=== PATIENT | male | born 1945 | race Caucasian/White ===

== ENCOUNTER 2017-08-01 06:37 | Inpatient (IN) | payer OTHER, SELFPAY ==
[2017-07-25 09:43] VITALS: BMI 34.8
[2017-08-01] VITALS (26 sets, daily range): BP systolic 95–155; BP diastolic 48–87; PULSE 59–75; RESP 8–17; TEMP 35.8–36.9; O2SAT 88–98; BMI 34.8
[2017-08-01] MEDS: LACTATED RINGERS 1,000 ML 42 ML IV ×4 (07:20→14:16)
--- NOTE | 2017-08-01 08:00 | DI.RAD.S_ITS ---
PROCEDURE: XR LUMBAR SPINE 2-3V INDICATIONS: L3-4, L4-5, L5-S1 TLIF TECHNIQUE: 2 views of the lumbar spine were acquired. COMPARISON: [facility] Outside Film, CR, XR LUMBAR SPINE 2 OR 3 VIEWS, 12/04/2016, 15:17. FINDINGS: 2 intraoperative fluoroscopy images demonstrate discectomy and posterior fusion at L3-L4, L5-L5 and L5-S1. Surgical hardware are in expected position. IMPRESSION: Discectomy and posterior fusion at L3-L4, L5-L5 and L5-S1. Dictated by: Wendie Castillo M.D. on 08/01/2017 at 14:30 Approved by: Wendie Castillo M.D. on 08/01/2017 at 14:32
[2017-08-01] MEDS: CEFAZOLIN 2 GM/100 ML FROZ.PIGGY IV ×3 (08:09→19:20)
--- NOTE | 2017-08-01 09:06 | SUR.OPER ---
Prone on spine table, head in foam head support, padded chest and pelvic supports, gel pad at knees, lower legs supported by pillows; nipples, genitalia and toes free of pressure, arms secured on foam padded arm boards at <90 degrees abduction. Tape over blanket at thigh secured to table.
[2017-08-01] MEDS: BUPIVACAINE 0.25% W/ EPI 50 ML VIAL INJ (09:13)
[2017-08-01] MEDS: BUPIVACAINE LIPOSOME 266 MG/20 ML VIAL INJ (09:14)
[2017-08-01] MEDS: ACETAMINOPHEN IV 1,000 MG/100 ML VIAL 400 MG IV (12:01)
--- NOTE | 2017-08-01 13:35 | PM.PREOP ---
Pre-operative Note Interval Note Pre-op Check: History & Physical Reviewed by Physician, Exam Performed and History & Physical exam performed today
--- NOTE | 2017-08-01 13:36 | PM.OP.1 ---
Operative Date/Time/Diagnoses - Date of procedure: 08/01/17 Time of procedure: 08:36 Pre-op diagnosis: 1. L3-4, L4-5, L5-S1 spinal stenosis. 2. L3-4, L4-5, L5-S1 spondylolisthesis 3. L3-4, L4-5, L5-S1 spondylosis with radiculopathy Post-op diagnosis: same Procedure & Clinicians Procedure: 1. L3-4, L4-5, L5-S1 Postero-lateral and posterior interbody fusion 2. L3-4, L4-5, L5-S1 interbody cage placement. 3. L3-4, L4-5, L5-S1 decompressive laminectomy with bilateral facetecomies 4. L3-4, L4-5, L5-S1 Posterior segmental instrumentation 5. [place] of bone marrow from iliac crest 6. Utilization of microsurgical technique and operating microscope Same procedure as scheduled: Yes Indications: Patient has been having chronic back pain and worsening lumbar radiculopathy. Patient failed multiple conservative management with worsening pain weakness and numbness in her lower extremity. Patient has been having difficulty performing activity of daily living. After discussing risks benefits of treatment options, patient elected proceed with surgery. Surgeon: Sabina Wayne [employer] Technician: Gali Garcia Click Yes if Unassisted: No Anesthesia Type: General Operative Notes Closure Type: primary Specimen(s): none sent Applied: catheter Estimated Blood Loss (mL): 400 Blood products transfused: none Procedure in detail: Patient was seen in the preoperative area. Risks and benefits of the surgery was discussed with the patient. Informed consent was obtained from the patient and placed in the chart. Surgical site was marked. Patient was taken to the operative room. General anesthesia was administered. Prophylactic antibiotic was given to the patient less than 30 min before the incision was made. Patient was placed into a prone position on the Rashaad table. Patient's back was then prepped and draped in the sterile fashion. Time-out was performed at this time. Using AP and lateral C-arm imaging the interval between L3-S1 was identified and marked on patient's back. A 3 inch incision 2 in from midline was made on the left side first. The fascia was incised in line with skin incision. Globus MARS retractors was placed inside the incision and docked onto the L3, L4 and L5 lamina. Using microsurgical technique and operating microscope, a L3, L4 and L5 laminectomy and L3-4, L4-5 L5-S1 facetectomy was performed using a Kerrison rongeur. The disc space at L3-4, L4-5, L5-S1 was identified. And a total diskectomy was performed at L3-4, L4-5, L5-S1 level. The endplates were decorticated using a rasp and shaver. The total diskectomy and decortication was performed at L3-4, L4-5, L5-S1 level in order to to accomplish a L3-4, L4-5, L5-S1 fusion. The local bone from the laminectomy and facetectomy was saved for local bone grafting. After the total diskectomy and decortication was completed, Globus viacell bone graft material was combined with local bone that was harvested earlier. At this time, a separate skin is incision was made over the iliac crest. A Jamshidi needle was inserted into the iliac crest through a separate skin incision. 5 cc of bone marrow aspiration was obtained through the separate skin incision using a Jamshidi needle from the iliac crest. The bone marrow aspiration was combined with local bone and the via cell bone grafting material. The bone grafting material was placed into the L3-4, L4-5, L5-S1 interbody space along with three cages, one expandable cage at each level. The cages were expanded to their maximum height using the torque limiting screwdriver. At this time a mirror image incision was made on the right side. The fascia was incised in line with the skin incision. Globus MARS retractor was inserted and docked onto the L3-4, L4-5, L5-S1 posterolateral gutter. Using the power drill, posterior-lateral decortication was performed at L3-4, L4-5, L5-S1 level until bleeding cortical bone was identified. The remaining bone grafting material was placed into the L3-4, L4-5 L5-S1 posterior lateral gutter he order to accomplish posterolateral fusion at the L3-4, L4-5 L5-S1 levels. Using the double C-arm technique, pedicle screws were placed into the L3, L4, L5, S1 pedicles bilaterally. This was done by placing the Jamshidi needle into the pedicles, then placing the guidewires over the Jamshidi needle, and finally placing the cannulated screws over the guidewires bilaterally. After the pedicle screws were placed, 2 titanium rods was locked into the heads of the pedicle screws using locking caps and torque limiting screwdriver. Total 8 pedicles screws were placed. After all the hardware was placed, and confirmed with AP and lateral C-arm imaging, the wound was then irrigated with sterile normal saline and packed with Ray-Reji gauze for 3 min to accomplish hemostasis. After the gauze was removed the deep fascia was closed with #1 Vicryl suture. The subcutaneous layer was closed with 2-0 Vicryl. The skin was closed with skin kaylee. Patient tolerated the procedure well. There were no complications. Complications: none Condition: stable Disposition: Acute Care Plan for aftercare: admit to inpatient hospital
--- NOTE | 2017-08-01 13:39 | P.OP_ITS ---
Operative Date/Time/Diagnoses - Date of procedure: 08/01/17 Time of procedure: 08:36 Pre-op diagnosis: 1. L3-4, L4-5, L5-S1 spinal stenosis. 2. L3-4, L4-5, L5-S1 spondylolisthesis 3. L3-4, L4-5, L5-S1 spondylosis with radiculopathy Post-op diagnosis: same Procedure & Clinicians Procedure: 1. L3-4, L4-5, L5-S1 Postero-lateral and posterior interbody fusion 2. L3-4, L4-5, L5-S1 interbody cage placement. 3. L3-4, L4-5, L5-S1 decompressive laminectomy with bilateral facetecomies 4. L3-4, L4-5, L5-S1 Posterior segmental instrumentation 5. [place] of bone marrow from iliac crest 6. Utilization of microsurgical technique and operating microscope Same procedure as scheduled: Yes Indications: Patient has been having chronic back pain and worsening lumbar radiculopathy. Patient failed multiple conservative management with worsening pain weakness and numbness in her lower extremity. Patient has been having difficulty performing activity of daily living. After discussing risks benefits of treatment options, patient elected proceed with surgery. Surgeon: Sabina Wayne Web Manager: Gali Garcia Click Yes if Unassisted: No Anesthesia Type: General Operative Notes Closure Type: primary Specimen(s): none sent Applied: catheter Estimated Blood Loss (mL): 400 Blood products transfused: none Procedure in detail: Patient was seen in the preoperative area. Risks and benefits of the surgery was discussed with the patient. Informed consent was obtained from the patient and placed in the chart. Surgical site was marked. Patient was taken to the operative room. General anesthesia was administered. Prophylactic antibiotic was given to the patient less than 30 min before the incision was made. Patient was placed into a prone position on the Rashaad table. Patient's back was then prepped and draped in the sterile fashion. Time- out was performed at this time. Using AP and lateral C-arm imaging the interval between L3-S1 was identified and marked on patient's back. A 3 inch incision 2 in from midline was made on the left side first. The fascia was incised in line with skin incision. Globus MARS retractors was placed inside the incision and docked onto the L3, L4 and L5 lamina. Using microsurgical technique and operating microscope, a L3, L4 and L5 laminectomy and L3-4, L4-5 L5-S1 facetectomy was performed using a Kerrison rongeur. The disc space at L3-4, L4-5, L5-S1 was identified. And a total diskectomy was performed at L3-4, L4-5, L5-S1 level. The endplates were decorticated using a rasp and shaver. The total diskectomy and decortication was performed at L3-4, L4-5, L5-S1 level in order to to accomplish a L3-4, L4-5 , L5-S1 fusion. The local bone from the laminectomy and facetectomy was saved for local bone grafting. After the total diskectomy and decortication was completed, Globus viacell bone graft material was combined with local bone that was harvested earlier. At this time, a separate skin is incision was made over the iliac crest. A Jamshidi needle was inserted into the iliac crest through a separate skin incision. 5 cc of bone marrow aspiration was obtained through the separate skin incision using a Jamshidi needle from the iliac crest. The bone marrow aspiration was combined with local bone and the via cell bone grafting material. The bone grafting material was placed into the L3-4, L4-5, L5-S1 interbody space along with three cages, one expandable cage at each level. The cages were expanded to their maximum height using the torque limiting screwdriver. At this time a mirror image incision was made on the right side. The fascia was incised in line with the skin incision. Globus MARS retractor was inserted and docked onto the L3-4, L4-5, L5-S1 posterolateral gutter. Using the power drill , posterior-lateral decortication was performed at L3-4, L4-5, L5-S1 level until bleeding cortical bone was identified. The remaining bone grafting material was placed into the L3-4, L4-5 L5-S1 posterior lateral gutter he order to accomplish posterolateral fusion at the L3-4, L4-5 L5-S1 levels. Using the double C-arm technique, pedicle screws were placed into the L3, L4, L5 , S1 pedicles bilaterally. This was done by placing the Jamshidi needle into the pedicles, then placing the guidewires over the Jamshidi needle, and finally placing the cannulated screws over the guidewires bilaterally. After the pedicle screws were placed, 2 titanium rods was locked into the heads of the pedicle screws using locking caps and torque limiting screwdriver. Total 8 pedicles screws were placed. After all the hardware was placed, and confirmed with AP and lateral C-arm imaging, the wound was then irrigated with sterile normal saline and packed with Ray-Reji gauze for 3 min to accomplish hemostasis. After the gauze was removed the deep fascia was closed with #1 Vicryl suture. The subcutaneous layer was closed with 2-0 Vicryl. The skin was closed with skin kaylee. Patient tolerated the procedure well. There were no complications. Complications: none Condition: stable Disposition: Acute Care Plan for aftercare: admit to inpatient hospital
[2017-08-01 14:19] LABS: Appearance Urine UA CLEAR; Bilirubin Urine UA NEGATIVE (NEGATIVE); Color Urine UA YELLOW; Glucose Urine UA NEGATIVE (Normal); Ketones Urine UA NEGATIVE (NEGATIVE); Leukocyte Esterase Urine UA NEGATIVE (NEGATIVE); Nitrite Urine UA POSITIVE (Negative); Occult Blood Urine UA 3+ (Negative); Protein Urine UA TRACE (Negative); Specific Gravity Urine UA 1.025 (1.000-1.035); Urobilinogen Urine UA 0.2 E.U./dL (0.2)
--- NOTE | 2017-08-01 14:25 | SUR.PHASEI ---
DR ROSEN TO BEDSIDE, PT ON NASAL CANNULA THEN ON SIMPLE MASK 02 FROM 6/L NOW 15. PT OPEN EYES TO LOUD NAME CALLING. RESPIRATIONS ARE EQUAL BUT SHALLOW. MORE RESPONSIVE TIME GOES ON, NOW MOVING ALL EXTREMITIES TO COMMAND
[2017-08-01 14:28] LABS: Bacteria Urine Few (2-10); WBC Urine 0-1/HPF (0-5/HPF)
[2017-08-01 14:29] LABS: Culture Indicated Urine Specimen Cultured; RBC Urine 5-10/HPF (0-5/HPF)
--- NOTE | 2017-08-01 14:54 | SUR.PHASEI ---
PT'S AIRWAY OUT, RT CALLED TO ASSIST WITH CPAP. SATS 91-93% ON CPAP WITH 12L OF 02 BLED IN. PT FOLLOWS COMMANDS, PT DIAPHORETIC, PT STATED YES WHEN ASKED IF HE WAS HOT. PT'S HEAVY BLANKETS REMOVED, LEFT WITH SHEET.
--- NOTE | 2017-08-01 15:21 | SUR.PHASEI ---
PT'S 02 90-96% ON CPAP WITH 14/L 02. VSS, TAKING ICE CHIPS WELL. DENIES PAIN, STILL SLEEPY EASILY AROUSABLE AND FOLLOWS COMMANDS, DRESSING TO BACK REMAINS C/D/I.
--- NOTE | 2017-08-01 15:28 | SUR.PHASEI ---
LATE ENTRY: UPON ARRIVAL TO PACU URINE CLOUDY/PURULENT- DR MONSIVAIS INFORMED AND UAC SENT TO LAB.
--- NOTE | 2017-08-01 16:22 | SUR.PHASEI ---
spoke with dr delarosa and dr mayo about pt's mentation, vss and oxygen needs and neuro status. both agreeded that pt was ok to go to acute care along with ordered RT consult and continuous pulse ox. both understood valerie score was 8. report updated to dorian on acute care and pt transferred up to room 204 on nasal cannula 02 4/l and left in stable condition.
[2017-08-01] MEDS: SODIUM CHLORIDE 0.9% 1,000 ML 100 ML IV (17:13)
[2017-08-01] MEDS: OXYCODONE IR 5 MG TABLET 10 MG PO ×2 (19:20→23:59)
--- NOTE | 2017-08-01 20:45 | PC.NURSE ---
1610 Pt arrived to room 204 from PACU via bed. SpO2 96% 2Lnc, brought own CPAP for sleeping. LS clear, BT hypo and tolerating ice chips. Lower back drsg CDI, CMS ++ full sensation, move BLE's, wiggle toes and ankles, move UE's, repositioning PRN. Berger patent and draining clear yellow urine, reported purulence drainage with placement, lab specimen pending. Hx of Parkinson's, pt brought own Parkinson's medication, Rytary, which pt takes 30min before or after meals (protein). Pt reports strict regimen for this medication. denied pain at begining, but reported 03/17 1919, but declined to take 10mg, 2 tabs percolone as ordered, took 5mg, 1 tab, effective. is caregiver as well, and has a method for transfering pt. rooming in.
[2017-08-01] MEDS: TAMSULOSIN 0.4 MG CAPSULE PO (21:43)
[2017-08-01] MEDS: LOSARTAN 50 MG TABLET PO (21:43)
[2017-08-01] MEDS: DOCUSATE 100 MG CAPSULE PO (21:43)
[2017-08-01] MEDS: SENNOSIDES 8.6 MG TABLET 17.2 MG PO (21:43)
[2017-08-02] VITALS (7 sets, daily range): BP systolic 121–138; BP diastolic 64–77; PULSE 65–77; RESP 16–17; TEMP 36.5–37.4; O2SAT 91–100
[2017-08-02] MEDS: hydrOXYzine pamoate 25 MG CAPSULE PO ×2 (00:01→15:59)
[2017-08-02] MEDS: SODIUM CHLORIDE 0.9% 1,000 ML 100 ML IV (03:19)
[2017-08-02] MEDS: CEFAZOLIN 2 GM/100 ML FROZ.PIGGY IV (03:20)
[2017-08-02] MEDS: OXYCODONE IR 5 MG TABLET 10 MG PO ×4 (03:25→16:03)
[2017-08-02 06:54] LABS: Hematocrit 37.8 % (41-53); Hemoglobin 12.7 g/dL (13.5-17.5)
[2017-08-02] MEDS: ACETAMINOPHEN 325 MG TABLET 650 MG PO ×3 (08:01→19:09)
--- NOTE | 2017-08-02 09:10 | PT.IIE ---
Current Diagnoses Spondylolisthesis, lumbar region (08/01/17) Other spondylosis with radiculopathy, lumbar region (08/01/17) Spinal stenosis, lumbar region without neurogenic claudication (08/01/17) Surgery Performed Operation Date: 08/01/17 07:45 Actual Procedures p L3-4,L4-5,L5-S1 TLIF w/Posterior Ximena Wayne MD Surgical History (Last Updated 07/25/17 @ 10:17 by Florina Taylor RN) Hx of hernia repair (Acute) Hx of prostate biopsy (Acute) Hx of right knee surgery (Acute) Hx of shoulder surgery (Acute) Medical History (Last Updated 07/25/17 @ 10:17 by Florina Taylor RN) Arthritis (Acute) Basal cell carcinoma (BCC) (Acute) Cervical radiculopathy (Acute) Elevated PSA (Acute) HTN (hypertension) (Acute) Heart murmur (Acute) History of bladder stone (Acute) Intermittent tremor (Acute) Paresthesias (Acute) Parkinson's disease (Acute) Skin cancer (Acute) Sleep apnea with use of continuous positive airway pressure (CPAP) (Acute) Spinal stenosis (Acute) Physical Therapy Inpatient Evaluation/Re-Eval M1 PT/OT-IP Prior Functional Status Start: 08/02/17 12:19 Freq: NEEDED Status: Active Protocol: Document 08/02/17 09:10 AB (Rec: 08/02/17 12:46 AB [id number]) Medical Review Prior Functional Status Medical History Reviewed Yes Mobility and Gait pt stated that he is able to ambulate without AD for ~ 150 ft Activities of Daily Living and IADL's stated that his assists him with dressing, bed mobility and sit <>stand Social History Household Members spouse family other Living Arrangements House Number of Floors (Floors) One Floor Number of Stairs To Enter/Railing? has a 5 inch step to enter Home Environment Walk in Shower Home Equipment Raised Toilet Seat w/Armrests Shower Seat with Backrest Hand Held Shower Grab Bars Near Toilet Grab Bars In Shower Employment Status Retired Additional Social History Comment pt's stated that her dad also lives with them and she somewhat takes care of him as well. M2 PT-IP Current Condition Start: 08/02/17 12:19 Freq: NEEDED Status: Active Protocol: Document 08/02/17 09:10 AB (Rec: 08/02/17 12:46 AB [id number]) Physical Therapy Current Condition Current Condition Evaluation Date 08/02/17 Treatment Diagnosis s/p TLIF Onset Date 08/01/17 Precautions Lumbar Precautions Log Roll No Twisting Limit Bending Lifting Restriction of 10 lbs Gait Belt above Incisional Area M3 PT-IP Subjective Start: 08/02/17 12:19 Freq: NEEDED Status: Active Protocol: Document 08/02/17 09:10 AB (Rec: 08/02/17 12:46 AB [id number]) Subjective Physical Therapy Visit Type Type Initial Evaluation Visit Start Time 09:10 Visit Stop Time 10:00 Total Visit Minutes 50 Number of RECORDS SPECIALIST Visits 0 Physical Therapy Visit Comments Patient Comments i feel ok Therapy Pain Assessment Pain When Pain Assessed At Rest Pain Present Pain Present Pain Reported Location BACK Intensity 3 Scale Used Numeric (1 - 10) Pain Management Techniques Apply Cold Re-positioning Timing of Activity with Medications M4 PT-IP Mobility and Gait Start: 08/02/17 12:19 Freq: NEEDED Status: Active Protocol: Document 08/02/17 09:10 AB (Rec: 08/02/17 12:46 AB [id number]) PT-Bed Mobility Assessment Rolling Type of Rolling Log Rolling Level of Assist Maximal Assistance 1 Person Assistance Supine to Sit Supine to Sit Maximum Assistance 1 Person Assistance PT-Transfer Assessment Sit to and From Stand Sit to and from Stand Maximum Assistance 1 Person Assistance Equipment Transfer Assistive Device Gait Belt Front Wheeled Walker Transfers Transfer Destination Chair Transfer Technique Stand Step Pivot Transfer Ability Level of Assist Maximum Assistance 1 Person Assistance Use of Upper Extremities Comments Mobility Comments pt with (+) LLE tremors affecting mobility. pt's spouse stated that pt also has bad shoulders and needing surgeries and will not be able to use UE much. Gait Assessment Gait Gait Assistance Required: Maximum Assistance Distance (Feet) (feet) 8 Able to Maintain Weight Bearing Status Yes During Gait Assistive Devices Assistive Device Gait Belt Front Wheeled Walker Orthotic/Prosthetic Devices or Brace: No Gait Deviations General Gait Pattern Antalgic Decreased Stride Length Decreased Feet Clearance Step-to Gait Factors Limiting Gait Function Factors Limiting Gait Function Abnormal Tonal Influences Decreased Activity Tolerance Decreased Strength Difficulty Following Directions Pain Poor Balance Poor Safety Awareness PT-Balance Assessment Sitting Balance and Reactions Static Sitting Balance Ability Good Dynamic Sitting Balance Ability Fair Standing Balance and Reactions Static Standing Balance Ability Poor Dynamic Standing Balance Ability Poor M5 PT-IP Objective Assessments Start: 08/02/17 12:19 Freq: NEEDED Status: Active Protocol: Document 08/02/17 09:10 AB (Rec: 08/02/17 12:46 AB [id number]) Orientation Orientation/Cognition Level of Alertness Alert Orientation Name Place Situation Safety Awareness Decreased Safety Awareness Strength Lower Extremity Strength Assessment Bilaterally Impaired Hip 4-/5 Knee 3+/5 Muscle Tone Comments Muscle Tone Comments (+) LLE resting tremor M6 PT-IP Treatment Start: 08/02/17 12:19 Freq: NEEDED Status: Active Protocol: Document 08/02/17 09:10 AB (Rec: 08/02/17 12:46 AB [id number]) Physical Therapy Treatment Education Education Provided Precautions Weight Bearing Status Post-Op Packet Safety M7 PT-IP Assessment and Plan Start: 08/02/17 12:19 Freq: NEEDED Status: Active Protocol: Document 08/02/17 09:10 AB (Rec: 08/02/17 12:46 AB [id number]) PT Summary Assessment and Plan Potential Rehabilitation Potential Fair Status of Condition at Evaluation Evolving Summary Impairments Pain ROM Strength Balance Coordination Sensation Tone Cognition Bed Mobility Transfers Gait Activity Tolerance Assessment Summary pt requiring max A with all mobility at this time. d/c plan depending if spouse will be able to assist pt safely. will conduct caregiver training and stair training and if able to safely complete , pt may go home with homehealth services but at this time pt may require SNF rehab. Goals Bed Mobility Goal Minimal Assistance Transfer Goal Minimal Assistance Gait Goal Minimal Assistance Gait Distance 10 Other Goals up/down 1 step using FWW Days to Meet Goals 3 Frequency of Treatment Frequency Of Treatment Twice a Day Treatment Plan Physical Therapy Treatment Plan Bed Mobility Training Transfer Training Gait Training Therapeutic Exercise Balance Retraining Post Op Education Discharge Planning Hot or Cold Pack Neuromuscular Re-ed Coordination Retraining Manual Therapy Other Recommendations and Next Treatment transfers, ambulation Focus Recommendations To Nursing Amount of Assist Needed 2 Person Assist Discharge Recommendations PT Discharge Recommendations SNF Rehab Equipment Needed for Home Before may need FWW if pt is going Discharge home
--- NOTE | 2017-08-02 10:13 | PM.PNPO.1 ---
Subjective Date Patient Seen: 08/02/17 Time Patient Seen: 10:13 Interval history: Hospital day 2, postop day 1 following L3-4 through L5-S1 TLIF, cage, posterior screw fixation by Dr. Wright. Patient remained stable postoperatively. He has not been out of bed yet. No physical therapy yet. Does have a Berger catheter in place. Taking oxycodone for pain. He states his preoperative leg pain has improved since surgery. The patient does have Parkinson's. His is staying in the room with him. Exam Vital Signs (past 8 hours): - 08/02/17 04:55 08/02/17 08:00 Temperature 97.7 F 98.4 F Pulse Rate 70 65 Respiratory Rate 16 16 Blood Pressure 121/67 H 132/75 H Pulse Oximetry 100 99 Fraction of Inspired Oxygen 28 Oxygen Delivery Method Nasal Cannula Oxygen Flow Rate 2 Narrative Exam Narrative: Alert, oriented no acute distress resting in bed. Legs. No calf pain or swelling. Pulses symmetrical. Good sensation to touch to the lower legs. Good strength on foot dorsiflexion plantar flexion. Objective Labs Result Diagrams: 08/02/17 06:25 Labs: Laboratory Results - last 24 hr 08/01/17 08/02/17 13:53 06:25 Hgb 12.7 L Hct 37.8 L Urine Color Yellow Urine Appearance Clear Urine pH 5.0 Ur Specific [place] 1.025 Urine Protein Trace H Urine Glucose (UA) Negative Urine Ketones Negative Urine Occult Blood 3+ H Urine Nitrate Positive Urine Bilirubin Negative Urine Urobilinogen 0.2 Ur Leukocyte Esterase Negative Urine RBC 5-10/hpf H Urine WBC 0-1/hpf Urine Bacteria Few (2-10) H Ur Culture Indicated? Specimen cultured Micro UA Comment Not Reportable Assessment & Plan Post-op Postoperative Procedures Operation Date: 08/01/17 07:45 Actual Procedures Side Surgeon p L3-4,L4-5,L5-S1 TLIF w/Posterior Instru Sabina Wayne MD Postoperative day: 1 Postoperative status: doing well Postoperative plan: routine post-op care Time Spent With Patient less than 15 minutes
--- NOTE | 2017-08-02 11:02 | CM.DANOTE ---
DCP: assessment: case received, EMR reviewed and met with pt, his Alana ([phone]) and daughter Kira. Introduced self and role. DCP template: completed with info currently available. Pt is a 72 year old male with dx of Parkinson's who admitted yesterday for a planned spinal surgery. Surgeon: Dr. Wayne Payer: [facility] ADV. No [facility] CM is yet assigned, per [facility] PAS report. PT and OT will see pt today for the first time. Pt and his state they are hopeful that he will be able to d/c to home. His is able to provide supportive care and already does help him with transfers in and out of chairs and bed and with dressing. Alana asks about snf and says we were told he would have 100 days if needed. Explained [facility] snf process. SNF choice list: discussed: 1 [facility] 2 [facility] ([facility] has called and confirmed both are [place] with [place]). Pt and Alana are now aware that [facility] auth would be needed and if not received snf care would be under a private pay status. P: agreed to check in again tomorrow after OT and PT notes are in and see if snf request to [facility] will be needed. Pt and Alana both again express their confidence that pt will be able to go home at d/c. Home vs snf...in process.
--- NOTE | 2017-08-02 11:54 | OT.IP.EVAL ---
Current Diagnoses Spondylolisthesis, lumbar region (08/01/17) Other spondylosis with radiculopathy, lumbar region (08/01/17) Spinal stenosis, lumbar region without neurogenic claudication (08/01/17) Surgery Performed Operation Date: 08/01/17 07:45 Actual Procedures p L3-4,L4-5,L5-S1 TLIF w/Posterior Ximena Wayne MD Past Medical History (Last Updated 07/25/17 @ 10:17 by Florina Taylor RN) Arthritis (Acute) Basal cell carcinoma (BCC) (Acute) Cervical radiculopathy (Acute) Elevated PSA (Acute) HTN (hypertension) (Acute) Heart murmur (Acute) History of bladder stone (Acute) Intermittent tremor (Acute) Paresthesias (Acute) Parkinson's disease (Acute) Skin cancer (Acute) Sleep apnea with use of continuous positive airway pressure (CPAP) (Acute) Spinal stenosis (Acute) Surgical History (Last Updated 07/25/17 @ 10:17 by Florina Taylor RN) Hx of hernia repair (Acute) Hx of prostate biopsy (Acute) Hx of right knee surgery (Acute) Hx of shoulder surgery (Acute) Occupational Therapy Inpatient Evaluation/Re-Eval M1 PT/OT-IP Prior Functional Status Start: 08/02/17 12:19 Freq: NEEDED Status: Active Protocol: Document 08/02/17 11:54 DENY (Rec: 08/02/17 17:09 DENY [id number]) Medical Review Prior Functional Status Medical History Reviewed Yes Diet/Fluid Consistency Regular Communication WFL Mobility and Gait pt stated that he is able to ambulate without AD for ~ 150 ft Activities of Daily Living and IADL's Pt is independent but slow ith eating, oral care and face washing. assists with hair care due to decreased B shoulder AROM. assists pt with upper and lower body dressing. Pt was indep with standing shower and toileting. Pt still drives. Prior Functional Level (Other details) does all IADLS, manages meds and finances. Social History Household Members spouse family other Living Arrangements House Number of Floors (Floors) One Floor Home Environment Standard Height Toilet Walk in Shower Home Equipment Raised Toilet Seat w/Armrests Shower Seat with Backrest Hand Held Shower Grab Bars Near Toilet Grab Bars In Shower Employment Status Retired Additional Social History Comment pt can use father in law's more accessible bathroom M2 OT-IP Current Condition Start: 08/02/17 16:42 Freq: Status: Active Protocol: Document 08/02/17 11:54 PJM (Rec: 08/02/17 17:09 PJ [email or web address]) Occupational Therapy Current Condition Current Condition Evaluation Date 08/02/17 Treatment Diagnosis decreased self care/functional mobility s/p lumbar lami/ fusion w/Parkinsons Diagnosis Onset Date 08/01/17 Post Operative Precautions Lumbar Precautions Log Roll No Twisting Limit Bending Lifting Restriction of 10 lbs Gait Belt above Incisional Area M3 OT- IP Subjective and Pain Start: 08/02/17 16:42 Freq: Status: Active Protocol: Document 08/02/17 11:54 PJM (Rec: 08/02/17 17:09 PJM [email or web address]) OT- Subjective Occupational Therapy Visit Type Type Initial Evaluation Visit Start Time 11:15 Visit Stop Time 11:54 Total Visit Minutes 39 Occupational Therapy Visit Comments Patient/Caregiver Goals to have less back pain and be able to proceed with L TSA OT Pain Assessment Pain When Pain Assessed After Treatment Pain Present Pain Present Pain Reported Location BACK Intensity 5 Scale Used Numeric (1 - 10) Description Aching Pain Behaviors Guarding M4 OT- IP ADL's Start: 08/02/17 16:42 Freq: Status: Active Protocol: Document 08/02/17 11:54 PJM (Rec: 08/02/17 17:09 PJ [email or web address]) OT [id number] General Evaluation Self-Feeding Ability Independent OT ADL-Grooming General Evaluation Grooming Ability Minimal Assistance Areas Needing Assistance Combing/Brushing Hair Comments OT Grooming Comments pt has difficulty reaching top na back of head due to decreased shoulder AROM OT ADL-Oral Care Comments Oral Care Comments to be assessed OT ADL-Dressing General Eval Upper Body Dressing Ability Moderate Assistance Lower Body Dressing Ability Total Assistance Comments OT Dressing Comments began education re: lower body dressing with adaptive equipt with emphasis on lumbar spine precautions OT ADL-Toileting General Evaluation Toileting Ability Maximum Assistance Comments OT Toileting Comments pt still ahs blakely in place; provided education and resource infromation re: toilet paper aids OT ADL-Bathing Bathing Type Bathing Type Shower Comments OT Bathing Comments to be assessed M5 OT- IP IADL's Start: 08/02/17 16:42 Freq: Status: Active Protocol: Document 08/02/17 11:54 PJM (Rec: 08/02/17 17:09 PJM [email or web address]) OT-Instrumental Activities of Daily Living Deficits IADL Deficits Identified Deficits Home Safety Awareness Awareness of Need for Assistance at Home Good Awareness Medication Management Medication Management Caregiver Provides Supervision Caregiver Administers Money Management Money Management Caregiver Provides Assistance Meal Preparation Meal Preparation Caregiver Provides Assist Transmission Tester Transmission Tester Caregiver Provides Assist Driving Driving Concerns Identified Regarding Safety Driving Comments Pt states he still drives but admits to difficulty with LE motor control. M6 OT- IP Functional Cognition Start: 08/02/17 16:42 Freq: Status: Active Protocol: Document 08/02/17 11:54 PJM (Rec: 08/02/17 17:09 PJM NR) Cognitive Factors Limiting Selfcare Function Cognitive Ability Level of Alertness Alert Attention Span Ability Capable of Focused Attention Capable of Sustained Attention Ability to Follow Commands Able to Follow One Step Commands OT- Vision and Hearing OT- Hearing Assessment OT- Hearing Assessment WFL OT- Vision Assessment Visual Acuity WFL Vision Assessment Comments Pt denies any recent changes M7 OT- IP Mobility and Balance Start: 08/02/17 16:42 Freq: Status: Active Protocol: Document 08/02/17 11:54 PJM (Rec: 08/02/17 17:09 PJM NRTM) OT-Transfer Assessment Comments Mobility Comments See P.T. eval OT- Gait Assessment Comments Gait Ability Comments See P.T. eval OT- Balance Assessment Sitting Balance and Reactions Static Sitting Balance Ability Normal M8 OT- IP Objective Assessments Start: 08/02/17 16:42 Freq: Status: Active Protocol: Document 08/02/17 11:54 PJM (Rec: 08/02/17 17:09 PJM [email or web address]) OT Gross Range of Motion Upper Extremity Range of Motion Assessment Left Impaired ROM Impairments R shoulder scaption limited to ~90 degrees, L shsoulder scaption limited to about 45 degrees. Pt states he needs B shoulder surgery and will have L TSA when recovered from back surgery. Distal AROM WFL. OT Strength Upper Extremity Strength Assessment Left Impaired Shoulder 3/5 R, 3-/5 L Elbow WFL Wrist WFL Hand WFL OT- Coordination Assessment Comments Coordination Comments generally slowed motor movements, no tremors noted this session OT-Muscle Tone Assessment Comments Muscle Tone Comments pt has genralized stiffness from Parkinsons OT Sensation Assessment Comments Summary Comments Pt denies deficits in BUE's M9 OT- IP Assessment and Plan Start: 08/02/17 16:42 Freq: Status: Active Protocol: Document 08/02/17 11:54 PJM (Rec: 08/02/17 17:09 PJM [email or web address]) OT Summary Assessment and Plan Potential Rehabilitation Potential Good Analytic Complexity at Evaluation Moderate Summary OT Impairments Pain Range of Motion Strength Balance Coordination Functional Mobility Grooming Dressing Toileting Bathing Toilet Transfers Shower Transfers Assessment Summary Moderate complexity OT assessment due to comorbidity of Parkinsons disease. Pt is far below his baseline level of function and currently requires total assist with lower body dressing and toileting, and at least mod assist with bathing. He also has significant performance deficits in all functional mobility and transfers. Recommend short term SNF at discharge to increase activity tolerance, independence and safety prior to return home home with 24 hr assist from capable . Goals Grooming Goal Minimal Assistance Dressing Goal Minimal Assistance Toileting Goal Standby Assistance Bathing Goal Minimal Assistance Toilet Transfer Goal Standby Assistance Shower Transfer Goal Standby Assistance Patient/Caregiver Education Goal Demonstrate Post-Op Precautions Caregiver Independent Assisting Patient Days to Meet Goals 7 Frequency of Treatment Frequency Of Treatment Once a Day Treatment Plan OT Treatment Plan ADL Training Functional Mobility Patient/Family Education Discharge Planning Other Treatment Recommendations and Next begin training with lower body Treatment Focus dressing; walk to sink if mobilizing with P.T.; toilet transfers Discharge Recommendations OT Discharge Recommendations SNF Rehab
--- NOTE | 2017-08-02 15:20 | PT.IPTN ---
Current Diagnoses Spondylolisthesis, lumbar region (08/01/17) Other spondylosis with radiculopathy, lumbar region (08/01/17) Spinal stenosis, lumbar region without neurogenic claudication (08/01/17) Surgery Performed Operation Date: 08/01/17 07:45 Actual Procedures p L3-4,L4-5,L5-S1 TLIF w/Posterior Ximena Wayne MD Physical Therapy Treatment Note M2 PT-IP Current Condition Start: 08/02/17 12:19 Freq: NEEDED Status: Active Protocol: Document 08/02/17 09:10 AB (Rec: 08/02/17 12:46 AB [id number]) Physical Therapy Current Condition Current Condition Evaluation Date 08/02/17 Treatment Diagnosis s/p TLIF Onset Date 08/01/17 Precautions Lumbar Precautions Log Roll No Twisting Limit Bending Lifting Restriction of 10 lbs Gait Belt above Incisional Area M3 PT-IP Subjective Start: 08/02/17 12:19 Freq: NEEDED Status: Active Protocol: Document 08/02/17 15:20 GGD (Rec: 08/02/17 16:58 GGD [email or web address]) Subjective Physical Therapy Visit Type Type Treatment Note Visit Start Time 14:30 Visit Stop Time 15:20 Total Visit Minutes 50 Number of SWIMMING POOL SERVICER Visits 1 Physical Therapy Visit Comments Patient Comments Pt state he is tired. Therapy Pain Assessment Pain When Pain Assessed At Rest Pain Present Pain Present Pain Reported Location BACK Intensity 3 Scale Used Numeric (1 - 10) Pain Management Techniques Re-positioning Timing of Activity with Medications M4 PT-IP Mobility and Gait Start: 08/02/17 12:19 Freq: NEEDED Status: Active Protocol: Document 08/02/17 15:20 GGD (Rec: 08/02/17 16:58 GGD [email or web address]) PT-Bed Mobility Assessment Rolling Type of Rolling Log Rolling Roll to Left Level of Assist Moderate Assistance Sit to Supine Sit to Supine Moderate Assistance 1 Person Assistance Bedrails Scooting Scooting to Edge of Bed Maximum Assistance PT-Transfer Assessment Sit to and From Stand Sit to and from Stand Moderate Assistance 1 Person Assistance Use of Upper Extremities Equipment Transfer Assistive Device Gait Belt Front Wheeled Walker Transfers Transfer Destination Bed Bedside Commode Gait Assessment Gait Gait Assistance Required: Moderate Assistance 1 Person Assist Distance (Feet) (feet) 15 Assistive Devices Assistive Device Gait Belt Front Wheeled Walker Gait Deviations General Gait Pattern Antalgic Decreased Stride Length Decreased Feet Clearance Step-to Gait Factors Limiting Gait Function Factors Limiting Gait Function Abnormal Tonal Influences Decreased Activity Tolerance Decreased Strength Difficulty Following Directions Pain Poor Balance Poor Safety Awareness Comments Gait Comments Pt had unsteadiness and knee buckling one time with gait, he was able to self steady with FWW. M5 PT-IP Objective Assessments Start: 08/02/17 12:19 Freq: NEEDED Status: Active Protocol: Document 08/02/17 09:10 AB (Rec: 08/02/17 12:46 AB [id number]) Orientation Orientation/Cognition Level of Alertness Alert Orientation Name Place Situation Safety Awareness Decreased Safety Awareness Strength Lower Extremity Strength Assessment Bilaterally Impaired Hip 4-/5 Knee 3+/5 Muscle Tone Comments Muscle Tone Comments (+) LLE resting tremor M6 PT-IP Treatment Start: 08/02/17 12:19 Freq: NEEDED Status: Active Protocol: Document 08/02/17 15:20 GGD (Rec: 08/02/17 16:58 GGD [email or web address]) Physical Therapy Treatment Other Treatments Other Treatment Performed sit to stand x 3, Standing marches in walker before gait or transfers. M7 PT-IP Assessment and Plan Start: 08/02/17 12:19 Freq: NEEDED Status: Active Protocol: Document 08/02/17 15:20 GGD (Rec: 08/02/17 16:58 GGD [email or web address]) PT Summary Assessment and Plan Summary Assessment Summary Pt need Mod A with mobility and max cues. He did have unsteadiness and knee buckling with gait. He did improve with sit to stand with cues and from raised bed. Frequency of Treatment Frequency Of Treatment Twice a Day Treatment Plan Physical Therapy Treatment Plan Bed Mobility Training Transfer Training Gait Training Therapeutic Exercise Balance Retraining Post Op Education Discharge Planning Hot or Cold Pack Neuromuscular Re-ed Coordination Retraining Manual Therapy Other Recommendations and Next Treatment transfers, ambulation Focus Recommendations To Nursing Amount of Assist Needed 2 Person Assist Discharge Recommendations PT Discharge Recommendations SNF Rehab Equipment Needed for Home Before may need FWW if pt is going Discharge home
[2017-08-02] MEDS: LOSARTAN 50 MG TABLET PO (20:26)
[2017-08-02] MEDS: TAMSULOSIN 0.4 MG CAPSULE PO (20:26)
[2017-08-02] MEDS: SODIUM CHLORIDE 0.9% FLUSH 10 ML IV (20:27)
[2017-08-02] MEDS: SENNOSIDES 8.6 MG TABLET 17.2 MG PO (20:49)
[2017-08-02] MEDS: DOCUSATE 100 MG CAPSULE PO (20:49)
[2017-08-03] MEDS: ACETAMINOPHEN 325 MG TABLET 650 MG PO ×5 (00:09→23:58)
[2017-08-03] MEDS: hydrOXYzine pamoate 25 MG CAPSULE PO ×2 (00:10→07:05)
[2017-08-03 04:45] VITALS: BP 118/63; PULSE 72; RESP 16; TEMP 37; O2SAT 94
[2017-08-03 07:30] VITALS: BP 122/69; PULSE 70; RESP 16; TEMP 37.1; O2SAT 95
--- NOTE | 2017-08-03 07:31 | PM.PNPO.1 ---
Subjective Date Patient Seen: 08/03/17 Time Patient Seen: 07:31 Interval history: Pt is PD 2 following L3-4 through L5-S1 TLIF, cage, posterior screw fixation by Dr. Wayne. History of Parkinson's disease. His only mobilize into a chair with physical therapy yesterday. Pain controlled with current pain meds. Berger still in. is present in room. Plan is to be discharged home eventually but they are looking into a SNF if he is too slow to mobilize. Exam Vital Signs (past 8 hours): - 08/03/17 04:45 Temperature 98.6 F Pulse Rate 72 Respiratory Rate 16 Blood Pressure 118/63 Pulse Oximetry 94 Fraction of Inspired Oxygen 28 Oxygen Delivery Method Nasal Cannula Oxygen Flow Rate 2 Narrative Exam Narrative: Patient in bed. CPAP on. Bilateral calves soft and nontender. 5/5 BLE strength. Neurovascular status intact. Patient alert orient x3. Objective Labs Result Diagrams: 08/02/17 06:25 Assessment & Plan Post-op Postoperative Procedures Operation Date: 08/01/17 07:45 Actual Procedures Side Surgeon p L3-4,L4-5,L5-S1 TLIF w/Posterior Instru Sabina Wayne MD PD 2 S/P L3-4 through L5-S1 TLIF, cage, posterior screw fixation by Dr. Wayne. Patient to mobilize more with physical therapy today. DC Berger within more mobile. Continue pain medication as needed. May be discharged home in the next day or to or to SNF. Time Spent With Patient less than 15 minutes
[2017-08-03] MEDS: OXYCODONE IR 5 MG TABLET 10 MG PO ×2 (07:34→15:14)
[2017-08-03] MEDS: DOCUSATE 100 MG CAPSULE PO ×2 (08:52→20:18)
[2017-08-03] MEDS: SODIUM CHLORIDE 0.9% FLUSH 10 ML IV ×2 (08:52→20:19)
--- NOTE | 2017-08-03 09:25 | PT.IPTN ---
Current Diagnoses Spondylolisthesis, lumbar region (08/01/17) Other spondylosis with radiculopathy, lumbar region (08/01/17) Spinal stenosis, lumbar region without neurogenic claudication (08/01/17) Surgery Performed Operation Date: 08/01/17 07:45 Actual Procedures p L3-4,L4-5,L5-S1 TLIF w/Posterior Ximena Wayne MD Physical Therapy Treatment Note M2 PT-IP Current Condition Start: 08/02/17 12:19 Freq: NEEDED Status: Active Protocol: Document 08/02/17 09:10 AB (Rec: 08/02/17 12:46 AB [id number]) Physical Therapy Current Condition Current Condition Evaluation Date 08/02/17 Treatment Diagnosis s/p TLIF Onset Date 08/01/17 Precautions Lumbar Precautions Log Roll No Twisting Limit Bending Lifting Restriction of 10 lbs Gait Belt above Incisional Area M3 PT-IP Subjective Start: 08/02/17 12:19 Freq: NEEDED Status: Active Protocol: Document 08/03/17 09:25 GGD (Rec: 08/03/17 12:47 GGD [id number]) Subjective Physical Therapy Visit Type Type Treatment Note Visit Start Time 08:45 Visit Stop Time 09:25 Total Visit Minutes 40 Number of NEURODIAGNOSTIC TECHNICIAN Visits 2 Physical Therapy Visit Comments Patient Comments Pt states he moving better. Therapy Pain Assessment Pain When Pain Assessed At Rest Pain Present Pain Present Pain Reported Location BACK Intensity 3 Pain Management Techniques Re-positioning Timing of Activity with Medications M4 PT-IP Mobility and Gait Start: 08/02/17 12:19 Freq: NEEDED Status: Active Protocol: Document 08/03/17 09:25 GGD (Rec: 08/03/17 12:47 GGD [id number]) PT-Bed Mobility Assessment Rolling Type of Rolling Log Rolling Roll to Left Level of Assist Moderate Assistance Sit to Supine Sit to Supine Moderate Assistance 1 Person Assistance Bedrails Scooting Scooting to Edge of Bed Minimal Assistance PT-Transfer Assessment Sit to and From Stand Sit to and from Stand Moderate Assistance 1 Person Assistance Use of Upper Extremities Equipment Transfer Assistive Device Gait Belt Front Wheeled Walker Transfers Transfer Destination Bed Bedside Commode Gait Assessment Gait Gait Assistance Required: Minimum Assistance 1 Person Assist Distance (Feet) (feet) 30 Assistive Devices Assistive Device Gait Belt Front Wheeled Walker Gait Deviations General Gait Pattern Antalgic Decreased Stride Length Decreased Feet Clearance Step-to Gait Factors Limiting Gait Function Factors Limiting Gait Function Abnormal Tonal Influences Decreased Activity Tolerance Decreased Strength Difficulty Following Directions Pain Poor Balance Poor Safety Awareness M5 PT-IP Objective Assessments Start: 08/02/17 12:19 Freq: NEEDED Status: Active Protocol: Document 08/02/17 09:10 AB (Rec: 08/02/17 12:46 AB [id number]) Orientation Orientation/Cognition Level of Alertness Alert Orientation Name Place Situation Safety Awareness Decreased Safety Awareness Strength Lower Extremity Strength Assessment Bilaterally Impaired Hip 4-/5 Knee 3+/5 Muscle Tone Comments Muscle Tone Comments (+) LLE resting tremor M6 PT-IP Treatment Start: 08/02/17 12:19 Freq: NEEDED Status: Active Protocol: Document 08/03/17 09:25 GGD (Rec: 08/03/17 12:47 GGD [id number]) Physical Therapy Treatment Education Education Provided Precautions Other Treatments Other Treatment Performed Standing marches in FWW. M7 PT-IP Assessment and Plan Start: 08/02/17 12:19 Freq: NEEDED Status: Active Protocol: Document 08/03/17 09:25 GGD (Rec: 08/03/17 12:47 GGD [id number]) PT Summary Assessment and Plan Summary Assessment Summary Pt improving slowly with mobility. He need less assist with mobility, but max cues. If pt continues to improve he maybe able to return home with assistance. He may need an extra day to continue improving. Frequency of Treatment Frequency Of Treatment Twice a Day Treatment Plan Physical Therapy Treatment Plan Bed Mobility Training Transfer Training Gait Training Therapeutic Exercise Balance Retraining Post Op Education Discharge Planning Hot or Cold Pack Neuromuscular Re-ed Coordination Retraining Manual Therapy Other Recommendations and Next Treatment transfers, ambulation Focus Recommendations To Nursing Amount of Assist Needed 2 Person Assist Discharge Recommendations PT Discharge Recommendations SNF Rehab Equipment Needed for Home Before may need FWW if pt is going Discharge home
--- NOTE | 2017-08-03 10:55 | OT.IP.TRT ---
Current Diagnoses Spondylolisthesis, lumbar region (08/01/17) Other spondylosis with radiculopathy, lumbar region (08/01/17) Spinal stenosis, lumbar region without neurogenic claudication (08/01/17) Surgery Performed Operation Date: 08/01/17 07:45 Actual Procedures p L3-4,L4-5,L5-S1 TLIF w/Posterior Ximena Wayne MD Occupational Therapy Treatment Note M2 OT-IP Current Condition Start: 08/02/17 16:42 Freq: Status: Active Protocol: Document 08/02/17 11:54 PJM (Rec: 08/02/17 17:09 PJM [id number]) Occupational Therapy Current Condition Current Condition Evaluation Date 08/02/17 Treatment Diagnosis decreased self care/functional mobility s/p lumbar lami/ fusion w/Parkinsons Diagnosis Onset Date 08/01/17 Post Operative Precautions Lumbar Precautions Log Roll No Twisting Limit Bending Lifting Restriction of 10 lbs Gait Belt above Incisional Area M3 OT- IP Subjective and Pain Start: 08/02/17 16:42 Freq: Status: Active Protocol: Document 08/03/17 10:55 PJM (Rec: 08/03/17 11:28 PJM [id number]) OT- Subjective Occupational Therapy Visit Type Type Treatment Note Visit Start Time 10:15 Visit Stop Time 10:55 Total Visit Minutes 40 Notes observing and participating in this session. Occupational Therapy Visit Comments Patient Comments I feel pretty good today. Patient/Caregiver Goals to go home OT Pain Assessment Pain When Pain Assessed After Treatment Pain Present Pain Present Pain Reported Location BACK Intensity 2 Scale Used Numeric (1 - 10) Description Aching M4 OT- IP ADL's Start: 08/02/17 16:42 Freq: Status: Active Protocol: Document 08/03/17 10:55 PJM (Rec: 08/03/17 11:28 PJM [id number]) OT ADL-Grooming General Evaluation Grooming Ability Contact Guard Assistance Areas Needing Assistance Retrieving/Set-up of Grooming Items Face Washing Shaving Comments OT Grooming Comments Pt min assist by for thoroughness for shaving with hand razor seated. Pt lacks sufficient standing tolerance for standing at the sink for this task. plans to use 4WW or stool for pt to sit at sink at home PRN. OT ADL-Oral Care General Eval Oral Care Ability Contact Guard Assistance Devices Oral Care Devices Toothbrush Comments Oral Care Comments Pt stood at sink 2 min for oral care, with no loss of balance, but fatigues easily. Provided education re: energy conservation/pacing at home. M5 OT- IP IADL's Start: 08/02/17 16:42 Freq: Status: Active Protocol: Document 08/02/17 11:54 PJM (Rec: 08/02/17 17:09 PJM [id number]) OT-Instrumental Activities of Daily Living Deficits IADL Deficits Identified Deficits Home Safety Awareness Awareness of Need for Assistance at Home Good Awareness Medication Management Medication Management Caregiver Provides Supervision Caregiver Administers Money Management Money Management Caregiver Provides Assistance Meal Preparation Meal Preparation Caregiver Provides Assist Hospitality Associate Hospitality Associate Caregiver Provides Assist Driving Driving Concerns Identified Regarding Safety Driving Comments Pt states he still drives but admits to difficulty with LE motor control. M6 OT- IP Functional Cognition Start: 08/02/17 16:42 Freq: Status: Active Protocol: Document 08/03/17 10:55 PJM (Rec: 08/03/17 11:28 PJM [id number]) Cognitive Factors Limiting Selfcare Function Cognitive Ability Level of Alertness Alert Attention Span Ability Capable of Focused Attention Capable of Sustained Attention Ability to Follow Commands Able to Follow One Step Commands Memory Description Short Term Impaired Safety Awareness Decreased Recall of Precautions Cognitive Comments Cognitive Assessment Comments Pt needs mod cues to recall lumbar spine precautions. Slow speed of processing noted. M7 OT- IP Mobility and Balance Start: 08/02/17 16:42 Freq: Status: Active Protocol: Document 08/03/17 10:55 PJM (Rec: 08/03/17 11:28 PJM [id number]) OT-Transfer Assessment Sit to and From Stand Sit to and from Stand Minimal Assistance 1 Person Assistance Transfers Transfer Ability Contact Guard Assistance 1 Person Assistance Technique Transfer Destination Bedside Commode Chair Transfer Technique Stand Step Pivot Devices Transfer Assistive Devices Gait Belt Front Wheeled Walker Comments Mobility Comments Pt performs slowly with mod cues for scooting forward and sit to stand and stand to sit technique. OT- Gait Assessment Gait Gait Assistance Required: Minimum Assistance Assistive Devices Assistive Device Gait Belt Front Wheeled Walker Comments Gait Ability Comments Pt CGA for gait except min assist on turns; moves slowly and deliberately, tends to have narrow base of support. OT- Balance Assessment Sitting Balance and Reactions Static Sitting Balance Ability Good Standing Balance and Reactions Static Standing Balance Ability Good Dynamic Standing Balance Ability Fair Comments Other Balance Tests/Deviations/Treatment with FWW; slight BLE tremor : noted with prolonged standing which is pt's baseline per ; tends to keep L knee slightly flexed M8 OT- IP Objective Assessments Start: 08/02/17 16:42 Freq: Status: Active Protocol: Document 08/02/17 11:54 PJM (Rec: 08/02/17 17:09 PJM [id number]) OT Gross Range of Motion Upper Extremity Range of Motion Assessment Left Impaired ROM Impairments R shoulder scaption limited to ~90 degrees, L shoulder scaption limited to about 45 degrees. Pt states he needs B shoulder surgery and will have L TSA when recovered from back surgery. Distal AROM WFL. OT Strength Upper Extremity Strength Assessment Left Impaired Shoulder 3/5 R, 3-/5 L Elbow WFL Wrist WFL Hand WFL OT- Coordination Assessment Comments Coordination Comments generally slowed motor movements, no tremors noted this session OT-Muscle Tone Assessment Comments Muscle Tone Comments pt has generalized stiffness from Parkinsons OT Sensation Assessment Comments Summary Comments Pt denies deficits in BUE's M9 OT- IP Assessment and Plan Start: 08/02/17 16:42 Freq: Status: Active Protocol: Document 08/03/17 10:55 PJM (Rec: 08/03/17 11:28 PJM [id number]) OT Summary Assessment and Plan Potential Rehabilitation Potential Good Summary OT Impairments Pain Strength Balance Coordination Functional Cognition Functional Mobility Grooming Dressing Toileting Bathing Toilet Transfers Shower Transfers Progress Towards Goals Progressing Toward Goals Assessment Summary Pt making good daily progress in functional mobility and able to participate in standing self care tasks at sink today. He still needs mod cues for sequencing mobility and to recall/follow lumbar spine precautions. Attentive does excellent job setter honing pt. Pt and would prefer home discharge if pt continues to improve. This may require an extra day or two here to ensure safety and pt would benefit from HH PT/OT at discharge. Goals Grooming Goal Standby Assistance Dressing Goal Minimal Assistance Toileting Goal Standby Assistance Bathing Goal Minimal Assistance Toilet Transfer Goal Standby Assistance Shower Transfer Goal Standby Assistance Patient/Caregiver Education Goal Demonstrate Post-Op Precautions Demonstrate Energy Conservation and Pacing Caregiver Independent Assisting Patient Days to Meet Goals 4 Frequency of Treatment Frequency Of Treatment Once a Day Treatment Plan OT Treatment Plan ADL Training Functional Mobility Patient/Family Education Discharge Planning Discharge Recommendations OT Discharge Recommendations Home with 28/08 Assist Home Health Other Discharge Recommendations if pt continues to progress
[2017-08-03 12:41] VITALS: BP 133/69; PULSE 74; RESP 16; TEMP 36.7; O2SAT 95
--- NOTE | 2017-08-03 15:25 | PC.NURSE ---
PER ABIGAIL IN LAB PT DOES NOT NEED TO BE ON CONTACT ISOLATION FOR STAPH SPECIES GROWING IN URINE CULTURE.
[2017-08-03 15:31] VITALS: BP 130/73; PULSE 70; RESP 16; TEMP 37.4; O2SAT 94
--- NOTE | 2017-08-03 16:35 | PT.IPTN ---
Current Diagnoses Spondylolisthesis, lumbar region (08/01/17) Other spondylosis with radiculopathy, lumbar region (08/01/17) Spinal stenosis, lumbar region without neurogenic claudication (08/01/17) Surgery Performed Operation Date: 08/01/17 07:45 Actual Procedures p L3-4,L4-5,L5-S1 TLIF w/Posterior Ximena Wayne MD Physical Therapy Treatment Note M2 PT-IP Current Condition Start: 08/02/17 12:19 Freq: NEEDED Status: Active Protocol: Document 08/02/17 09:10 AB (Rec: 08/02/17 12:46 AB [id number]) Physical Therapy Current Condition Current Condition Evaluation Date 08/02/17 Treatment Diagnosis s/p TLIF Onset Date 08/01/17 Precautions Lumbar Precautions Log Roll No Twisting Limit Bending Lifting Restriction of 10 lbs Gait Belt above Incisional Area M3 PT-IP Subjective Start: 08/02/17 12:19 Freq: NEEDED Status: Active Protocol: Document 08/03/17 16:30 GGD (Rec: 08/03/17 16:35 GGD [id number]) Subjective Physical Therapy Visit Type Type Treatment Note Visit Start Time 15:55 Visit Stop Time 16:30 Total Visit Minutes 35 Number of FEED WEIGHER Visits 3 Physical Therapy Visit Comments Patient Comments Pt states he needs to move. Therapy Pain Assessment Pain When Pain Assessed At Rest Pain Present Pain Present Pain Reported Location BACK Intensity 3 Pain Management Techniques Modification of Treatment Re-positioning Timing of Activity with Medications M4 PT-IP Mobility and Gait Start: 08/02/17 12:19 Freq: NEEDED Status: Active Protocol: Document 08/03/17 16:30 GGD (Rec: 08/03/17 16:35 GGD [id number]) PT-Bed Mobility Assessment Rolling Type of Rolling Log Rolling Roll to Left Level of Assist Moderate Assistance Sit to Supine Sit to Supine Moderate Assistance 1 Person Assistance Bedrails Scooting Scooting to Edge of Bed Moderate Assistance PT-Transfer Assessment Sit to and From Stand Sit to and from Stand Moderate Assistance 1 Person Assistance Use of Upper Extremities Equipment Transfer Assistive Device Gait Belt Front Wheeled Walker Transfers Transfer Destination Chair Gait Assessment Gait Gait Assistance Required: Minimum Assistance 1 Person Assist Distance (Feet) (feet) 20 Assistive Devices Assistive Device Gait Belt Front Wheeled Walker Gait Deviations General Gait Pattern Antalgic Decreased Stride Length Decreased Feet Clearance Step-to Gait Factors Limiting Gait Function Factors Limiting Gait Function Abnormal Tonal Influences Decreased Activity Tolerance Decreased Strength Difficulty Following Directions Pain Poor Balance Poor Safety Awareness M5 PT-IP Objective Assessments Start: 08/02/17 12:19 Freq: NEEDED Status: Active Protocol: Document 08/02/17 09:10 AB (Rec: 08/02/17 12:46 AB [id number]) Orientation Orientation/Cognition Level of Alertness Alert Orientation Name Place Situation Safety Awareness Decreased Safety Awareness Strength Lower Extremity Strength Assessment Bilaterally Impaired Hip 4-/5 Knee 3+/5 Muscle Tone Comments Muscle Tone Comments (+) LLE resting tremor M6 PT-IP Treatment Start: 08/02/17 12:19 Freq: NEEDED Status: Active Protocol: Document 08/03/17 16:30 GGD (Rec: 08/03/17 16:35 GGD [id number]) Physical Therapy Treatment Education Education Provided Precautions Other Treatments Other Treatment Performed Standing marches in FWW. M7 PT-IP Assessment and Plan Start: 08/02/17 12:19 Freq: NEEDED Status: Active Protocol: Document 08/03/17 16:30 GGD (Rec: 08/03/17 16:35 GGD [id number]) PT Summary Assessment and Plan Summary Assessment Summary Pt was fatigued and need slight increase in assistance. He had improved controlled with sit. He did have knee bend with gait and needed increase in UE support. Frequency of Treatment Frequency Of Treatment Twice a Day Treatment Plan Physical Therapy Treatment Plan Bed Mobility Training Transfer Training Gait Training Therapeutic Exercise Balance Retraining Post Op Education Discharge Planning Hot or Cold Pack Neuromuscular Re-ed Coordination Retraining Manual Therapy Other Recommendations and Next Treatment transfers, ambulation, single Focus step if D/C home. Recommendations To Nursing Amount of Assist Needed 2 Person Assist Discharge Recommendations PT Discharge Recommendations SNF Rehab Equipment Needed for Home Before may need FWW if pt is going Discharge home
[2017-08-03 20:16] VITALS: BP 149/80; PULSE 75; RESP 18; TEMP 37.3; O2SAT 93
[2017-08-03] MEDS: TAMSULOSIN 0.4 MG CAPSULE PO (20:18)
[2017-08-03] MEDS: CIPROFLOXACIN 250 MG TABLET PO (20:18)
[2017-08-03] MEDS: SENNOSIDES 8.6 MG TABLET 17.2 MG PO (20:18)
[2017-08-03] MEDS: LOSARTAN 50 MG TABLET PO (20:18)
[2017-08-03] MEDS: MAGNESIUM HYDROXIDE 30 ML UDC PO (20:24)
--- NOTE | 2017-08-03 21:32 | PC.NURSE ---
SHIFT NOTE pt without any BM for 3 days. gieven prune juice and butter concoction with pt able to pass a lot of gas but no BM. encouraged pt to take PRN MOM which pt agreeable to. pt also educated on availability of PRN suppository.
[2017-08-04 00:13] VITALS: BP 128/72; PULSE 69; RESP 18; TEMP 36.8; O2SAT 93
[2017-08-04] MEDS: OXYCODONE IR 5 MG TABLET 10 MG PO ×7 (00:36→22:32)
[2017-08-04 05:29] VITALS: BP 110/45; PULSE 58; RESP 18; TEMP 36.8; O2SAT 93
[2017-08-04] MEDS: ACETAMINOPHEN 325 MG TABLET 650 MG PO ×3 (05:34→17:58)
[2017-08-04] MEDS: CIPROFLOXACIN 250 MG TABLET PO (06:54)
[2017-08-04 07:55] VITALS: BP 114/56; PULSE 63; RESP 16; TEMP 36.7; O2SAT 93
[2017-08-04] MEDS: BISACODYL 10 MG SUPP PR (09:42)
[2017-08-04] MEDS: DOCUSATE 100 MG CAPSULE PO ×2 (10:07→20:41)
[2017-08-04] MEDS: SODIUM CHLORIDE 0.9% FLUSH 10 ML IV ×2 (10:08→20:40)
--- NOTE | 2017-08-04 10:11 | CM.DPC ---
Per PT notes, SNF is being recommended. Call to [facility] and initiated SNF authorization. Clinicals and PT notes faxed.
--- NOTE | 2017-08-04 10:45 | PT.IPTN ---
Current Diagnoses Spondylolisthesis, lumbar region (08/01/17) Other spondylosis with radiculopathy, lumbar region (08/01/17) Spinal stenosis, lumbar region without neurogenic claudication (08/01/17) Surgery Performed Operation Date: 08/01/17 07:45 Actual Procedures p L3-4,L4-5,L5-S1 TLIF w/Posterior Ximena Wayne MD Physical Therapy Treatment Note M2 PT-IP Current Condition Start: 08/02/17 12:19 Freq: NEEDED Status: Active Protocol: Document 08/02/17 09:10 AB (Rec: 08/02/17 12:46 AB [id number]) Physical Therapy Current Condition Current Condition Evaluation Date 08/02/17 Treatment Diagnosis s/p TLIF Onset Date 08/01/17 Precautions Lumbar Precautions Log Roll No Twisting Limit Bending Lifting Restriction of 10 lbs Gait Belt above Incisional Area M3 PT-IP Subjective Start: 08/02/17 12:19 Freq: NEEDED Status: Active Protocol: Document 08/04/17 10:45 GGD (Rec: 08/04/17 12:32 GGD [email or web address]) Subjective Physical Therapy Visit Type Type Treatment Note Visit Start Time 10:10 Visit Stop Time 10:45 Total Visit Minutes 35 Number of MARSHMALLOW MACHINE WORKER Visits 4 Physical Therapy Visit Comments Patient Comments Pt states he needs to use the bathroom. Therapy Pain Assessment Pain When Pain Assessed At Rest Pain Present Pain Present Pain Reported Location BACK Intensity 2 M4 PT-IP Mobility and Gait Start: 08/02/17 12:19 Freq: NEEDED Status: Active Protocol: Document 08/04/17 10:45 GGD (Rec: 08/04/17 12:32 GGD [id number]) PT-Bed Mobility Assessment Rolling Type of Rolling Log Rolling Roll to Left Level of Assist Minimal Assistance Supine to Sit Supine to Sit Moderate Assistance 1 Person Assistance Bedrails Scooting Scooting to Edge of Bed Minimal Assistance PT-Transfer Assessment Sit to and From Stand Sit to and from Stand Maximum Assistance 1 Person Assistance Use of Upper Extremities Equipment Transfer Assistive Device Gait Belt Front Wheeled Walker Transfers Transfer Destination Chair Toilet Gait Assessment Gait Gait Assistance Required: Minimum Assistance 1 Person Assist Distance (Feet) (feet) 50 Assistive Devices Assistive Device Gait Belt Front Wheeled Walker Gait Deviations General Gait Pattern Antalgic Decreased Stride Length Decreased Feet Clearance Step-to Gait Factors Limiting Gait Function Factors Limiting Gait Function Abnormal Tonal Influences Decreased Activity Tolerance Decreased Strength Difficulty Following Directions Pain Poor Balance Poor Safety Awareness M5 PT-IP Objective Assessments Start: 08/02/17 12:19 Freq: NEEDED Status: Active Protocol: Document 08/02/17 09:10 AB (Rec: 08/02/17 12:46 AB [id number]) Orientation Orientation/Cognition Level of Alertness Alert Orientation Name Place Situation Safety Awareness Decreased Safety Awareness Strength Lower Extremity Strength Assessment Bilaterally Impaired Hip 4-/5 Knee 3+/5 Muscle Tone Comments Muscle Tone Comments (+) LLE resting tremor M6 PT-IP Treatment Start: 08/02/17 12:19 Freq: NEEDED Status: Active Protocol: Document 08/04/17 10:45 GGD (Rec: 08/04/17 12:32 GGD [id number]) Physical Therapy Treatment Education Education Provided Precautions M7 PT-IP Assessment and Plan Start: 08/02/17 12:19 Freq: NEEDED Status: Active Protocol: Document 08/04/17 10:45 GGD (Rec: 08/04/17 12:32 GGD [email or web address]) PT Summary Assessment and Plan Summary Assessment Summary Pt improved with mobility. He was able to progress gait and need less assist with sit to stand. He needs mod cues. Frequency of Treatment Frequency Of Treatment Twice a Day Treatment Plan Other Recommendations and Next Treatment transfers, ambulation, single Focus step if D/C home. Recommendations To Nursing Amount of Assist Needed 2 Person Assist Discharge Recommendations PT Discharge Recommendations SNF Rehab Equipment Needed for Home Before may need FWW if pt is going Discharge home
[2017-08-04 12:00] VITALS: BP 123/69; PULSE 63; RESP 16; TEMP 37.1; O2SAT 97
--- NOTE | 2017-08-04 12:04 | P.PN_ITS ---
Subjective Date Patient Seen: 08/04/17 Time Patient Seen: 11:58 Interval history: Hospital day 4, postop day 3 following L3-4 through L5-S1 TLIF , cage, posterior screw fixation by Dr. Wayne. Patient has progressed slowly postoperatively because of his Parkinson's. Has required 2 person assist. Still had Berger catheter in this morning. Has not had a bowel movement for the last few days. There had been discussion about discharge to SNF versus home. Patient and his would like to have him go home. I did have Berger catheter removed this morning and patient has been able to void. Has been using oxycodone for pain. He states his preoperative leg symptoms have resolved. Exam Vital Signs (past 8 hours): - 08/04/17 05:29 08/04/17 07:55 Temperature 98.2 F 98.1 F Pulse Rate 58 L 63 Respiratory Rate 18 16 Blood Pressure 110/45 L 114/56 L Pulse Oximetry 93 93 Fraction of Inspired Oxygen 28 Oxygen Delivery Method Room Air,CPAP Oxygen Flow Rate 0 Narrative Exam Narrative: Alert, oriented no acute distress resting in bed. Back. Dressing to the lumbar area is dry without drainage or inflammation. Legs. No calf pain or swelling. Pulses symmetrical. Good sensation to touch to the lower legs. Good strength on foot dorsiflexion plantar flexion. Objective Labs Result Diagrams: 08/02/17 06:25 Assessment & Plan Post-op Postoperative Procedures Operation Date: 08/01/17 07:45 Actual Procedures Side Surgeon p L3-4,L4-5,L5-S1 TLIF w/Posterior Instru Sabina Wayne MD plan; patient will work with physical therapy more today. Observe for improvement in pain and function. Anticipate possible discharge to home tomorrow if he is stable and improved. He will need front wheeled walker for home. Anticipate discharge to SNF if not improving. Time Spent With Patient less than 15 minutes
--- NOTE | 2017-08-04 15:46 | OT.IP.TRT ---
Current Diagnoses Spondylolisthesis, lumbar region (08/01/17) Other spondylosis with radiculopathy, lumbar region (08/01/17) Spinal stenosis, lumbar region without neurogenic claudication (08/01/17) Surgery Performed Operation Date: 08/01/17 07:45 Actual Procedures p L3-4,L4-5,L5-S1 TLIF w/Posterior Ximena Wayne MD Occupational Therapy Treatment Note M2 OT-IP Current Condition Start: 08/02/17 16:42 Freq: Status: Active Protocol: Document 08/02/17 11:54 [facility] (Rec: 08/02/17 17:09 [facility] [email or web address]) Occupational Therapy Current Condition Current Condition Evaluation Date 08/02/17 Treatment Diagnosis decreased self care/functional mobility s/p lumbar lami/ fusion w/Parkinsons Diagnosis Onset Date 08/01/17 Post Operative Precautions Lumbar Precautions Log Roll No Twisting Limit Bending Lifting Restriction of 10 lbs Gait Belt above Incisional Area M3 OT- IP Subjective and Pain Start: 08/02/17 16:42 Freq: Status: Active Protocol: Document 08/04/17 15:31 [facility] (Rec: 08/04/17 15:46 [facility] [email or web address]) OT- Subjective Occupational Therapy Visit Type Type Treatment Note Visit Start Time 14:35 Visit Stop Time 15:15 Total Visit Minutes 40 Occupational Therapy Visit Comments Patient/Caregiver Goals Pt's present for family training for showering and bed mobility. OT Pain Assessment Pain When Pain Assessed At Rest Pain Present Pain Present Denied Pain M4 OT- IP ADL's Start: 08/02/17 16:42 Freq: Status: Active Protocol: Document 08/04/17 15:31 [facility] (Rec: 08/04/17 15:46 [facility] [email or web address]) OT ADL-Grooming General Evaluation Grooming Ability Minimal Assistance Areas Needing Assistance Retrieving/Set-up of Grooming Items Combing/Brushing Hair Comments OT Grooming Comments Pt assist with throughness of combing his hair. OT ADL-Dressing General Eval Lower Body Dressing Ability Total Assistance OT ADL-Toileting General Evaluation Toileting Ability Maximum Assistance Comments OT Toileting Comments Pt's assisted to use urinal in the bed. OT ADL-Bathing Bathing Type Bathing Type Shower General Evaluation Bathing Ability Maximal Assistance Areas Needing Assistance Retrieving/Setting Up Items Wash/Dry Upper Body Wash/Dry Back Wash/Dry Perineal Area Wash/Dry Lower Extremities Devices Bathing Equipment Hand Held Shower Sprayer Shower Chair with Arms Grab Bars Comments OT Bathing Comments Pt needing to assist for most of showering needs, MAX A . Pt needing heavy use of grab bar to stand for pericare needs. VC for to have items close by and set-up prior to the shower. M5 OT- IP IADL's Start: 08/02/17 16:42 Freq: Status: Active Protocol: Document 08/02/17 11:54 [facility] (Rec: 08/02/17 17:09 [facility] [email or web address]) OT-Instrumental Activities of Daily Living Deficits IADL Deficits Identified Deficits Home Safety Awareness Awareness of Need for Assistance at Home Good Awareness Medication Management Medication Management Caregiver Provides Supervision Caregiver Administers Money Management Money Management Caregiver Provides Assistance Meal Preparation Meal Preparation Caregiver Provides Assist Day Care Home Provider Day Care Home Provider Caregiver Provides Assist Driving Driving Concerns Identified Regarding Safety Driving Comments Pt states he still drives but admits to difficulty with LE motor control. M6 OT- IP Functional Cognition Start: 08/02/17 16:42 Freq: Status: Active Protocol: Document 08/04/17 15:31 [facility] (Rec: 08/04/17 15:46 [facility] [email or web address]) Cognitive Factors Limiting Selfcare Function Cognitive Ability Level of Alertness Alert Attention Span Ability Capable of Focused Attention Capable of Sustained Attention Ability to Follow Commands Able to Follow One Step Commands Memory Description Short Term Impaired Safety Awareness Decreased Recall of Precautions OT- Vision and Hearing OT- Hearing Assessment OT- Hearing Assessment WFL OT- Vision Assessment Visual Acuity WFL M7 OT- IP Mobility and Balance Start: 08/02/17 16:42 Freq: Status: Active Protocol: Document 08/04/17 15:31 [facility] (Rec: 08/04/17 15:46 [facility] [email or web address]) OT- Bed Mobility Assessment Sit to Supine Sit to Supine Assist Maximum Assistance 1 Person Assistance OT-Transfer Assessment Sit to and From Stand Sit to and from Stand Maximum Assistance 1 Person Assistance Transfers Transfer Ability Minimal Assistance 1 Person Assistance Technique Transfer Destination Chair Shower Stall Transfer Technique Stand Step Pivot Devices Transfer Assistive Devices Gait Belt Front Wheeled Walker Comments Mobility Comments Pt needing MAX A to stand from lower chair, however when coming up for higher surfaces JERI. Pt needs cue to scoot forwards prior to pushing up to stand. OT- Gait Assessment Gait Gait Assistance Required: Standby Assistance Minimum Assistance Assistive Devices Assistive Device Gait Belt Front Wheeled Walker Comments Gait Ability Comments Pt needing JERI to help guide FWW during turns, vc to step clser to the FWW, and JERI to step over thresholds. OT- Balance Assessment Sitting Balance and Reactions Static Sitting Balance Ability Good Standing Balance and Reactions Dynamic Standing Balance Ability Fair M8 OT- IP Objective Assessments Start: 08/02/17 16:42 Freq: Status: Active Protocol: Document 08/02/17 11:54 [facility] (Rec: 08/02/17 17:09 [facility] [email or web address]) OT Gross Range of Motion Upper Extremity Range of Motion Assessment Left Impaired ROM Impairments R shoulder scaption limited to ~90 degrees, L shsoulder scaption limited to about 45 degrees. Pt states he needs B shoulder surgery and will have L TSA when recovered from back surgery. Distal AROM WFL. OT Strength Upper Extremity Strength Assessment Left Impaired Shoulder 3/5 R, 3-/5 L Elbow WFL Wrist WFL Hand WFL OT- Coordination Assessment Comments Coordination Comments generally slowed motor movements, no tremors noted this session OT-Muscle Tone Assessment Comments Muscle Tone Comments pt has genralized stiffness from Parkinsons OT Sensation Assessment Comments Summary Comments Pt denies deficits in BUE's M9 OT- IP Assessment and Plan Start: 08/02/17 16:42 Freq: Status: Active Protocol: Document 08/04/17 15:31 [facility] (Rec: 08/04/17 15:46 [facility] [email or web address]) OT Summary Assessment and Plan Potential Rehabilitation Potential Good Summary OT Impairments Pain Strength Balance Coordination Functional Cognition Functional Mobility Grooming Dressing Toileting Bathing Toilet Transfers Shower Transfers Assessment Summary Pt doing better with mobility and able to assist more for Adl needs. participating in caregiver training and doing well and able to show good auto body mechanic and support for pt. Pt would benefit from short skilled rehab as pt tends to fluctuate with needs for assistance throughout the day. Goals Grooming Goal Standby Assistance Dressing Goal Minimal Assistance Toileting Goal Standby Assistance Bathing Goal Minimal Assistance Toilet Transfer Goal Standby Assistance Shower Transfer Goal Standby Assistance Patient/Caregiver Education Goal Demonstrate Post-Op Precautions Demonstrate Energy Conservation and Pacing Caregiver Independent Assisting Patient Days to Meet Goals 3 Frequency of Treatment Frequency Of Treatment Once a Day Treatment Plan OT Treatment Plan ADL Training Functional Mobility Patient/Family Education Discharge Planning Other Treatment Recommendations and Next Family training with . Treatment Focus Discharge Recommendations OT Discharge Recommendations Home with 24/7 Assist Home Health SNF Rehab
--- NOTE | 2017-08-04 16:20 | PT.IPTN ---
Current Diagnoses Spondylolisthesis, lumbar region (08/01/17) Other spondylosis with radiculopathy, lumbar region (08/01/17) Spinal stenosis, lumbar region without neurogenic claudication (08/01/17) Surgery Performed Operation Date: 08/01/17 07:45 Actual Procedures p L3-4,L4-5,L5-S1 TLIF w/Posterior Ximena Wayne MD Physical Therapy Treatment Note M2 PT-IP Current Condition Start: 08/02/17 12:19 Freq: NEEDED Status: Active Protocol: Document 08/02/17 09:10 [facility] (Rec: 08/02/17 12:46 [facility] [id number]) Physical Therapy Current Condition Current Condition Evaluation Date 08/02/17 Treatment Diagnosis s/p TLIF Onset Date 08/01/17 Precautions Lumbar Precautions Log Roll No Twisting Limit Bending Lifting Restriction of 10 lbs Gait Belt above Incisional Area M3 PT-IP Subjective Start: 08/02/17 12:19 Freq: NEEDED Status: Active Protocol: Document 08/04/17 16:20 [facility] (Rec: 08/04/17 17:41 [facility] [email or web address]) Subjective Physical Therapy Visit Type Type Treatment Note Visit Start Time 15:25 Visit Stop Time 16:20 Total Visit Minutes 50 Number of GROUP ACCOUNT DIRECTOR Visits 5 Physical Therapy Visit Comments Patient Comments Pt states he is feeling better . Therapy Pain Assessment Pain When Pain Assessed At Rest Pain Present Pain Present Pain Reported M4 PT-IP Mobility and Gait Start: 08/02/17 12:19 Freq: NEEDED Status: Active Protocol: Document 08/04/17 16:20 [facility] (Rec: 08/04/17 17:41 [facility] [email or web address]) PT-Bed Mobility Assessment Rolling Type of Rolling Log Rolling Roll to Left Level of Assist Minimal Assistance Supine to Sit Supine to Sit Minimal Assistance 1 Person Assistance Bedrails Scooting Scooting to Edge of Bed Minimal Assistance PT-Transfer Assessment Sit to and From Stand Sit to and from Stand Maximum Assistance 1 Person Assistance Use of Upper Extremities Equipment Transfer Assistive Device Gait Belt Front Wheeled Walker Transfers Transfer Destination Chair Toilet Gait Assessment Gait Gait Assistance Required: Contact Guard Assist Distance (Feet) (feet) 50 Assistive Devices Assistive Device Gait Belt Front Wheeled Walker Gait Deviations General Gait Pattern Antalgic Decreased Stride Length Decreased Feet Clearance Step-to Gait Factors Limiting Gait Function Factors Limiting Gait Function Abnormal Tonal Influences Decreased Activity Tolerance Decreased Strength Difficulty Following Directions Pain Poor Balance Poor Safety Awareness Stair Climbing Assessment Evaluation Level of Assist On Stairs Contact Guard Assistance Devices Stair Climbing Assistive Devices Front Wheel Walker Technique/Endurance Stair Climbing Direction Ascend and Descend Stair Climbing Technique Step to Step Number of Steps Climbed 1 Query Text: Stair Climbing Set # Repetitions (reps) 1 Comments Stair Climbing Comments Pt need mod cues for stair. M5 PT-IP Objective Assessments Start: 08/02/17 12:19 Freq: NEEDED Status: Active Protocol: Document 08/02/17 09:10 [facility] (Rec: 08/02/17 12:46 [facility] [id number]) Orientation Orientation/Cognition Level of Alertness Alert Orientation Name Place Situation Safety Awareness Decreased Safety Awareness Strength Lower Extremity Strength Assessment Bilaterally Impaired Hip 4-/5 Knee 3+/5 Muscle Tone Comments Muscle Tone Comments (+) LLE resting tremor M6 PT-IP Treatment Start: 08/02/17 12:19 Freq: NEEDED Status: Active Protocol: Document 08/04/17 16:20 [facility] (Rec: 08/04/17 17:41 [facility] [email or web address]) Physical Therapy Treatment Education Education Provided Precautions M7 PT-IP Assessment and Plan Start: 08/02/17 12:19 Freq: NEEDED Status: Active Protocol: Document 08/04/17 16:20 [facility] (Rec: 08/04/17 17:41 [facility] [email or web address]) PT Summary Assessment and Plan Summary Assessment Summary PT improving with mobility. He needs mod cues for scooting to edge and sit to stand technique. He improving with standing from lower surface alicia. Frequency of Treatment Frequency Of Treatment Twice a Day Treatment Plan Other Recommendations and Next Treatment transfers, ambulation, single Focus step if D/C home. Recommendations To Nursing Amount of Assist Needed 1 Person Assist Discharge Recommendations PT Discharge Recommendations Home with Assistance Home Health SNF Rehab Equipment Needed for Home Before may need FWW if pt is going Discharge home
[2017-08-04 16:33] VITALS: BP 125/57; PULSE 69; RESP 16; TEMP 37; O2SAT 94
[2017-08-04 19:43] VITALS: BP 130/66; PULSE 67; RESP 17; TEMP 36.6; O2SAT 94
[2017-08-04] MEDS: LOSARTAN 50 MG TABLET PO (20:40)
[2017-08-04] MEDS: TAMSULOSIN 0.4 MG CAPSULE PO (20:40)
[2017-08-04] MEDS: DOXYCYCLINE HYCLATE 100 MG TABLET PO (20:41)
[2017-08-05] VITALS: BP 130/75; PULSE 63; RESP 17; TEMP 37.2; O2SAT 94
[2017-08-05] MEDS: ACETAMINOPHEN 325 MG TABLET 650 MG PO ×4 (01:37→18:09)
[2017-08-05] MEDS: OXYCODONE IR 5 MG TABLET 10 MG PO ×8 (01:38→21:44)
[2017-08-05 04:41] VITALS: BP 121/70; PULSE 67; RESP 17; TEMP 36.8; O2SAT 94
[2017-08-05 08:20] VITALS: BP 117/68; PULSE 61; RESP 16; TEMP 36.6; O2SAT 93
[2017-08-05] MEDS: DOXYCYCLINE HYCLATE 100 MG TABLET PO ×2 (10:00→21:42)
[2017-08-05] MEDS: DOCUSATE 100 MG CAPSULE PO ×2 (10:00→21:42)
[2017-08-05 11:00] VITALS: BP 133/87; PULSE 65; RESP 16; TEMP 36.7; O2SAT 98
--- NOTE | 2017-08-05 11:13 | CM.DPC ---
Spoke with Geetha at [facility] today and patient is approved for SNF. Spoke with patient and his and they would prefer to d/c home tomorrow. PT notes indicate that patient progress is sufficient that this may be a safe plan. They indicate that they discussed this with the ortho PA yesterday. Will wait for provider to round today to confirm this plan before calling [facility] to inform. Plan: Home with tomorrow is the tentative plan.
--- NOTE | 2017-08-05 11:50 | PT.IPTN ---
Current Diagnoses Spondylolisthesis, lumbar region (08/01/17) Other spondylosis with radiculopathy, lumbar region (08/01/17) Spinal stenosis, lumbar region without neurogenic claudication (08/01/17) Surgery Performed Operation Date: 08/01/17 07:45 Actual Procedures p L3-4,L4-5,L5-S1 TLIF w/Posterior Ximena Wayne MD Physical Therapy Treatment Note M2 PT-IP Current Condition Start: 08/02/17 12:19 Freq: NEEDED Status: Active Protocol: Document 08/05/17 11:50 [facility] (Rec: 08/05/17 12:32 [facility] [email or web address]) Physical Therapy Current Condition Current Condition Evaluation Date 08/02/17 Treatment Diagnosis s/p TLIF Onset Date 08/01/17 Precautions Lumbar Precautions Log Roll No Twisting Limit Bending Lifting Restriction of 10 lbs Gait Belt above Incisional Area M3 PT-IP Subjective Start: 08/02/17 12:19 Freq: NEEDED Status: Active Protocol: Document 08/05/17 11:50 [facility] (Rec: 08/05/17 12:32 [facility] [email or web address]) Subjective Physical Therapy Visit Type Type Treatment Note Visit Start Time 11:35 Visit Stop Time 11:50 Total Visit Minutes 15 Number of CLEANER AND PRESSER Visits 0 Physical Therapy Visit Comments Patient Comments Pt notes pain is 2/10. Therapy Pain Assessment Pain When Pain Assessed At Rest Pain Present Pain Present Pain Reported Location BACK Intensity 2 Scale Used Numeric (1 - 10) M4 PT-IP Mobility and Gait Start: 08/02/17 12:19 Freq: NEEDED Status: Active Protocol: Document 08/05/17 11:50 [facility] (Rec: 08/05/17 12:32 [facility] [email or web address]) PT-Transfer Assessment Sit to and From Stand Sit to and from Stand Standby Assistance Use of Upper Extremities Equipment Transfer Assistive Device Gait Belt Front Wheeled Walker Transfers Transfer Destination Chair Transfer Technique Stand Step Pivot Transfer Ability Level of Assist Standby Assistance Use of Upper Extremities Gait Assessment Gait Gait Assistance Required: Standby Assistance Distance (Feet) (feet) 120 Assistive Devices Assistive Device Gait Belt Front Wheeled Walker Gait Deviations General Gait Pattern Decreased Feet Clearance Factors Limiting Gait Function Factors Limiting Gait Function Decreased Strength Pain Comments Gait Comments no loss of balance noted. Slow paced gait. Stair Climbing Assessment Evaluation Level of Assist On Stairs Contact Guard Assistance Devices Stair Climbing Assistive Devices Front Wheel Walker Technique/Endurance Stair Climbing Direction Ascend and Descend Number of Steps Climbed 1 Query Text: Stair Climbing Set # Repetitions (reps) 2 Comments Stair Climbing Comments 8 step up/down M5 PT-IP Objective Assessments Start: 08/02/17 12:19 Freq: NEEDED Status: Active Protocol: Document 08/02/17 09:10 [facility] (Rec: 08/02/17 12:46 [facility] [id number]) Orientation Orientation/Cognition Level of Alertness Alert Orientation Name Place Situation Safety Awareness Decreased Safety Awareness Strength Lower Extremity Strength Assessment Bilaterally Impaired Hip 4-/5 Knee 3+/5 Muscle Tone Comments Muscle Tone Comments (+) LLE resting tremor M6 PT-IP Treatment Start: 08/02/17 12:19 Freq: NEEDED Status: Active Protocol: Document 08/05/17 11:50 [facility] (Rec: 08/05/17 12:32 [facility] [email or web address]) Physical Therapy Treatment Education Education Provided Precautions Safety M7 PT-IP Assessment and Plan Start: 08/02/17 12:19 Freq: NEEDED Status: Active Protocol: Document 08/05/17 11:50 [facility] (Rec: 08/05/17 12:32 [facility] [email or web address]) PT Summary Assessment and Plan Summary Assessment Summary Pt with increased tolerance with ambulation, and is requiring less assistance to get up/down from a chair. Plan to continue to progress bed mobility, but pt likely will be able to d/c home when medically stable. Frequency of Treatment Frequency Of Treatment Twice a Day Treatment Plan Other Recommendations and Next Treatment bed mobility. Focus Recommendations To Nursing Amount of Assist Needed 1 Person Assist Discharge Recommendations PT Discharge Recommendations Home with Assistance
--- NOTE | 2017-08-05 12:59 | PM.PNPO.1 ---
Subjective Date Patient Seen: 08/05/17 Time Patient Seen: 10:59 Interval history: The patient is improving. He is much better than he was yesterday. He has been getting up some with standby assistance and has been getting to the bathroom. He is passing gas without difficulty he denies abdominal pain as back pain but it is better than it was yesterday. His pain is adequately controlled with pain pills. Exam Vital Signs (past 8 hours): - 08/05/17 08:20 08/05/17 11:00 Temperature 97.9 F 98.1 F Pulse Rate 61 65 Respiratory Rate 16 16 Blood Pressure 117/68 133/87 H Pulse Oximetry 93 98 Fraction of Inspired Oxygen 28 Oxygen Delivery Method Room Air,CPAP Oxygen Flow Rate 0 Narrative Exam Narrative: Ambulating in the [place] with standby assistance, dressing is dry and intact, calves are soft bilaterally neuro is normal motor strength in bilateral lower extremities. Abdomen soft and benign. Objective Labs Result Diagrams: 08/02/17 06:25 Assessment & Plan Post-op Postoperative Procedures Operation Date: 08/01/17 07:45 Actual Procedures Side Surgeon p L3-4,L4-5,L5-S1 TLIF w/Posterior Instru Sabina Wayne MD Postoperative status: doing well (Patient is doing well overall. He has mild pain on he notes that his strength is not back and he feels he needs additional support prior to discharge to home. I anticipate he can be discharged home tomorrow and will pursue outpatient physical therapy.) Postoperative plan: routine post-op care Time Spent With Patient less than 15 minutes
--- NOTE | 2017-08-05 15:45 | OT.IP.TRT ---
Current Diagnoses Spondylolisthesis, lumbar region (08/01/17) Other spondylosis with radiculopathy, lumbar region (08/01/17) Spinal stenosis, lumbar region without neurogenic claudication (08/01/17) Surgery Performed Operation Date: 08/01/17 07:45 Actual Procedures p L3-4,L4-5,L5-S1 TLIF w/Posterior Ximena Wayne MD Occupational Therapy Treatment Note M2 OT-IP Current Condition Start: 08/02/17 16:42 Freq: Status: Active Protocol: Document 08/02/17 11:54 PJM (Rec: 08/02/17 17:09 PJM [id number]) Occupational Therapy Current Condition Current Condition Evaluation Date 08/02/17 Treatment Diagnosis decreased self care/functional mobility s/p lumbar lami/ fusion w/Parkinsons Diagnosis Onset Date 08/01/17 Post Operative Precautions Lumbar Precautions Log Roll No Twisting Limit Bending Lifting Restriction of 10 lbs Gait Belt above Incisional Area M3 OT- IP Subjective and Pain Start: 08/02/17 16:42 Freq: Status: Active Protocol: Document 08/05/17 15:39 [facility] (Rec: 08/05/17 15:45 [facility] [id number]) OT- Subjective Occupational Therapy Visit Type Type Treatment Note Visit Start Time 14:50 Visit Stop Time 15:05 Total Visit Minutes 15 Occupational Therapy Visit Comments Patient/Caregiver Goals Pt and feeling more confident able going home instead of SNF. OT Pain Assessment Pain When Pain Assessed At Rest Pain Present Pain Present Denied Pain M4 OT- IP ADL's Start: 08/02/17 16:42 Freq: Status: Active Protocol: Document 08/04/17 15:31 [facility] (Rec: 08/04/17 15:46 [facility] [id number]) OT ADL-Grooming General Evaluation Grooming Ability Minimal Assistance Areas Needing Assistance Retrieving/Set-up of Grooming Items Combing/Brushing Hair Comments OT Grooming Comments Pt assist with throughness of combing his hair. OT ADL-Dressing General Eval Lower Body Dressing Ability Total Assistance OT ADL-Toileting General Evaluation Toileting Ability Maximum Assistance Comments OT Toileting Comments Pt's assisted to use urinal in the bed. OT ADL-Bathing Bathing Type Bathing Type Shower General Evaluation Bathing Ability Maximal Assistance Areas Needing Assistance Retrieving/Setting Up Items Wash/Dry Upper Body Wash/Dry Back Wash/Dry Perineal Area Wash/Dry Lower Extremities Devices Bathing Equipment Hand Held Shower Sprayer Shower Chair with Arms Grab Bars Comments OT Bathing Comments Pt needing to assist for most of showering needs, MAX A . Pt needing heavy use of grab bar to stand for pericare needs. VC for to have items close by and set-up prior to the shower. M5 OT- IP IADL's Start: 08/02/17 16:42 Freq: Status: Active Protocol: Document 08/02/17 11:54 [facility] (Rec: 08/02/17 17:09 [facility] [id number]) OT-Instrumental Activities of Daily Living Deficits IADL Deficits Identified Deficits Home Safety Awareness Awareness of Need for Assistance at Home Good Awareness Medication Management Medication Management Caregiver Provides Supervision Caregiver Administers Money Management Money Management Caregiver Provides Assistance Meal Preparation Meal Preparation Caregiver Provides Assist Superintendent General Superintendent General Caregiver Provides Assist Driving Driving Concerns Identified Regarding Safety Driving Comments Pt states he still drives but admits to difficulty with LE motor control. M6 OT- IP Functional Cognition Start: 08/02/17 16:42 Freq: Status: Active Protocol: Document 08/04/17 15:31 [facility] (Rec: 08/04/17 15:46 [facility] [id number]) Cognitive Factors Limiting Selfcare Function Cognitive Ability Level of Alertness Alert Attention Span Ability Capable of Focused Attention Capable of Sustained Attention Ability to Follow Commands Able to Follow One Step Commands Memory Description Short Term Impaired Safety Awareness Decreased Recall of Precautions OT- Vision and Hearing OT- Hearing Assessment OT- Hearing Assessment WFL OT- Vision Assessment Visual Acuity WFL M7 OT- IP Mobility and Balance Start: 08/02/17 16:42 Freq: Status: Active Protocol: Document 08/05/17 15:39 [facility] (Rec: 08/05/17 15:45 [facility] [id number]) OT- Bed Mobility Assessment Sit to Supine Sit to Supine Assist Maximum Assistance 1 Person Assistance OT-Transfer Assessment Sit to and From Stand Sit to and from Stand Minimal Assistance 1 Person Assistance Transfers Transfer Ability Minimal Assistance 1 Person Assistance Technique Transfer Destination Bed Chair Transfer Technique Stand Step Pivot Devices Transfer Assistive Devices Gait Belt Front Wheeled Walker Comments Mobility Comments Pt's able to show good understanding and safety for bed mobility and sit to stand with pt. OT- Gait Assessment Gait Gait Assistance Required: Contact Guard Assist Minimum Assistance Assistive Devices Assistive Device Gait Belt Front Wheeled Walker Comments Gait Ability Comments VC to stay close to FWW, JERI to guide FWW while doing turns . M8 OT- IP Objective Assessments Start: 08/02/17 16:42 Freq: Status: Active Protocol: Document 08/02/17 11:54 [facility] (Rec: 08/02/17 17:09 [facility] [id number]) OT Gross Range of Motion Upper Extremity Range of Motion Assessment Left Impaired ROM Impairments R shoulder scaption limited to ~90 degrees, L shsoulder scaption limited to about 45 degrees. Pt states he needs B shoulder surgery and will have L TSA when recovered from back surgery. Distal AROM WFL. OT Strength Upper Extremity Strength Assessment Left Impaired Shoulder 3/5 R, 3-/5 L Elbow WFL Wrist WFL Hand WFL OT- Coordination Assessment Comments Coordination Comments generally slowed motor movements, no tremors noted this session OT-Muscle Tone Assessment Comments Muscle Tone Comments pt has genralized stiffness from Parkinsons OT Sensation Assessment Comments Summary Comments Pt denies deficits in BUE's M9 OT- IP Assessment and Plan Start: 08/02/17 16:42 Freq: Status: Active Protocol: Document 08/05/17 15:39 [facility] (Rec: 08/05/17 15:45 [facility] [email or web address]) OT Summary Assessment and Plan Potential Rehabilitation Potential Good Summary OT Impairments Pain Strength Balance Coordination Functional Cognition Functional Mobility Grooming Dressing Toileting Bathing Toilet Transfers Shower Transfers Progress Towards Goals Progressing Toward Goals Assessment Summary Pt doing well and is safe to assist pt for all ADl needs . Pt looking to discharge tomorrow. Goals Patient/Caregiver Education Goal Demonstrate Post-Op Precautions Caregiver Independent Assisting Patient Days to Meet Goals 1 Frequency of Treatment Frequency Of Treatment Once a Day Treatment Plan OT Treatment Plan Patient/Family Education Discharge Planning Discharge Recommendations OT Discharge Recommendations Home with 28/08 Assist Home Health
[2017-08-05 16:04] VITALS: BP 115/60; PULSE 61; RESP 16; TEMP 37; O2SAT 92
--- NOTE | 2017-08-05 16:20 | PT.IPTN ---
Current Diagnoses Spondylolisthesis, lumbar region (08/01/17) Other spondylosis with radiculopathy, lumbar region (08/01/17) Spinal stenosis, lumbar region without neurogenic claudication (08/01/17) Surgery Performed Operation Date: 08/01/17 07:45 Actual Procedures p L3-4,L4-5,L5-S1 TLIF w/Posterior Ximena Wayne MD Physical Therapy Treatment Note M2 PT-IP Current Condition Start: 08/02/17 12:19 Freq: NEEDED Status: Active Protocol: Document 08/05/17 14:25 [facility] (Rec: 08/05/17 16:37 [facility] [id number]) Physical Therapy Current Condition Current Condition Evaluation Date 08/02/17 Treatment Diagnosis s/p TLIF Onset Date 08/01/17 Precautions Lumbar Precautions Log Roll No Twisting Limit Bending Lifting Restriction of 10 lbs Gait Belt above Incisional Area M3 PT-IP Subjective Start: 08/02/17 12:19 Freq: NEEDED Status: Active Protocol: Document 08/05/17 14:25 [facility] (Rec: 08/05/17 16:37 [facility] [id number]) Subjective Physical Therapy Visit Type Type Treatment Note Visit Start Time 16:00 Visit Stop Time 16:20 Total Visit Minutes 20 Number of DEXIGRAPH OPERATOR Visits 0 Physical Therapy Visit Comments Patient Comments Pt willing to mobilize. M4 PT-IP Mobility and Gait Start: 08/02/17 12:19 Freq: NEEDED Status: Active Protocol: Document 08/05/17 14:25 [facility] (Rec: 08/05/17 16:37 [facility] [id number]) PT-Bed Mobility Assessment Rolling Type of Rolling Log Rolling Roll to Left Level of Assist 1 Person Assistance Supine to Sit Supine to Sit 1 Person Assistance Scooting Scooting to Edge of Bed Minimal Assistance PT-Transfer Assessment Sit to and From Stand Sit to and from Stand 1 Person Assistance Use of Upper Extremities Equipment Transfer Assistive Device Front Wheeled Walker Transfers Transfer Destination Chair Transfer Technique Stand Step Pivot Transfer Ability Level of Assist Standby Assistance Comments Mobility Comments assisted with log roll supine to sit and sit to stand (PT supervision). Gait Assessment Gait Gait Assistance Required: Standby Assistance Distance (Feet) (feet) 150 Assistive Devices Assistive Device Gait Belt Front Wheeled Walker Gait Deviations General Gait Pattern Decreased Stride Length Decreased Feet Clearance Factors Limiting Gait Function Factors Limiting Gait Function Decreased Strength Poor Balance Comments Gait Comments Final 20 ft pt able to perform step-through pattern with VCs . M5 PT-IP Objective Assessments Start: 08/02/17 12:19 Freq: NEEDED Status: Active Protocol: Document 08/02/17 09:10 [facility] (Rec: 08/02/17 12:46 [facility] [id number]) Orientation Orientation/Cognition Level of Alertness Alert Orientation Name Place Situation Safety Awareness Decreased Safety Awareness Strength Lower Extremity Strength Assessment Bilaterally Impaired Hip 4-/5 Knee 3+/5 Muscle Tone Comments Muscle Tone Comments (+) LLE resting tremor M6 PT-IP Treatment Start: 08/02/17 12:19 Freq: NEEDED Status: Active Protocol: Document 08/05/17 14:25 [facility] (Rec: 08/05/17 16:37 [facility] [id number]) Physical Therapy Treatment Education Education Provided Safety M7 PT-IP Assessment and Plan Start: 08/02/17 12:19 Freq: NEEDED Status: Active Protocol: Document 08/05/17 14:25 [facility] (Rec: 08/05/17 16:37 [facility] [id number]) PT Summary Assessment and Plan Summary Progress Towards Goals Safe For Discharge Assessment Summary Pt with improved tolerance to gait, and able to achive step- through pattern final 20 ft of gait. Otherwise, pt's L foot stride shorter than R. demonstrates good understanding and performance of safety with bed mobility. Pt is cleared to d/c home when medically stable. Frequency of Treatment Frequency Of Treatment Twice a Day Treatment Plan Other Recommendations and Next Treatment log roll, gait Focus Recommendations To Nursing Amount of Assist Needed 1 Person Assist Discharge Recommendations PT Discharge Recommendations Home with Assistance
[2017-08-05 21:25] VITALS: BP 130/70; PULSE 71; RESP 16; TEMP 37; O2SAT 93
[2017-08-05] MEDS: LOSARTAN 50 MG TABLET PO (21:42)
[2017-08-05] MEDS: SENNOSIDES 8.6 MG TABLET 17.2 MG PO (21:42)
[2017-08-05] MEDS: MAGNESIUM HYDROXIDE 30 ML UDC PO (21:43)
[2017-08-05] MEDS: TAMSULOSIN 0.4 MG CAPSULE PO (21:43)
[2017-08-06] MEDS: ACETAMINOPHEN 325 MG TABLET 650 MG PO ×3 (00:18→12:58)
[2017-08-06] MEDS: OXYCODONE IR 5 MG TABLET 10 MG PO ×5 (00:19→12:57)
[2017-08-06 00:20] VITALS: BP 116/60; PULSE 68; RESP 16; TEMP 37; O2SAT 94
[2017-08-06 06:31] VITALS: BP 107/54; PULSE 65; RESP 18; TEMP 36.7; O2SAT 92
--- NOTE | 2017-08-06 07:33 | P.DS_ITS ---
History of Present Illness Date Patient Seen: 08/06/17 Time Patient Seen: 07:29 Chief complaint: [id number] Discharge Providers Date of admission: 08/01/17 06:37 Consults: 08/01/17 16:33 Consult to Occupational Therapy Evaluate & Treat Comment: Physician Instructions: Evaluate and treat Consult to Physical Therapy Evaluate & Treat Comment: Physician Instructions: Evaluate and Treat Discharge provider: Kyle Maza PA-C Summary Discharge Diagnosis: Status post: 1. L3-4, L4-5, L5-S1 Postero-lateral and posterior interbody fusion 2. L3-4, L4-5, L5-S1 interbody cage placement. 3. L3-4, L4-5, L5-S1 decompressive laminectomy with bilateral facetecomies 4. L3-4, L4-5, L5-S1 Posterior segmental instrumentation 5. 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 Utilization of microsurgical technique and operating microscope [facility] Course: Patient has been having chronic back pain and worsening lumbar radiculopathy. Patient failed multiple conservative management with worsening pain weakness and numbness in her lower extremity. Patient has been having difficulty performing activity of daily living. After discussing risks benefits of treatment options, patient elected proceed with surgery. Surgeon: Sabina Wayne Personal Assistant: Gali Garcia Click Yes if Unassisted: No Anesthesia Type: General Patient was slow to progress after surgery secondary to his Parkinson's. Patient required 2 person assist. Patient states he was able to walk out of the galarza yesterday. His pain is well managed. His is home to assist him. Patient would like to be discharged home. Status at Discharge Functional status at discharge: uses cane/walker Overall status at discharge: patient is progressing back to baseline Time Spent with Patient Less than 30 minutes Exam Vital Signs (past 8 hours): - 08/06/17 00:20 08/06/17 06:31 Temperature 98.6 F 98.0 F Pulse Rate 68 65 Respiratory Rate 16 18 Blood Pressure 116/60 107/54 L Pulse Oximetry 94 92 Fraction of Inspired Oxygen 28 Oxygen Delivery Method Room Air,CPAP Oxygen Flow Rate 0 Narrative Exam Narrative: Patient denies fever or chills. No nausea vomiting. He is resting comfortably in bed. Patient no apparent distress. Lumbar dressing is clean, dry and intact. Sensation grossly intact to light touch bilateral lower extremities. Motor functions intact distal bilateral lower extremities. Objective Labs Result Diagrams: 08/02/17 06:25 Discharge Plan Discharge Plan Patient Disposition: Home, Self-Care Discharge comment: DC home today Discharge Med Rec/Prescriptions Prescriptions: New oxycodone 5 mg tablet 5 mg PO Q3H PRN (Reason: pain) Qty: 60 RF: 0 Continue losartan 50 mg Tablet 50 mg PO BEDTIME RF: 0 tamsulosin 0.4 mg Capsule,Extended Release 24hr 0.4 mg PO BEDTIME RF: 0 omega-3 fatty acids-fish oil [Fish Oil] 300-1,000 mg Capsule 1 cap PO DAILY RF: 0 cholecalciferol (vitamin D3) [Vitamin D3] 5,000 unit Tablet 5,000 unit PO DAILY RF: 0 carbidopa-levodopa [Rytary] 36.25-145 mg Capsule, Extended Release 3 cap PO TID RF: 0 Follow up/Referrals: Sabina Wayne MD [Physician] - (Follow up 10-14 days) Provider Discharge Instructions Diet: Diet as Tolerated Activity: Limited bending, lifting, twisting Cold/Heat Therapy: As needed Wound Care Dressing: Keep dressing clean and dry Discharge Data Attending Provider: Sabina Wayne Admit Date/Time: 08/01/17 06:37
[2017-08-06 07:40] VITALS: BP 112/58; PULSE 64; RESP 16; TEMP 36.7; O2SAT 95
--- NOTE | 2017-08-06 09:16 | PT.IPTN ---
Current Diagnoses Spondylolisthesis, lumbar region (08/01/17) Other spondylosis with radiculopathy, lumbar region (08/01/17) Spinal stenosis, lumbar region without neurogenic claudication (08/01/17) Surgery Performed Operation Date: 08/01/17 07:45 Actual Procedures p L3-4,L4-5,L5-S1 TLIF w/Posterior Ximena Wayne MD Physical Therapy Treatment Note M2 PT-IP Current Condition Start: 08/02/17 12:19 Freq: NEEDED Status: Active Protocol: Document 08/05/17 14:25 [facility] (Rec: 08/05/17 16:37 [facility] [id number]) Physical Therapy Current Condition Current Condition Evaluation Date 08/02/17 Treatment Diagnosis s/p TLIF Onset Date 08/01/17 Precautions Lumbar Precautions Log Roll No Twisting Limit Bending Lifting Restriction of 10 lbs Gait Belt above Incisional Area M3 PT-IP Subjective Start: 08/02/17 12:19 Freq: NEEDED Status: Active Protocol: Document 08/06/17 09:06 RS (Rec: 08/06/17 09:16 [id number]) Subjective Physical Therapy Visit Type Type Discharge Summary Visit Start Time 08:25 Visit Stop Time 09:06 Total Visit Minutes 41 Physical Therapy Visit Comments Patient Comments Pt and both feel ready to discharge home today. Therapy Pain Assessment Pain When Pain Assessed At Rest Pain Present Pain Present Denied Pain M4 PT-IP Mobility and Gait Start: 08/02/17 12:19 Freq: NEEDED Status: Active Protocol: Document 08/06/17 09:06 RS (Rec: 08/06/17 09:16 RS [id number]) PT-Bed Mobility Assessment Rolling Type of Rolling Log Rolling Roll to Left Level of Assist 1 Person Assistance Supine to Sit Supine to Sit 1 Person Assistance Scooting Scooting to Edge of Bed Minimal Assistance PT-Transfer Assessment Sit to and From Stand Sit to and from Stand 1 Person Assistance Use of Upper Extremities Equipment Transfer Assistive Device Front Wheeled Walker Transfers Transfer Destination Chair Transfer Technique Stand Step Pivot Transfer Ability Level of Assist Standby Assistance Comments Mobility Comments performed all transfers with the patient, no cues needed from PT. Gait Assessment Gait Gait Assistance Required: Standby Assistance Distance (Feet) (feet) 150 Assistive Devices Assistive Device Gait Belt Front Wheeled Walker Gait Deviations General Gait Pattern Within Normal Limits Factors Limiting Gait Function Factors Limiting Gait Function Decreased Strength Poor Balance Comments Gait Comments step through gait utilized most of the walking bout. M5 PT-IP Objective Assessments Start: 08/02/17 12:19 Freq: NEEDED Status: Active Protocol: Document 08/02/17 09:10 [facility] (Rec: 08/02/17 12:46 [facility] [id number]) Orientation Orientation/Cognition Level of Alertness Alert Orientation Name Place Situation Safety Awareness Decreased Safety Awareness Strength Lower Extremity Strength Assessment Bilaterally Impaired Hip 4-/5 Knee 3+/5 Muscle Tone Comments Muscle Tone Comments (+) LLE resting tremor M6 PT-IP Treatment Start: 08/02/17 12:19 Freq: NEEDED Status: Active Protocol: Document 08/05/17 14:25 [facility] (Rec: 08/05/17 16:37 [facility] [id number]) Physical Therapy Treatment Education Education Provided Safety M7 PT-IP Assessment and Plan Start: 08/02/17 12:19 Freq: NEEDED Status: Active Protocol: Document 08/06/17 09:06 RS (Rec: 08/06/17 09:16 RS [id number]) PT Summary Assessment and Plan Potential Rehabilitation Potential Good Status of Condition at Evaluation Stable Summary Progress Towards Goals Safe For Discharge Goals Met Assessment Summary Pt able to walk even further today. able to provide the appropriate and safe level of assist for all mobility. All questions have been answered. Pt is safe to dc home today. Acute PT will sign off. Frequency of Treatment Frequency Of Treatment Discharge Recommendations To Nursing Amount of Assist Needed 1 Person Assist Discharge Recommendations PT Discharge Recommendations Home with Assistance Home Health
[2017-08-06] MEDS: DOXYCYCLINE HYCLATE 100 MG TABLET PO (09:48)
[2017-08-06] MEDS: DOCUSATE 100 MG CAPSULE PO (09:48)
--- NOTE | 2017-08-06 11:33 | PC.NURSE ---
Addendum entered by Winter Goss R.N. 08/06/17 13:24: Discharge: Reviewed all d/c info and instructions thoroughly. Given s/sx with which to call MD. Given education info on surgery and all new meds. Script for Doxycycline called in to pharmacy in [place], hard copy script for Oxycodone sent with patient at discharge. Dressings on back changed prior to discharge per patient request. 2 incisions, one on either side of the spine, were well-approximated and covered with Xeroform gauze which I left in place and covered with new Coversite dressing. Small allevyn dressing placed over tape-blister on back. Instructed to leave dressings on until follow up appt. Patient and expressed understanding of d/c instructions and stated no further questions. All belongings sent at d/c, taken out to private vehicle via wheelchair. Original Note: Shift summary: Awake and alert, oriented X3. Reports back pain well-managed with PO Oxycodone and scheduled Tylenol, rated 1/10 when assessed. Dressings to mid low back C/D/I. Patient showering with LUBRICATING ENGINEER assist- will place new dressing afterwards per patient request. CMS+, denies any paresthesias. Lungs CTA, SpO2 on RA 95%. HRR. BT+, flatus+. Had BM this morning. Plan is to d/c home, patient and aware and agreeable. Waiting on SHANON Mainor to come back to floor (or return message left on cellphone) to address the need for a script to continue the Doxycycline that he was started on for his UTI. Able to make needs known and calls appropriately. Light in reach. rooming in and very helpful/attentive. PT cleared patient to be able to get up in room with 's assist and FWW. Home med Rytara retrieved from pharmacy and given to patient in anticipation of d/c.
--- NOTE | 2017-08-06 14:44 | CM.DPC ---
Addendum entered by Melissa Borden LPN 08/06/17 14:48: correction: [facility] was not the snf of choice. It does not appear that a referral had yet been put into [facility]/ the snf choice. Original Note: DCP: continued: case received, EMR reviewed and checked in this morning with pt and his . Both report that they are very pleased with pt's progress and that he is going home. Followup with ortho clinic as planned. Devante Iniguez and Janny/[facility] are updated re the final d/c disposition.
== END 2017-08-06 13:00 | disposition home or self-care (01) | DRG 454 ==
PROVIDERS: Admitting Provider Orthopaedic Surgery Orthopaedic Surgery of the Spine; Visit Provider Orthopaedic Surgery Orthopaedic Surgery of the Spine
PROC: 0SG10AJ Fusion of 2 or more Lumbar Vertebral Joints with Interbody Fusion Device, Posterior Approach, Anterior Column, Open Approach (ICD-10-PCS; principal; 2017-08-01 07:45)
DX: M48.061 Spinal stenosis, lumbar region without neurogenic claudication (principal); N39.0 Urinary tract infection, site not specified; M43.16 Spondylolisthesis, lumbar region; M47.26 Other spondylosis with radiculopathy, lumbar region; G20 Parkinson's disease; M48.07 Spinal stenosis, lumbosacral region; M43.17 Spondylolisthesis, lumbosacral region; M47.27 Other spondylosis with radiculopathy, lumbosacral region; B95.7 Other staphylococcus as the cause of diseases classified elsewhere
CPT/HCPCS: 36415; 72100; 76001; 81001; 85014; 85018; 87077; 87086; 94760; 97116; 97162; 97165; 97530; 97535; C1776; C9290; J0131; J0330; J0690; J1100; J1170; J2250; J2405; J2704; J3010

== ENCOUNTER 2020-05-24 16:37 | Emergency (ER) | payer MEDICARE, SELFPAY ==
[2017-08-01 16:44] VITALS: BMI 34.8
[2020-05-24 16:44] VITALS: BP 178/107; PULSE 79; RESP 18; TEMP 37.1; O2SAT 97
--- NOTE | 2020-05-24 16:52 | ED.GENADULT ---
HPI - General Adult General Chief complaint: Abdominal Pain Stated complaint: UTI & extreme pain Time Seen by Provider: 05/24/20 16:40 Source: patient Mode of arrival: Ambulatory Limitations: no limitations History of Present Illness HPI narrative: Patient is a 74-year-old male who arrives to the emergency department for lower abdominal pain and inability to urinate. He does have a history of bladder stones and enlarged prostate. Does see a urologist on a regular basis. Is on Macrobid 100 in the bases for suppression and states he has not had infection in many months. Went to the walk-in clinic today for 2 days of dysuria and pain. A urinalysis was obtained and he was told that he had a urinary tract infection. Prescription for antibiotics was given him but he has not taken it. He comes to the emergency department because he has lower abdominal discomfort. Related Data Home Medications Medication Instructions Recorded Confirmed carbidopa-levodopa [Rytary] 3 cap PO TID 07/25/17 05/24/20 cholecalciferol (vitamin D3) 5,000 unit PO DAILY 07/25/17 05/24/20 [Vitamin D3] losartan 50 mg PO BEDTIME 07/25/17 05/24/20 omega-3 fatty acids-fish oil [Fish 1 cap PO DAILY 07/25/17 05/24/20 Oil] tamsulosin 0.4 mg PO BEDTIME 07/25/17 05/24/20 Previous Rx's Medication Instructions Recorded oxycodone 5 mg PO Q3H PRN #60 tab 08/06/17 cefdinir 300 mg capsule 300 mg PO BID #14 cap 05/24/20 Allergies Allergy/AdvReac Type Severity Reaction Status Date / Time No Known Drug Allergies Allergy Verified 05/24/20 11:42 Review of Systems Constitutional Constitutional: Denies fever(s) and Denies headache(s) ENT Ears, Nose, Mouth, and Throat: Denies headache(s) Cardiovascular Cardiovascular: Denies chest pain and Denies dyspnea Respiratory Respiratory: Denies dyspnea Gastrointestinal Gastrointestinal: Denies abdominal pain, Denies nausea and Denies vomiting Genitourinary Genitourinary: Denies dysuria Genitourinary: Denies dysuria Musculoskeletal Musculoskeletal: Denies arthralgias and Denies myalgias Integumentary/Breasts Skin/Breast: Denies lesions and Denies rash Neurologic Neurologic: Denies behavioral changes and Denies headache(s) Psychiatric Psychiatric: Denies behavioral changes Hematologic/Lymphatic On Anticoagulants: No Allergic/Immunologic Allergic/Immunologic: Denies urticaria Patient History Medical History Arthritis Basal cell carcinoma (BCC) Cervical radiculopathy Elevated PSA Heart murmur History of bladder stone HTN (hypertension) Intermittent tremor Paresthesias Parkinson's disease Skin cancer Sleep apnea with use of continuous positive airway pressure (CPAP) Spinal stenosis Surgical History Hx of hernia repair Hx of prostate biopsy Hx of right knee surgery Hx of shoulder surgery Social History household members: spouse, family and other Smoking Status: Never smoker alcohol intake: current Smoking Status: Never smoker alcohol intake frequency: 0-2 drinks per day Substance Use Type: does not use Exam Initial Vital Signs Initial Vital Signs: Vital Signs Temperature 98.7 F 05/24/20 16:44 Pulse Rate 79 05/24/20 16:44 Respiratory Rate 18 05/24/20 16:44 Blood Pressure 178/107 H 05/24/20 16:44 Pulse Oximetry 97 05/24/20 16:44 Const General: cooperative and comfortable Limitations: mental status not altered HENMT Head: normal to inspection and normocephalic Resp Effort & Inspection: normal respiratory effort Cardio Rate: regular rate GI Inspection: distended Palpation: tender Skin Lesions: no lesions Rashes: no rashes Neuro General: patient alert and patient awake Cognition: normal cognition Speech: speech normal Extrem General: normal to inspection and capillary refill normal Psych Appearance: grossly normal and well kempt Course Vital Signs Vital signs: Vital Signs - 8 hr 05/24/20 16:44 Temperature 98.7 F Pulse Rate 79 Respiratory Rate 18 Blood Pressure 178/107 H Pulse Oximetry 97 Medical Decision Making [facility] Narrative Medical decision making narrative: Review the patient's medical record does show that a urinalysis was performed at the walk-in clinic earlier today. Was nitrite positive. He already has antibiotics prescribed to him. Bladder scan here shows 800 cc. A Berger catheter was placed in 1400 cc returned. Patient states he feels much better. Patient stated that he would like to have the catheter removed. We did discuss the risks and benefits this. We discussed that removing the catheter cares with that a high probability that he would return with continued urinary retention. We also discussed the risks and benefits of leaving the catheter in. After this discussion with his at bedside the patient opted to have a removed. He states he will return if he retains urine once again. He was given return precautions and follow-up instructions. He expressed understanding agreement. Discharge Plan Departure Patient Disposition: Home Clinical Impression: UTI (urinary tract infection), Acute urinary retention Prescriptions: No Action cefdinir 300 mg capsule 300 mg PO BID Qty: 14 RF: 0 losartan 50 mg Tablet 50 mg PO BEDTIME RF: 0 tamsulosin 0.4 mg Capsule,Extended Release 24hr 0.4 mg PO BEDTIME RF: 0 omega-3 fatty acids-fish oil [Fish Oil] 300-1,000 mg Capsule 1 cap PO DAILY RF: 0 cholecalciferol (vitamin D3) [Vitamin D3] 5,000 unit Tablet 5,000 unit PO DAILY RF: 0 carbidopa-levodopa [Rytary] 36.25-145 mg Capsule, Extended Release 3 cap PO TID RF: 0 oxycodone 5 mg tablet 5 mg PO Q3H PRN (Reason: pain) Qty: 60 RF: 0 Referrals: Yue Orona MD [Primary Care Provider] -
[2020-05-24 18:00] VITALS: BP 168/94; PULSE 69; RESP 18; O2SAT 94
== END 2020-05-24 18:32 | disposition home or self-care (01) ==
PROVIDERS: Emergency Provider Emergency Medicine; PCP Internal Medicine
DX: N39.0 Urinary tract infection, site not specified (principal); R33.9 Retention of urine, unspecified
CPT/HCPCS: 51701; 51798; 87077; 87086; 87186; 99283

== ENCOUNTER 2020-06-09 12:24 | Emergency (ER) | payer MEDICARE, SELFPAY ==
[2017-08-01 16:44] VITALS: BMI 34.8
--- NOTE | 2020-06-09 12:36 | ED_ITS ---
HPI - General Adult General Chief complaint: Urogenital-Male Stated complaint: urinary retention Time Seen by Provider: 06/09/20 12:28 Source: patient Mode of arrival: EMS Limitations: no limitations History of Present Illness HPI narrative: Patient is a 75-year-old male who I evaluated in the emergency department in the past for acute urinary retention. Since that time he has completed a course of antibiotics for urinary tract infection. He has seen a urologist. This morning he had the Berger catheter removed and has been unable to urinate since then. He is having lower abdominal discomfort. Related Data Home Medications Medication Instructions Recorded Confirmed carbidopa-levodopa [Rytary] 3 cap PO TID 07/25/17 05/24/20 cholecalciferol (vitamin D3) 5,000 unit PO DAILY 07/25/17 05/24/20 [Vitamin D3] losartan 50 mg PO BEDTIME 07/25/17 05/24/20 omega-3 fatty acids-fish oil [Fish 1 cap PO DAILY 07/25/17 05/24/20 Oil] tamsulosin 0.4 mg PO BEDTIME 07/25/17 05/24/20 Previous Rx's Medication Instructions Recorded oxycodone 5 mg PO Q3H PRN #60 tab 08/06/17 cefdinir 300 mg capsule 300 mg PO BID #14 cap 05/24/20 Allergies Allergy/AdvReac Type Severity Reaction Status Date / Time No Known Drug Allergies Allergy Verified 05/24/20 11:42 Review of Systems Constitutional Constitutional: Denies fever(s) Cardiovascular Cardiovascular: Denies chest pain and Denies dyspnea Respiratory Respiratory: Denies dyspnea Gastrointestinal Gastrointestinal: Reports abdominal pain, Denies nausea and Denies vomiting Genitourinary Comments: Urinary retention Musculoskeletal Musculoskeletal: Reports back pain Integumentary/Breasts Skin/Breast: Denies rash Neurologic Neurologic: Denies behavioral changes Psychiatric Psychiatric: Denies behavioral changes Hematologic/Lymphatic On Anticoagulants: No Allergic/Immunologic Allergic/Immunologic: Denies urticaria Patient History Medical History Arthritis Basal cell carcinoma (BCC) Cervical radiculopathy Elevated PSA Heart murmur History of bladder stone HTN (hypertension) Intermittent tremor Paresthesias Parkinson's disease Skin cancer Sleep apnea with use of continuous positive airway pressure (CPAP) Spinal stenosis Surgical History Hx of hernia repair Hx of prostate biopsy Hx of right knee surgery Hx of shoulder surgery Social History household members: spouse, family and other Smoking Status: Never smoker alcohol intake: current Smoking Status: Never smoker alcohol intake frequency: 0-2 drinks per day Substance Use Type: does not use Exam Initial Vital Signs Initial Vital Signs: Vital Signs Temperature 98.5 F 06/09/20 12:49 Pulse Rate 82 06/09/20 12:49 Respiratory Rate 14 06/09/20 12:49 Blood Pressure 206/101 H 06/09/20 12:49 Pulse Oximetry 94 06/09/20 12:49 Const General: cooperative and comfortable Limitations: mental status not altered HENMT Head: normal to inspection and normocephalic Resp Effort & Inspection: normal respiratory effort Cardio Rate: regular rate GI Palpation: tender (Lower abdomen) Skin Lesions: no lesions Rashes: no rashes Neuro General: patient alert, patient awake and patient oriented x3 Cognition: normal cognition Speech: speech normal Extrem General: normal to inspection and capillary refill normal Psych Appearance: grossly normal and well kempt Course Orders Ordered: Discontinued Medications Lidocaine HCl (Lidocaine 2% (Glydo) 6 Ml Gel) 6 ml TOP NOW ONE Stop: 06/09/20 12:36 Last Admin: 06/09/20 12:40 Dose: 6 ml Documented by: [email or web address] Vital Signs Vital signs: Vital Signs - 8 hr 06/09/20 12:49 Temperature 98.5 F Pulse Rate 82 Respiratory Rate 14 Blood Pressure 206/101 H Pulse Oximetry 94 Medical Decision Making [facility] Narrative Medical decision making narrative: A coude catheter was used and successful drainage of approximately 1200 cc of urine. This did relieve the patient's symptoms. Will leave the catheter in and discharged home with follow-up with his urologist. He was given return precautions. Expressed understanding agreement. Discharge Plan Departure Patient Disposition: Home Clinical Impression: Acute retention of urine Instructions: How to Care for Your Berger Catheter -- Male, DI for Urinary Retention in Men Activity Restrictions/Additional Instructions: Recommend you contact your primary provider for follow-up and also your urologist. Return to the emergency department for any new or worsening symptoms Prescriptions: No Action cefdinir 300 mg capsule 300 mg PO BID Qty: 14 RF: 0 losartan 50 mg Tablet 50 mg PO BEDTIME RF: 0 tamsulosin 0.4 mg Capsule,Extended Release 24hr 0.4 mg PO BEDTIME RF: 0 omega-3 fatty acids-fish oil [Fish Oil] 300-1,000 mg Capsule 1 cap PO DAILY RF: 0 cholecalciferol (vitamin D3) [Vitamin D3] 5,000 unit Tablet 5,000 unit PO DAILY RF: 0 carbidopa-levodopa [Rytary] 36.25-145 mg Capsule, Extended Release 3 cap PO TID RF: 0 oxycodone 5 mg tablet 5 mg PO Q3H PRN (Reason: pain) Qty: 60 RF: 0 Referrals: Yue Orona MD [Primary Care Provider] -
[2020-06-09] MEDS: LIDOCAINE 2% (GLYDO) 6 ML GEL TOP (12:40)
[2020-06-09 12:49] VITALS: BP 206/101; PULSE 82; RESP 14; TEMP 36.9; O2SAT 94; BMI 32.5
[2020-06-09 13:34] VITALS: BP 177/85
== END 2020-06-09 13:34 | disposition home or self-care (01) ==
PROVIDERS: Emergency Provider Emergency Medicine; PCP Internal Medicine
DX: R33.8 Other retention of urine (principal)
CPT/HCPCS: 51701; 51798; 99283

== ENCOUNTER 2020-06-22 00:04 | Emergency (ER) | payer MEDICARE, SELFPAY ==
[2017-08-01 16:44] VITALS: BMI 34.8
[2020-06-22 00:13] VITALS: BP 179/89; PULSE 69; RESP 22; TEMP 37.2; O2SAT 95
--- NOTE | 2020-06-22 00:17 | ED_ITS ---
HPI - General Adult General Chief complaint: Urogenital-Male Stated complaint: urinary retention Time Seen by Provider: 06/22/20 00:13 Source: patient and family Mode of arrival: Ambulatory Limitations: no limitations History of Present Illness HPI narrative: Patient is a 75-year-old male who is well-known to myself. I have seen him 2 times prior here in the emergency department for urinary retention issues. He is here with the catheter that was placed during his last emergency department visit still in place. He has a follow-up in approximately 24 hours with his urologist. He is here because he started to have decrease urine output and also some blood tinge to the urine. The patient's states she tried to flush it at home but was unable to. They decided to come into the emergency department before the patient started having lower abdominal pain. Related Data Home Medications Medication Instructions Recorded Confirmed carbidopa-levodopa [Rytary] 3 cap PO TID 07/25/17 05/24/20 cholecalciferol (vitamin D3) 5,000 unit PO DAILY 07/25/17 05/24/20 [Vitamin D3] losartan 50 mg PO BEDTIME 07/25/17 05/24/20 omega-3 fatty acids-fish oil [Fish 1 cap PO DAILY 07/25/17 05/24/20 Oil] tamsulosin 0.4 mg PO BEDTIME 07/25/17 05/24/20 Previous Rx's Medication Instructions Recorded oxycodone 5 mg PO Q3H PRN #60 tab 08/06/17 cefdinir 300 mg capsule 300 mg PO BID #14 cap 05/24/20 Allergies Allergy/AdvReac Type Severity Reaction Status Date / Time No Known Drug Allergies Allergy Verified 05/24/20 11:42 Review of Systems Constitutional Constitutional: Reports system reviewed and no additional complaints, except as documented Gastrointestinal Gastrointestinal: Reports system reviewed and no additional complaints, except as documented Hematologic/Lymphatic On Anticoagulants: No Allergic/Immunologic Allergic/Immunologic: Reports system reviewed and no additional complaints, except as documented Patient History Medical History Arthritis Basal cell carcinoma (BCC) Cervical radiculopathy Elevated PSA Heart murmur History of bladder stone HTN (hypertension) Intermittent tremor Paresthesias Parkinson's disease Skin cancer Sleep apnea with use of continuous positive airway pressure (CPAP) Spinal stenosis Surgical History Hx of hernia repair Hx of prostate biopsy Hx of right knee surgery Hx of shoulder surgery Social History household members: spouse, family and other Smoking Status: Never smoker alcohol intake: current Smoking Status: Never smoker alcohol intake frequency: 0-2 drinks per day Substance Use Type: does not use Exam Initial Vital Signs Initial Vital Signs: Vital Signs Temperature 98.9 F 06/22/20 00:13 Pulse Rate 69 06/22/20 00:13 Respiratory Rate 22 06/22/20 00:13 Blood Pressure 179/89 H 06/22/20 00:13 Pulse Oximetry 95 06/22/20 00:13 Const General: cooperative and comfortable HENMT Head: normal to inspection and normocephalic GI Inspection: non-distended Palpation: soft External: normal external exam and circumcised Other: Berger catheter in place Skin Lesions: no lesions Rashes: no rashes Neuro General: patient alert, patient awake and patient oriented x3 Extrem General: capillary refill normal Psych Appearance: grossly normal and well kempt Course Orders Ordered: Discontinued Medications Lidocaine HCl (Lidocaine 2% (Glydo) 6 Ml Gel) 6 ml TOP NOW ONE Stop: 06/22/20 00:33 Last Admin: 06/22/20 00:56 Dose: 6 ml Documented by: JORDAN Vital Signs Vital signs: Vital Signs - 8 hr 06/22/20 00:13 Temperature 98.9 F Pulse Rate 69 Respiratory Rate 22 Blood Pressure 179/89 H Pulse Oximetry 95 Medical Decision Making [facility] Narrative Medical decision making narrative: Nursing attempted multiple times to flush the catheter that was in place but we were unable to get any return of urine. The presenting catheter was removed and sec on was replaced without issue. There was a large clot in the catheter tube itself. Afterwards patient was able to urinate and drain urine without problems. Will have him keep all of his scheduled appointments with Urology. Was given return precautions and follow-up instructions. He expressed understanding and agreement. Discharge Plan Departure Patient Disposition: Home Clinical Impression: Complication, blocked Berger catheter Instructions: How to Care for Your Berger Catheter -- Male Activity Restrictions/Additional Instructions: Keep all of your scheduled medical appointments. Return to the emergency department for any new or worsening symptoms Prescriptions: No Action cefdinir 300 mg capsule 300 mg PO BID Qty: 14 RF: 0 losartan 50 mg Tablet 50 mg PO BEDTIME RF: 0 tamsulosin 0.4 mg Capsule,Extended Release 24hr 0.4 mg PO BEDTIME RF: 0 omega-3 fatty acids-fish oil [Fish Oil] 300-1,000 mg Capsule 1 cap PO DAILY RF: 0 cholecalciferol (vitamin D3) [Vitamin D3] 5,000 unit Tablet 5,000 unit PO DAILY RF: 0 carbidopa-levodopa [Rytary] 36.25-145 mg Capsule, Extended Release 3 cap PO TID RF: 0 oxycodone 5 mg tablet 5 mg PO Q3H PRN (Reason: pain) Qty: 60 RF: 0 Referrals: Yue Orona MD [Primary Care Provider] -
[2020-06-22] MEDS: LIDOCAINE 2% (GLYDO) 6 ML GEL TOP (00:56)
[2020-06-22 01:55] VITALS: BP 176/89; PULSE 22; RESP 20; O2SAT 100
== END 2020-06-22 01:55 | disposition home or self-care (01) ==
PROVIDERS: Emergency Provider Emergency Medicine; PCP Internal Medicine
DX: T83.091A Other mechanical complication of indwelling urethral catheter, initial encounter (principal)
CPT/HCPCS: 99282

== ENCOUNTER 2020-06-27 19:19 | Emergency (ER) | payer MEDICARE, SELFPAY ==
[2017-08-01 16:44] VITALS: BMI 34.8
[2020-06-27 19:35] VITALS: BP 132/66; PULSE 68; RESP 16; TEMP 36.4; O2SAT 96; BMI 32.5
[2020-06-27 22:21] VITALS: BP 177/93; PULSE 61; RESP 18; O2SAT 97
--- NOTE | 2020-06-28 04:20 | ED.MALEGU ---
HPI - Male Genitourinary General Chief complaint: Urogenital-Male Stated complaint: CLUGGED CATH Time Seen by Provider: 06/27/20 20:54 Source: patient Mode of arrival: Ambulatory History of Present Illness HPI Narrative: 75-year-old gentleman with significant Parkinson's disease, bladder outlet obstruction, recurrent bladder stones and UTIs as well as hypertension presents with his Berger catheter not draining well. He has been having continued difficulties with his Berger catheter recently saw his urologist who felt that the risk of a TUR with high possibility of incontinence following would not be appropriate. They have a visit scheduled with a 2nd urologist to reconsider. They would both prefer chronic urinary incontinence to continued Berger catheter issues and inability to void or having to self cath for the rest of his life. In the meantime current catheter is not draining he is having some pain as his bladder is distending but no fevers. He has had no cough, dyspnea, no flank pain. He has not been constipated. His Parkinson's disease is at its current baseline with no exacerbations recently. Related Data Home Medications Medication Instructions Recorded Confirmed carbidopa-levodopa [Rytary] 3 cap PO TID 07/25/17 05/24/20 cholecalciferol (vitamin D3) 5,000 unit PO DAILY 07/25/17 05/24/20 [Vitamin D3] losartan 50 mg PO BEDTIME 07/25/17 05/24/20 omega-3 fatty acids-fish oil [Fish 1 cap PO DAILY 07/25/17 05/24/20 Oil] tamsulosin 0.4 mg PO BEDTIME 07/25/17 05/24/20 Previous Rx's Medication Instructions Recorded oxycodone 5 mg PO Q3H PRN #60 tab 08/06/17 cefdinir 300 mg capsule 300 mg PO BID #14 cap 05/24/20 Allergies Allergy/AdvReac Type Severity Reaction Status Date / Time No Known Drug Allergies Allergy Verified 05/24/20 11:42 Review of Systems Review of Systems Narrative: Remainder of complete review of systems is otherwise unremarkable except for that included in the HPI. Patient History Medical History Arthritis Basal cell carcinoma (BCC) Cervical radiculopathy Elevated PSA Heart murmur History of bladder stone HTN (hypertension) Intermittent tremor Paresthesias Parkinson's disease Skin cancer Sleep apnea with use of continuous positive airway pressure (CPAP) Spinal stenosis Surgical History Hx of hernia repair Hx of prostate biopsy Hx of right knee surgery Hx of shoulder surgery Social History household members: spouse, family and other Smoking Status: Never smoker alcohol intake: current Smoking Status: Never smoker alcohol intake frequency: 0-2 drinks per day Substance Use Type: does not use Exam Narrative Exam Narrative: General: Alert appropriate in no acute distress Respiratory: Able to speak in full sentences, no obvious respiratory distress Skin: No obvious rashes, warm and dry Neurologic: Grossly intact no obvious asymmetries or abnormalities Psych: appropriate insight and affect, cooperative Initial Vital Signs Initial Vital Signs: Vital Signs Temperature 97.5 F L 06/27/20 19:35 Pulse Rate 68 06/27/20 19:35 Respiratory Rate 16 06/27/20 19:35 Blood Pressure 132/66 06/27/20 19:35 Pulse Oximetry 96 06/27/20 19:35 Course Vital Signs Vital signs: Vital Signs - 8 hr 06/27/20 22:21 Pulse Rate 61 Respiratory Rate 18 Blood Pressure 177/93 H Pulse Oximetry 97 MDM - Male Genitourinary MDM Narrative Medical decision making narrative: Berger catheter is replaced without difficulty in good return of urine. Patient is discharged home with instructions to follow-up with his urologist as scheduled. Discharge Plan Departure Patient Disposition: Home Clinical Impression: Complication, blocked Berger catheter Qualifiers: Encounter type: subsequent encounter Qualified Code(s): T83.091D - Other mechanical complication of indwelling urethral catheter, subsequent encounter Instructions: How to Care for Your Berger Catheter -- Male, DI for Urinary Retention in Men Activity Restrictions/Additional Instructions: Thank you for coming in today Your Berger catheter was replaced today because the other was blocked and no longer draining I wish you the best in following up with your next urology appointment regarding a 2nd opinion and possibility of a TUR. If you have any problems, please feel free to return to the ER Prescriptions: No Action cefdinir 300 mg capsule 300 mg PO BID Qty: 14 RF: 0 losartan 50 mg Tablet 50 mg PO BEDTIME RF: 0 tamsulosin 0.4 mg Capsule,Extended Release 24hr 0.4 mg PO BEDTIME RF: 0 omega-3 fatty acids-fish oil [Fish Oil] 300-1,000 mg Capsule 1 cap PO DAILY RF: 0 cholecalciferol (vitamin D3) [Vitamin D3] 5,000 unit Tablet 5,000 unit PO DAILY RF: 0 carbidopa-levodopa [Rytary] 36.25-145 mg Capsule, Extended Release 3 cap PO TID RF: 0 oxycodone 5 mg tablet 5 mg PO Q3H PRN (Reason: pain) Qty: 60 RF: 0 Referrals: Yue Orona MD [Primary Care Provider] -
== END 2020-06-27 22:24 | disposition home or self-care (01) ==
PROVIDERS: Emergency Provider Emergency Medicine; PCP Internal Medicine
DX: T83.091A Other mechanical complication of indwelling urethral catheter, initial encounter (principal)
CPT/HCPCS: 51701; 51705; 99283

== ENCOUNTER 2020-07-19 06:03 | Emergency (ER) | payer MEDICARE, SELFPAY ==
[2017-08-01 16:44] VITALS: BMI 34.8
[2020-07-19 06:11] VITALS: BP 182/88; PULSE 64; RESP 18; TEMP 36.3; O2SAT 98; BMI 32.5
--- NOTE | 2020-07-19 06:12 | ED.GENADULT ---
HPI - General Adult General Chief complaint: Urogenital-Male Stated complaint: blocked catheter Time Seen by Provider: 07/19/20 06:03 Source: patient Mode of arrival: Ambulatory Limitations: no limitations History of Present Illness HPI narrative: patient is a 75-year-old male. Well known to myself. Has been here multiple times over the past several weeks for issues with a clogged Berger catheter. He has seen Urology to discuss potential surgical intervention of his urinary retention. He states that he has a procedure scheduled for next week to further determine potential surgical options. He is here because his current Berger catheter is not draining and they were unable to clear the blockage at home. Related Data Home Medications Medication Instructions Recorded Confirmed carbidopa-levodopa [Rytary] 3 cap PO TID 07/25/17 05/24/20 cholecalciferol (vitamin D3) 5,000 unit PO DAILY 07/25/17 05/24/20 [Vitamin D3] losartan 50 mg PO BEDTIME 07/25/17 05/24/20 omega-3 fatty acids-fish oil [Fish 1 cap PO DAILY 07/25/17 05/24/20 Oil] tamsulosin 0.4 mg PO BEDTIME 07/25/17 05/24/20 Previous Rx's Medication Instructions Recorded oxycodone 5 mg PO Q3H PRN #60 tab 08/06/17 cefdinir 300 mg capsule 300 mg PO BID #14 cap 05/24/20 Allergies Allergy/AdvReac Type Severity Reaction Status Date / Time No Known Drug Allergies Allergy Verified 05/24/20 11:42 Review of Systems Constitutional Constitutional: Reports system reviewed and no additional complaints, except as documented Gastrointestinal Gastrointestinal: Reports system reviewed and no additional complaints, except as documented Genitourinary Comments: Berger catheter not draining Patient History Medical History Arthritis Basal cell carcinoma (BCC) Cervical radiculopathy Elevated PSA Heart murmur History of bladder stone HTN (hypertension) Intermittent tremor Paresthesias Parkinson's disease Skin cancer Sleep apnea with use of continuous positive airway pressure (CPAP) Spinal stenosis Surgical History Hx of hernia repair Hx of prostate biopsy Hx of right knee surgery Hx of shoulder surgery Social History household members: spouse, family and other Smoking Status: Never smoker alcohol intake: current Smoking Status: Never smoker alcohol intake frequency: 0-2 drinks per day Substance Use Type: does not use Exam Initial Vital Signs Initial Vital Signs: Vital Signs Temperature 97.4 F L 07/19/20 06:11 Pulse Rate 64 07/19/20 06:11 Respiratory Rate 18 07/19/20 06:11 Blood Pressure 182/88 H 07/19/20 06:11 Pulse Oximetry 98 07/19/20 06:11 Const General: cooperative and comfortable HENMT Head: normal to inspection and normocephalic External: circumcised Other: Berger catheter in place Skin Rashes: no rashes Psych Appearance: grossly normal and well kempt Course Vital Signs Vital signs: Vital Signs - 8 hr 07/19/20 06:11 Temperature 97.4 F L Pulse Rate 64 Respiratory Rate 18 Blood Pressure 182/88 H Pulse Oximetry 98 Medical Decision Making MDM Narrative Medical decision making narrative: The indwelling Berger catheter was removed and replaced with a 20 [place] coude catheter without incident. He will keep his future urologic appointments. Discharge Plan Departure Patient Disposition: Home Clinical Impression: Complication of Berger catheter Activity Restrictions/Additional Instructions: Continue to keep all of your scheduled urologic appointments. Return to the emergency department for any new or worsening symptoms Prescriptions: No Action cefdinir 300 mg capsule 300 mg PO BID Qty: 14 RF: 0 losartan 50 mg Tablet 50 mg PO BEDTIME RF: 0 tamsulosin 0.4 mg Capsule,Extended Release 24hr 0.4 mg PO BEDTIME RF: 0 omega-3 fatty acids-fish oil [Fish Oil] 300-1,000 mg Capsule 1 cap PO DAILY RF: 0 cholecalciferol (vitamin D3) [Vitamin D3] 5,000 unit Tablet 5,000 unit PO DAILY RF: 0 carbidopa-levodopa [Rytary] 36.25-145 mg Capsule, Extended Release 3 cap PO TID RF: 0 oxycodone 5 mg tablet 5 mg PO Q3H PRN (Reason: pain) Qty: 60 RF: 0 Referrals: Yue Orona MD [Primary Care Provider] -
--- NOTE | 2020-07-19 06:47 | PC.NURSE ---
New 20Fr Coude blakely placed; good output with pink urine
== END 2020-07-19 06:47 | disposition home or self-care (01) ==
LOC: ED 06:31
PROVIDERS: Emergency Provider Emergency Medicine; PCP Internal Medicine
DX: T83.9XXA Unspecified complication of genitourinary prosthetic device, implant and graft, initial encounter (principal)
CPT/HCPCS: 51702; 99283

== ENCOUNTER 2020-07-27 20:41 | Emergency (ER) | payer MEDICARE, SELFPAY ==
[2017-08-01 16:44] VITALS: BMI 34.8
[2020-07-27 20:44] VITALS: BP 162/83; PULSE 72; RESP 16; TEMP 36.7; O2SAT 95
--- NOTE | 2020-07-27 21:49 | ED.MALEGU ---
HPI - Male Genitourinary General Chief complaint: Urogenital-Male Stated complaint: clogged urinary catheter Time Seen by Provider: 07/27/20 21:18 Source: patient and family Mode of arrival: Wheelchair Limitations: no limitations History of Present Illness HPI Narrative: 75-year-old male nonsmoker with history of urinary retention presents with his in the chief complaint of intermittent blockage of the Blakely and hematuria over the course of the day along with a recent history of the same. The patient is not dizzy nor weak or lightheaded. He denies chest pain or trouble breathing. He has no abdominal pain or discomfort and denies any fever or shaking chills. made attempts to flush at home and she got no return hence their decision to present to the emergency department. MD Complaint: other Onset (ago): hour(s) Duration: constant Exacerbating factors: none Associated symptoms: Reports blood in urine Related Data Home Medications Medication Instructions Recorded Confirmed carbidopa-levodopa [Rytary] 3 cap PO TID 07/25/17 05/24/20 cholecalciferol (vitamin D3) 5,000 unit PO DAILY 07/25/17 05/24/20 [Vitamin D3] losartan 50 mg PO BEDTIME 07/25/17 05/24/20 omega-3 fatty acids-fish oil [Fish 1 cap PO DAILY 07/25/17 05/24/20 Oil] tamsulosin 0.4 mg PO BEDTIME 07/25/17 05/24/20 Previous Rx's Medication Instructions Recorded oxycodone 5 mg PO Q3H PRN #60 tab 08/06/17 cefdinir 300 mg capsule 300 mg PO BID #14 cap 05/24/20 Allergies Allergy/AdvReac Type Severity Reaction Status Date / Time No Known Drug Allergies Allergy Verified 05/24/20 11:42 Review of Systems Constitutional Constitutional: Denies chills, Denies fatigue, Denies fever(s), Denies frequent falls, Denies lethargy and Denies weakness Eyes Eyes: Denies change in vision, Denies eye discharge, Denies irritation and Denies loss of vision ENT Ears, Nose, Mouth, and Throat: Denies change in voice, Denies dizziness, Denies neck pain, Denies sore throat and Denies throat swelling Cardiovascular Cardiovascular: Denies chest pain, Denies irregular heart rhythm, Denies lightheadedness, Denies palpitations, Denies dyspnea, Denies dyspnea on exertion and Denies orthopnea Respiratory Respiratory: Denies cough, Denies dyspnea, Denies dyspnea on exertion and Denies wheezing Gastrointestinal Gastrointestinal: Denies abdominal pain, Denies change in bowel habits, Denies diarrhea, Denies nausea and Denies vomiting Genitourinary Genitourinary: Reports hematuria and Reports oliguria Genitourinary: Reports hematuria Musculoskeletal Musculoskeletal: Denies neck pain and Denies numbness Integumentary/Breasts Skin/Breast: Denies pruritus, Denies erythema, Denies rash and Denies wounds Neurologic Neurologic: Denies behavioral changes, Denies confusion, Denies dizziness, Denies frequent falls, Denies loss of vision, Denies numbness and Denies weakness Psychiatric Psychiatric: Denies anxiety, Denies behavioral changes, Denies confusion, Denies depression, Denies homicidal ideation and Denies suicidal ideation Endocrine Endocrine: Denies fatigue, Denies flushing and Denies palpitations Hematologic/Lymphatic Hematologic/Lymphatic: Denies easy bruising Allergic/Immunologic Allergic/Immunologic: Denies urticaria, Denies throat swelling and Denies wheezing Patient History Medical History Arthritis Basal cell carcinoma (BCC) Cervical radiculopathy Elevated PSA Heart murmur History of bladder stone HTN (hypertension) Intermittent tremor Paresthesias Parkinson's disease Skin cancer Sleep apnea with use of continuous positive airway pressure (CPAP) Spinal stenosis Surgical History Hx of hernia repair Hx of prostate biopsy Hx of right knee surgery Hx of shoulder surgery Social History household members: spouse, family and other Smoking Status: Never smoker alcohol intake: current Smoking Status: Never smoker alcohol intake frequency: 0-2 drinks per day Substance Use Type: does not use Exam Narrative Exam Narrative: GEN: AOx3 and in mild distress EYES: Pupils are equal, round, and reactive to light and accommodation. Extraoccular muscles are intact bilaterally. There is no subconjunctival hemorrhage or exudate. CHEST: Lungs are clear to auscultation bilaterally and free of wheezes, rales, or rhonchi. Heart rate is regular rhythm, there are no murmurs, clicks, rubs, or gallops. There is no chest wall tenderness. ABD: Abdomen is soft and nontender. There is no guarding or rebound. Bowel sounds are normal in all 4 quadrants. There is no mass or organomegaly. : Blakely catheter in place, clear yellow urine in the tube and Blakely bag, no pain EXT: Full painless ROM of all extremities with no loss of sensation or strength. SKIN: Warm, pink, and dry. No erythema or rash Initial Vital Signs Initial Vital Signs: Vital Signs Temperature 98.1 F 07/27/20 20:44 Pulse Rate 72 07/27/20 20:44 Respiratory Rate 16 07/27/20 20:44 Blood Pressure 162/83 H 07/27/20 20:44 Pulse Oximetry 95 07/27/20 20:44 Course Course Course Narrative: Prior to any intervention the catheter started draining again, it is been re-evaluated and flowing freely over some observation. Return precautions given and questions answered to their apparent satisfaction Vital Signs Vital signs: Vital Signs - 8 hr 07/27/20 20:44 Temperature 98.1 F Pulse Rate 72 Respiratory Rate 16 Blood Pressure 162/83 H Pulse Oximetry 95 Discharge Plan Departure Patient Disposition: Home Clinical Impression: Complication of Blakely catheter Qualifiers: Encounter type: initial encounter Qualified Code(s): T83.9XXA - Unspecified complication of genitourinary prosthetic device, implant and graft, initial encounter Instructions: How to Care for Your Blakely Catheter -- Male Activity Restrictions/Additional Instructions: *You have been diagnosed with [blakely catheter problem, resolved ] *What to do: *Please continue to take your regular medications as directed. [ ] New medication prescriptions sent to your pharmacy: [ ] [ ] New medication written as a paper prescription [ x] No new medications given *Please follow up with your primary care provider in 2-3 days, call for an appointment. Let them know you were seen in the Emergency Department and that we ask that you be seen in follow up. We will electronically transmit a record of today's note if your PCP is in our system *If you do not have a primary care provider please contact the [facility] Resource line at [phone]. They will ask some questions about your medical history and help get you set up with a doctor in the community. *Return to Emergency Department if you should have any new, worsening or concerning symptoms, such as [fever greater than 101 F, shaking chills, worsening pain, persistent vomiting or other bothersome symptoms] Prescriptions: No Action cefdinir 300 mg capsule 300 mg PO BID Qty: 14 RF: 0 losartan 50 mg Tablet 50 mg PO BEDTIME RF: 0 tamsulosin 0.4 mg Capsule,Extended Release 24hr 0.4 mg PO BEDTIME RF: 0 omega-3 fatty acids-fish oil [Fish Oil] 300-1,000 mg Capsule 1 cap PO DAILY RF: 0 cholecalciferol (vitamin D3) [Vitamin D3] 5,000 unit Tablet 5,000 unit PO DAILY RF: 0 carbidopa-levodopa [Rytary] 36.25-145 mg Capsule, Extended Release 3 cap PO TID RF: 0 oxycodone 5 mg tablet 5 mg PO Q3H PRN (Reason: pain) Qty: 60 RF: 0 Referrals: Yue Orona MD [Primary Care Provider] -
--- NOTE | 2020-07-27 22:25 | PC.NURSE ---
His said she emptied his leg bag twice while here in ED waiting room waiting for a bed placement.His blakely is draining yellow urine now.
== END 2020-07-27 23:07 | disposition home or self-care (01) ==
PROVIDERS: Emergency Provider Emergency Medicine; PCP Internal Medicine
DX: T83.9XXA Unspecified complication of genitourinary prosthetic device, implant and graft, initial encounter (principal); R31.9 Hematuria, unspecified
CPT/HCPCS: 99281

== ENCOUNTER 2020-08-04 09:45 | Emergency (ER) | payer MEDICARE, SELFPAY ==
[2017-08-01 16:44] VITALS: BMI 34.8
[2020-08-04 09:53] VITALS: BP 177/88; PULSE 66; RESP 16; TEMP 37.1; O2SAT 97; BMI 32.5
--- NOTE | 2020-08-04 10:27 | PC.NURSE ---
Catheter is draining small amounts of fluid, however not draining the full 500cc that is in his bladder. He is uncomfortable and in pain. I tried to flush with 30cc of sterile water and was unable to draw back fluid or urine. I then deflated the balloon to try and reposition it. Immediately upon deflating balloon, the catheter quickly began draining large amounts of urine.
--- NOTE | 2020-08-04 10:55 | ED.MALEGU ---
HPI - Male Genitourinary General Chief complaint: Urogenital-Male Stated complaint: blocked catheter Time Seen by Provider: 08/04/20 10:42 History of Present Illness HPI Narrative: This is a 75-year-old male who comes with urinary catheter which is not draining. Patient has had multiple issues in the past. He is having increasing suprapubic pain. He did have procedure yesterday with his urologist is supposed to follow up today at 3:00 p.m.. Patient denies any fevers or chills. No nausea or vomiting. No issues with bowel movements. Patient does have a known history of Parkinson's. Related Data Home Medications Medication Instructions Recorded Confirmed carbidopa ER 36.25 mg-levodopa 145 3 cap PO TID 07/25/17 05/24/20 mg capsule,extended release (Rytary) cholecalciferol (vitamin D3) 125 5,000 unit PO DAILY 07/25/17 05/24/20 mcg (5,000 unit) tablet (Vitamin D3) losartan 50 mg tablet 50 mg PO BEDTIME 07/25/17 05/24/20 omega-3 fatty acids-fish oil 300 1 cap PO DAILY 07/25/17 05/24/20 mg-1,000 mg capsule (Fish Oil) tamsulosin 0.4 mg capsule 0.4 mg PO BEDTIME 07/25/17 05/24/20 Previous Rx's Medication Instructions Recorded oxycodone 5 mg tablet 5 mg PO Q3H PRN #60 tab 08/06/17 cefdinir 300 mg capsule 300 mg PO BID #14 cap 05/24/20 Allergies Allergy/AdvReac Type Severity Reaction Status Date / Time No Known Drug Allergies Allergy Verified 05/24/20 11:42 Review of Systems Review of Systems ROS Unobtainable: All systems reviewed & are unremarkable except as noted in HPI and below Patient History Medical History Arthritis Basal cell carcinoma (BCC) Cervical radiculopathy Elevated PSA Heart murmur History of bladder stone HTN (hypertension) Intermittent tremor Paresthesias Parkinson's disease Skin cancer Sleep apnea with use of continuous positive airway pressure (CPAP) Spinal stenosis Surgical History Hx of hernia repair Hx of prostate biopsy Hx of right knee surgery Hx of shoulder surgery Social History household members: spouse, family and other Smoking Status: Never smoker alcohol intake: current Smoking Status: Never smoker alcohol intake frequency: 0-2 drinks per day Substance Use Type: does not use Exam Narrative Exam Narrative: GENERAL: Alert and oriented x three, Well-nourished male in mild distress. HEENT: Head normocephalic, atraumatic, EOMI, pupils reactive, face symmetric, moist mucous membranes NECK: Supple, full range of motion CARDIOVASCULAR: Regular rate and rhythm without murmurs, rubs or gallops. RESPIRATORY: Breath sounds equal bilaterally, no wheezes rales or rhonchi. ABDOMEN: Soft, nontender. Normoactive bowel sounds all 4 quadrants. No guarding or rebound, rigidity, no mass : No CVA tenderness. Patient has catheter in place which is currently draining yellow urine. Nursing had flushed it prior to my evaluation. EXTREMITIES: Normal range of motion, no clubbing or edema. Neurovascularly intact NEUROLOGICAL: Cranial nerves II through XII grossly intact. Moving all extremities SKIN: Warm, dry, no petechiae, no rashes or lesions. Initial Vital Signs Initial Vital Signs: Vital Signs Temperature 98.7 F 08/04/20 09:53 Pulse Rate 66 08/04/20 09:53 Respiratory Rate 16 08/04/20 09:53 Blood Pressure 177/88 H 08/04/20 09:53 Pulse Oximetry 97 08/04/20 09:53 Course Vital Signs Vital signs: Vital Signs - 8 hr 08/04/20 09:53 Temperature 98.7 F Pulse Rate 66 Respiratory Rate 16 Blood Pressure 177/88 H Pulse Oximetry 97 MDM - Male Genitourinary MDM Narrative Medical decision making narrative: Patient's Berger catheter, Berger balloon was deflated. Patient immediately had urine out. Berger catheter was readjusted balloon was reinflated and patient had drainage of his urine is much more comfortable. Discharge Plan Departure Patient Disposition: Home Clinical Impression: Blocked urinary catheter Instructions: How to Care for Your Berger Catheter -- Male Activity Restrictions/Additional Instructions: Follow up at your urology appointment today. I hope your recovery goes well. Please return if you have any new or worsening symptoms, fevers, recurrent abdominal, back or flank pain, persistent vomiting, if your catheter is not draining urine rehab any other new changes. Prescriptions: No Action cefdinir 300 mg capsule 300 mg PO BID Qty: 14 RF: 0 losartan 50 mg Tablet 50 mg PO BEDTIME RF: 0 tamsulosin 0.4 mg Capsule,Extended Release 24hr 0.4 mg PO BEDTIME RF: 0 omega-3 fatty acids-fish oil [Fish Oil] 300-1,000 mg Capsule 1 cap PO DAILY RF: 0 cholecalciferol (vitamin D3) [Vitamin D3] 5,000 unit Tablet 5,000 unit PO DAILY RF: 0 carbidopa-levodopa [Rytary] 36.25-145 mg Capsule, Extended Release 3 cap PO TID RF: 0 oxycodone 5 mg tablet 5 mg PO Q3H PRN (Reason: pain) Qty: 60 RF: 0 Referrals: Yue Orona MD [Primary Care Provider] -
--- NOTE | 2020-08-04 11:10 | PC.NURSE ---
Patient reports bladder pain and blocked catheter since this morning.
--- NOTE | 2020-08-04 11:10 | PC.NURSE ---
I reinserted the catheter farther into the bladder and reinflated balloon and resecured it to his leg. Catheter is draining, no mor eissues.
== END 2020-08-04 11:12 | disposition home or self-care (01) ==
PROVIDERS: Emergency Provider Emergency Medicine; PCP Internal Medicine
DX: T83.091A Other mechanical complication of indwelling urethral catheter, initial encounter (principal); R10.2 Pelvic and perineal pain
CPT/HCPCS: 51798; 99282

== ENCOUNTER 2022-07-27 17:09 | Emergency (ER) | payer MEDICARE, BC, SELFPAY ==
[2017-08-01 16:44] VITALS: BMI 34.8
[2022-07-27 17:22] VITALS: BP 143/72; PULSE 80; RESP 18; TEMP 37; O2SAT 96; BMI 32.5
--- NOTE | 2022-07-27 18:06 | ED.MALEGU ---
HPI - Male Genitourinary General Chief complaint: Urogenital-Male Stated complaint: urinary issues Time Seen by Provider: 07/27/22 17:59 Source: patient Mode of arrival: Ambulatory History of Present Illness HPI Narrative: Patient is a 77-year-old male history of Parkinson's, recent bladder stones with lithotripsy presenting today with difficulty urinating. He had Berger catheter removed 2 days ago last night he started having difficulty urinating he was quite a bit of pain he is able to urinate some now but not empty his bladder completely. Denies any fever chills or back pain. No your vomiting hearing nursing bladder scan shows greater than 500 cc currently. He is also currently on 50 mg of nitro serotonin once daily as prophylaxis. Urology is in [place]. Related Data Home Medications Medication Instructions Recorded Confirmed carbidopa ER 36.25 mg-levodopa 145 3 cap PO TID 07/25/17 05/24/20 mg capsule,extended release (Rytary) cholecalciferol (vitamin D3) 125 5,000 unit PO DAILY 07/25/17 05/24/20 mcg (5,000 unit) tablet (Vitamin D3) losartan 50 mg tablet 50 mg PO BEDTIME 07/25/17 05/24/20 omega-3 fatty acids-fish oil 300 1 cap PO DAILY 07/25/17 05/24/20 mg-1,000 mg capsule (Fish Oil) tamsulosin 0.4 mg capsule 0.4 mg PO BEDTIME 07/25/17 05/24/20 Previous Rx's Medication Instructions Recorded oxycodone 5 mg tablet 5 mg PO Q3H PRN pain #60 tabs 08/06/17 cefdinir 300 mg capsule 300 mg PO BID #14 caps 05/24/20 cefdinir 300 mg capsule 300 mg PO Q12H #14 caps 07/27/22 Allergies Allergy/AdvReac Type Severity Reaction Status Date / Time No Known Drug Allergies Allergy Verified 07/27/22 17:25 Review of Systems Review of Systems ROS Unobtainable: All systems reviewed & are unremarkable except as noted in HPI and below Patient History Medical History Arthritis Basal cell carcinoma (BCC) Cervical radiculopathy Elevated PSA Heart murmur History of bladder stone HTN (hypertension) Intermittent tremor Paresthesias Parkinson's disease Skin cancer Sleep apnea with use of continuous positive airway pressure (CPAP) Spinal stenosis Surgical History Hx of hernia repair Hx of prostate biopsy Hx of right knee surgery Hx of shoulder surgery Social History household members: spouse, family and other Smoking Status: Never smoker alcohol intake: current Smoking Status: Never smoker alcohol intake frequency: 0-2 drinks per day Substance Use Type: does not use Exam Initial Vital Signs Initial Vital Signs: Vital Signs Temperature 98.6 F 07/27/22 17:22 Pulse Rate 80 07/27/22 17:22 Respiratory Rate 18 07/27/22 17:22 Blood Pressure 143/72 H 07/27/22 17:22 Pulse Oximetry 96 07/27/22 17:22 Oxygen Delivery Method Room Air 07/27/22 17:22 GENERAL: Alert pleasant 77-year-old male and in no acute distress. HEENT: Head atraumatic,EOMI, pupils reactive, face symmetric, moist mucous membranes CARDIOVASCULAR: Regular rate and rhythm without murmurs, rubs or gallops. RESPIRATORY: Breath sounds equal bilaterally, no wheezes rales or rhonchi. ABDOMEN: Soft, nontender. Normoactive bowel sounds all 4 quadrants. No guarding or rebound. : No CVA tenderness EXTREMITIES: Normal range of motion, no clubbing or edema. Neurovascularly intact NEUROLOGICAL: Alert and oriented x4, parkinsonian features SKIN: Warm, dry, no laceration, no petechiae, no rashes or lesions. Course Orders Ordered: ED Orders 07/27/22 18:27 Urinalysis and Microscopic Stat Urine Culture Stat Discontinued Medications Cefdinir (Cefdinir 300 Mg Capsule) 300 mg PO NOW ONE Stop: 07/27/22 19:00 Last Admin: 07/27/22 19:11 Dose: 300 mg Documented By: AT Lidocaine HCl (Lidocaine 2% (Glydo) 6 Ml Gel) 6 ml TOP NOW ONE Stop: 07/27/22 18:12 Last Admin: 07/27/22 18:31 Dose: 6 ml Documented By: KLS Vital Signs Vital signs: Vital Signs - 8 hr 07/27/22 19:20 Pulse Rate 80 Respiratory Rate 18 Blood Pressure 162/79 H Pulse Oximetry 99 Oxygen Delivery Method Room Air MDM - Male Genitourinary Lab Data Labs: Lab Results 07/27/22 Range/Units 18:27 Urine Color Yellow Urine Appearance Turbid Urine pH 8.0 (4.5-8.0) Ur Specific [place] 1.020 (1.000-1.035) Urine Protein 3+ H (Negative) Urine Glucose (UA) Negative (Negative) g/dL Urine Ketones Trace H (NEGATIVE) Urine Occult Blood 3+ H (Negative) Urine Nitrate Positive H (Negative) Urine Bilirubin Negative (NEGATIVE) Urine Urobilinogen 2.0 H (0.2) E.U./dL Ur Leukocyte Esterase 3+ H (NEGATIVE) Urine RBC 10-30/hpf H (0-5/HPF) Urine WBC 30-100/hpf H (0-5/HPF) Ur Squamous Epith Cells 0-1 /hpf (0-5/HPF) Urine Bacteria Moderate (10-30) H (None) Ur Culture Indicated? Specimen cultured MDM Narrative Medical decision making narrative: Patient is 69-year-old male history of Parkinson's with recent bladder stones presenting to urinary retention. He had about 500 cc in his bladder. He is found have a UTI without signs of sepsis now vitals are stable. He is currently on Macrobid prophylactically it looks as though he was recently on cefdinir. reports that he has had resistance I will put him back on cefdinir wait for cultures and sensitivities. Discussed warnings and when to return to ED. However at this time does not need any further workup. Discharge Plan Departure Patient Disposition: Home Clinical Impression: UTI (urinary tract infection) Instructions: DI for Urinary Tract Infection (UTI), DI for Urinary Retention in Men Activity Restrictions/Additional Instructions: *You have been diagnosed with UTI, urinary retention *What to do: At this time stop taking Macrobid start taking cefdinir 300 mg twice daily please monitor for worsening symptoms *Continue to take medications as directed Cefdinir 300 mg twice a day for 7 days *Follow up with your primary care provider in 2-3 days or call [phone] *Return to ER if you should have increasing confusion fever nausea vomiting or any new, worsening or concerning symptoms Prescriptions: New cefdinir 300 mg capsule 300 mg PO Q12H Qty: 14 0RF No Action cefdinir 300 mg capsule 300 mg PO BID Qty: 14 0RF losartan 50 mg Tablet 50 mg PO BEDTIME tamsulosin 0.4 mg Capsule,Extended Release 24hr 0.4 mg PO BEDTIME omega-3 fatty acids-fish oil [Fish Oil] 300-1,000 mg Capsule 1 cap PO DAILY cholecalciferol (vitamin D3) [Vitamin D3] 5,000 unit Tablet 5,000 unit PO DAILY carbidopa-levodopa [Rytary] 36.25-145 mg Capsule, Extended Release 3 cap PO TID oxycodone 5 mg tablet 5 mg PO Q3H PRN (Reason: pain) Qty: 60 0RF Referrals: Yue Orona MD [Primary Care Provider] - Stand Alone Forms: Patient Portal/API
[2022-07-27] MEDS: LIDOCAINE 2% (GLYDO) 6 ML GEL TOP (18:31)
[2022-07-27 18:38] LABS: Appearance Urine UA TURBID; Bilirubin Urine UA NEGATIVE (NEGATIVE); Color Urine UA YELLOW; Glucose Urine UA NEGATIVE (Negative); Ketones Urine UA TRACE (NEGATIVE); Leukocyte Esterase Urine UA 3+ (NEGATIVE); Nitrite Urine UA POSITIVE (Negative); Occult Blood Urine UA 3+ (Negative); Protein Urine UA 3+ (Negative)
--- NOTE | 2022-07-27 18:39 | PC.NURSE ---
has been strait-cathing
[2022-07-27 18:47] LABS: Bacteria Urine Moderate (10-30); Culture Indicated Urine Specimen Cultured; RBC Urine 10-30/HPF (0-5/HPF); Squamous Epithelial Cell Urine 0-1 /HPF (0-5/HPF); WBC Urine 30-100/HPF (0-5/HPF)
[2022-07-27] MEDS: CEFDINIR 300 MG CAPSULE PO (19:11)
[2022-07-27 19:20] VITALS: BP 162/79; PULSE 80; RESP 18; O2SAT 99
== END 2022-07-27 19:20 | disposition home or self-care (01) ==
PROVIDERS: Emergency Provider Emergency Medicine; PCP Internal Medicine
DX: N39.0 Urinary tract infection, site not specified (principal)
CPT/HCPCS: 51798; 81001; 87086; 99283; 99284

== ENCOUNTER 2022-08-03 01:46 | Emergency (ER) | payer MEDICARE, BC, SELFPAY ==
[2017-08-01 16:44] VITALS: BMI 34.8
--- NOTE | 2022-08-03 01:53 | ED.GENADULT ---
HPI - General Adult General Chief complaint: Urogenital-Male Stated complaint: Possible clot in catheter Time Seen by Provider: 08/03/22 01:53 History of Present Illness HPI narrative: 77M with history of urinary retention, bladder stones and relatively recent lithotripsy in [place] presents with his in the chief complaint of a Blakely catheter problem. Had his catheter replaced most recently about 1 week ago and been doing fine unwell but today his states that she had some difficulty flushing and there were some clots. He is had decreased urinary output and complains only of a small amount of suprapubic pressure. He denies any significant pain. He has no fever or chills and denies systemic complaints such as nausea, vomiting, weakness, dizziness or lightheadedness. Related Data Home Medications Medication Instructions Recorded Confirmed carbidopa ER 36.25 mg-levodopa 145 3 cap PO TID 07/25/17 05/24/20 mg capsule,extended release (Rytary) cholecalciferol (vitamin D3) 125 5,000 unit PO DAILY 07/25/17 05/24/20 mcg (5,000 unit) tablet (Vitamin D3) losartan 50 mg tablet 50 mg PO BEDTIME 07/25/17 05/24/20 omega-3 fatty acids-fish oil 300 1 cap PO DAILY 07/25/17 05/24/20 mg-1,000 mg capsule (Fish Oil) tamsulosin 0.4 mg capsule 0.4 mg PO BEDTIME 07/25/17 05/24/20 Previous Rx's Medication Instructions Recorded oxycodone 5 mg tablet 5 mg PO Q3H PRN pain #60 tabs 08/06/17 cefdinir 300 mg capsule 300 mg PO BID #14 caps 05/24/20 cefdinir 300 mg capsule 300 mg PO Q12H #14 caps 07/27/22 Allergies Allergy/AdvReac Type Severity Reaction Status Date / Time No Known Drug Allergies Allergy Verified 07/27/22 17:25 Review of Systems Review of Systems Narrative: GENERAL: Denies chills, fatigue, malaise, fever, sweats. HEENT: Denies sinus pain, ear pain, sore throat, difficulty swallowing, dizziness. RESPIRATORY: Denies dyspnea, cough, wheezing, hemoptysis, sputum. CARDIOVASCULAR: Denies chest pain, palpitations, orthopnea, edema, GASTROINTESTINAL: Denies nausea, vomiting, abdominal pain, diarrhea, constipation, melena. : See HPI MUSCULOSKELETAL: denies weakness, joint pain, or bony pain SKIN: Denies rash, skin lesions, or other NEUROLOGIC: Denies weakness, headache, numbness, change in speech, confusion, seizures, incoordination. PSYCHIATRIC: No concerning psychosocial issues. 12 point review of systems is negative except for those stated above Patient History Medical History Arthritis Basal cell carcinoma (BCC) Cervical radiculopathy Elevated PSA Heart murmur History of bladder stone HTN (hypertension) Intermittent tremor Paresthesias Parkinson's disease Skin cancer Sleep apnea with use of continuous positive airway pressure (CPAP) Spinal stenosis Surgical History Hx of hernia repair Hx of prostate biopsy Hx of right knee surgery Hx of shoulder surgery Social History household members: spouse, family and other Smoking Status: Never smoker alcohol intake: current Smoking Status: Never smoker alcohol intake frequency: 0-2 drinks per day Substance Use Type: does not use Exam Narrative Exam Narrative: GEN: AOx3 and in mild distress EYES: Pupils are equal, round, and reactive to light and accommodation. Extraoccular muscles are intact bilaterally. There is no subconjunctival hemorrhage or exudate. CHEST: Lungs are clear to auscultation bilaterally and free of wheezes, rales, or rhonchi. Heart rate is regular rhythm, there are no murmurs, clicks, rubs, or gallops. There is no chest wall tenderness. ABD: Abdomen is soft and nontender. There is no guarding or rebound. Bowel sounds are normal in all 4 quadrants. There is no mass or organomegaly. : blakely in place, urine in bag is minimally pink tinged. NO significant clots EXT: Full painless ROM of all extremities with no loss of sensation or strength. SKIN: Warm, pink, and dry. No erythema or rash Initial Vital Signs Initial Vital Signs: Vital Signs Pulse Rate 52 L 08/03/22 01:56 Respiratory Rate 18 08/03/22 01:56 Blood Pressure 178/92 H 08/03/22 01:56 Pulse Oximetry 96 08/03/22 01:56 Oxygen Delivery Method Room Air 08/03/22 01:56 Course Vital Signs Vital signs: Vital Signs - 8 hr 08/03/22 01:56 08/03/22 02:03 Temperature 98.3 F Pulse Rate 52 L Respiratory Rate 18 Blood Pressure 178/92 H Pulse Oximetry 96 Oxygen Delivery Method Room Air Medical Decision Making MDM Narrative Medical decision making narrative: [77] year old patient presents with catheter problem Multiple etiologies for patient's symptoms considered including, but not limited to: [clot vs. dysfunctional cath vs. other] Prior Charts reviewed in our EMR Primary Historian: patient Patient's symptoms improved over duration of stay with above-stated therapies. Findings and discharge diagnosis discussed with patient/family followed by verbalization of understanding Return precautions discussed with patient/family whom verbalize understanding of diagnosis and plan Discharge Plan Departure Patient Disposition: Home Clinical Impression: Blakely catheter problem Instructions: How to Care for Your Blakely Catheter -- Male Activity Restrictions/Additional Instructions: There is no evidence of an emergent or life threatening illness at this time, but follow up with your doctor in 1-2 days is recommended nonetheless to continue to rule out serious underlying causes of your symptoms. Please call the office for an appointment. Please return to the Emergency Department for any worsening or persistent symptoms. Please take medications as directed. Prescriptions: No Action cefdinir 300 mg capsule 300 mg PO BID Qty: 14 0RF cefdinir 300 mg capsule 300 mg PO Q12H Qty: 14 0RF losartan 50 mg Tablet 50 mg PO BEDTIME tamsulosin 0.4 mg Capsule,Extended Release 24hr 0.4 mg PO BEDTIME omega-3 fatty acids-fish oil [Fish Oil] 300-1,000 mg Capsule 1 cap PO DAILY cholecalciferol (vitamin D3) [Vitamin D3] 5,000 unit Tablet 5,000 unit PO DAILY carbidopa-levodopa [Rytary] 36.25-145 mg Capsule, Extended Release 3 cap PO TID oxycodone 5 mg tablet 5 mg PO Q3H PRN (Reason: pain) Qty: 60 0RF Referrals: Yue Orona MD [Primary Care Provider] - Stand Alone Forms: Patient Portal/API
[2022-08-03 01:56] VITALS: BP 178/92; PULSE 52; RESP 18; O2SAT 96; BMI 32.5
[2022-08-03 02:03] VITALS: TEMP 36.8
[2022-08-03 02:30] VITALS: BP 159/80; PULSE 54; RESP 18; O2SAT 94
== END 2022-08-03 02:30 | disposition home or self-care (01) ==
PROVIDERS: Emergency Provider Emergency Medicine; PCP Internal Medicine
DX: T83.9XXA Unspecified complication of genitourinary prosthetic device, implant and graft, initial encounter (principal)
CPT/HCPCS: 99281

== ENCOUNTER 2023-02-15 11:38 | Emergency (ER) | payer MEDICARE, BC, SELFPAY ==
[2017-08-01 16:44] VITALS: BMI 34.8
[2023-02-15 11:53] VITALS: BP 159/86; PULSE 62; RESP 16; TEMP 36.8; O2SAT 93; BMI 32.5
--- NOTE | 2023-02-15 11:56 | DI.RAD.S_ITS ---
PROCEDURE: XR CHEST 2V INDICATIONS: cough/sob TECHNIQUE: 2 views of the chest were acquired. COMPARISON: None. FINDINGS: Surgical changes and devices: None. Lungs and pleura: Mild diffuse reticulonodular pulmonary opacity. No pleural effusions or pneumothorax. Mediastinum: Mediastinal contours are normal. Heart size is normal. Bones and chest wall: No suspicious bony abnormalities. Soft tissues appear unremarkable. IMPRESSION: Mild atypical pneumonia. Dictated by: Meredith Galindo M.D. on 02/15/2023 at 12:39 Approved by: Meredith Galindo M.D. on 02/15/2023 at 12:39
[2023-02-15 13:32] LABS: Influenza A - CEPHEID Flu A NEGATIVE (NEGATIVE); Influenza B - CEPHEID Flu B NEGATIVE (NEGATIVE); Respiratory Syncytial Virus Negative (Negative)
[2023-02-15 13:38] LABS: COVID-19 CEPHEID 4-PLEX PCR Negative (Negative)
[2023-02-15 16:45] VITALS: BP 157/73; PULSE 63; RESP 18; O2SAT 95
--- NOTE | 2023-02-15 16:50 | ED.GENADULT ---
HPI - General Adult General Chief complaint: Upper Respiratory Symptoms Stated complaint: poss pneumonia Time Seen by Provider: 02/15/23 16:50 Source: patient Mode of arrival: Ambulatory History of Present Illness HPI narrative: 77-year-old male with history of Parkinson's disease presents with a concern for pneumonia. Patient's recently had infection and was treated with oral doxycycline last week. Patient has developed cough which has been nonproductive, some wheezing that is sometimes audible, no chest pain but has felt a little short of breath, no fevers. Patient states no nasal congestion that is new, no sore throat. Nonproductive cough. No nausea and no vomiting, no other GI or urinary symptoms. No new swelling in extremities. Patient denies any allergies to medications. No tobacco, alcohol or illicit. Related Data Home Medications Medication Instructions Recorded Confirmed carbidopa ER 36.25 mg-levodopa 145 3 cap PO TID 07/25/17 05/24/20 mg capsule,extended release (Rytary) cholecalciferol (vitamin D3) 125 5,000 unit PO DAILY 07/25/17 05/24/20 mcg (5,000 unit) tablet (Vitamin D3) losartan 50 mg tablet 50 mg PO BEDTIME 07/25/17 05/24/20 omega-3 fatty acids-fish oil 300 1 cap PO DAILY 07/25/17 05/24/20 mg-1,000 mg capsule (Fish Oil) tamsulosin 0.4 mg capsule 0.4 mg PO BEDTIME 07/25/17 05/24/20 Previous Rx's Medication Instructions Recorded oxycodone 5 mg tablet 5 mg PO Q3H PRN pain #60 tabs 08/06/17 cefdinir 300 mg capsule 300 mg PO BID #14 caps 05/24/20 cefdinir 300 mg capsule 300 mg PO Q12H #14 caps 07/27/22 doxycycline hyclate 100 mg tablet 100 mg PO BID #10 tabs 02/15/23 Allergies Allergy/AdvReac Type Severity Reaction Status Date / Time No Known Drug Allergies Allergy Verified 07/27/22 17:25 Review of Systems Review of Systems ROS Unobtainable: All systems reviewed & are unremarkable except as noted in HPI and below Patient History Medical History Basal cell carcinoma (BCC) History of bladder stone Heart murmur Skin cancer Paresthesias Sleep apnea with use of continuous positive airway pressure (CPAP) HTN (hypertension) Elevated PSA Arthritis Intermittent tremor Spinal stenosis Cervical radiculopathy Parkinson's disease Surgical History Hx of shoulder surgery Hx of prostate biopsy Hx of right knee surgery Hx of hernia repair Social History household members: spouse, family and other Smoking Status: Never smoker alcohol intake: current Smoking Status: Never smoker alcohol intake frequency: 0-2 drinks per day Substance Use Type: does not use Exam Narrative Exam Narrative: GENERAL: Alert and oriented x three, male in mild distress HEENT: Head normocephalic, atraumatic, EOMI, pupils reactive, face symmetric, moist mucous membranes NECK: Supple, full range of motion CARDIOVASCULAR: Regular rate and rhythm without murmurs, rubs or gallops. RESPIRATORY: Breath sounds equal bilaterally, very mild wheeze left base, no rhonchi, no crackles, no rales. No tachypnea, no accessory muscle use. ABDOMEN: Soft, nontender. Normoactive bowel sounds all 4 quadrants. No guarding or rebound, rigidity, no mass : No CVA tenderness EXTREMITIES: Normal range of motion, no clubbing or edema. Neurovascularly intact NEUROLOGICAL: Cranial nerves II through XII grossly intact. Moving all extremities. SKIN: Warm, dry, no petechiae, no rashes or lesions. Initial Vital Signs Initial Vital Signs: Vital Signs Temperature 98.2 F 02/15/23 11:53 Pulse Rate 62 02/15/23 11:53 Respiratory Rate 16 02/15/23 11:53 Blood Pressure 159/86 H 02/15/23 11:53 Pulse Oximetry 93 02/15/23 11:53 Oxygen Delivery Method Room Air 02/15/23 11:53 Course Orders Ordered: ED Orders 02/15/23 11:56 XR chest 2V Stat 02/15/23 11:58 Covid-19 + FLU A/B + RSV - PCR Stat Vital Signs Vital signs: Vital Signs - 8 hr 02/15/23 11:53 02/15/23 16:45 Temperature 98.2 F Pulse Rate 62 63 Respiratory Rate 16 18 Blood Pressure 159/86 H 157/73 H Pulse Oximetry 93 95 Oxygen Delivery Method Room Air Medical Decision Making Lab Data Labs: Lab Results 02/15/23 Range/Units 11:58 SARS-CoV-2 (PCR) Negative (Negative) Influenza A (RT-PCR) Flu a negative (NEGATIVE) Influenza B (RT-PCR) Flu b negative (NEGATIVE) RSV (PCR) Negative (Negative) Imaging Data Chest x-ray: Radiologist's Impression: [address] [address] XRay Report Signed Patient: Robles Chavez MR#: [id number] : 1945 Acct:[id number] Age/Sex: 77 / M Date of Service: 02/15/23 Loc: ED Accession Number: [id number] Procedure: XR chest 2V Ordering Provider: Deirdre Gonzalez D.O. PROCEDURE: XR CHEST 2V INDICATIONS: cough/sob TECHNIQUE: 2 views of the chest were acquired. COMPARISON: None. FINDINGS: Surgical changes and devices: None. Lungs and pleura: Mild diffuse reticulonodular pulmonary opacity. No pleural effusions or pneumothorax. Mediastinum: Mediastinal contours are normal. Heart size is normal. Bones and chest wall: No suspicious bony abnormalities. Soft tissues appear unremarkable. IMPRESSION: Mild atypical pneumonia. Dictated by: Meredith Galindo M.D. on 02/15/2023 at 12:39 Approved by: Meredith Galindo M.D. on 02/15/2023 at 12:39 [facility] Narrative Medical decision making narrative: Overall well-appearing male, afebrile, O2 has been appropriate no hypoxia slightly hypertensive no tachycardia patient does not appear septic. Does not have any other complaints make me highly suspicious for other source. Patient has some mild wheeze at the left base, chest x-ray shows mild atypical pneumonia. Clinically appears to have pneumonia on exam. COVID/influenza/RSV is negative. Chest x-ray positive for mild atypical pneumonia. Patient has clinical symptoms consistent. Discharge Plan Departure Patient Disposition: Home Clinical Impression: Pneumonia Activity Restrictions/Additional Instructions: Your COVID/influenza/RSV swab is negative, your chest x-ray does show some changes consistent with pneumonia. Please take oral antibiotics until completed. Prescription sent to [facility] in [place]. Please return for fevers, new or worsening chest pain, shortness of breath, lightheadedness or passing out, new swelling of extremities or other new or concerning changes. Prescriptions: New doxycycline hyclate 100 mg tablet 100 mg PO BID Qty: 10 0RF No Action cefdinir 300 mg capsule 300 mg PO BID Qty: 14 0RF cefdinir 300 mg capsule 300 mg PO Q12H Qty: 14 0RF losartan 50 mg Tablet 50 mg PO BEDTIME tamsulosin 0.4 mg Capsule,Extended Release 24hr 0.4 mg PO BEDTIME omega-3 fatty acids-fish oil [Fish Oil] 300-1,000 mg Capsule 1 cap PO DAILY cholecalciferol (vitamin D3) [Vitamin D3] 5,000 unit Tablet 5,000 unit PO DAILY carbidopa-levodopa [Rytary] 36.25-145 mg Capsule, Extended Release 3 cap PO TID oxycodone 5 mg tablet 5 mg PO Q3H PRN (Reason: pain) Qty: 60 0RF Referrals: Yue Orona MD [Primary Care Provider] - Stand Alone Forms: Patient Portal/API
== END 2023-02-15 17:06 | disposition home or self-care (01) ==
PROVIDERS: Emergency Provider Emergency Medicine; PCP Internal Medicine
DX: J18.9 Pneumonia, unspecified organism (principal); Z20.822 Contact with and (suspected) exposure to COVID-19
CPT/HCPCS: 0241U; 71046; 99282; 99283

== ENCOUNTER → 2023-04-18 12:08 | Outpatient (CLI) | payer MEDICARE, BC, SELFPAY ==
[2017-08-01 16:44] VITALS: BMI 34.8
--- NOTE | 2023-04-18 | DI.CT.S_ITS ---
PROCEDURE: CT IVP A/P W/WO INDICATIONS: Hematuria, unspecified TECHNIQUE: Optional 5 mm thick noncontrast images acquired from the diaphragm to the symphysis pubis. After the administration of intravenous contrast, 5 mm thick images acquired from the diaphragm to the symphysis pubis after a 10-minute delay. 2 mm thick coronal and sagittal reformats were then performed of the kidneys and ureters. For radiation dose reduction, the following was used: automated exposure control, adjustment of mA and/or kV according to patient size. COMPARISON: [facility], CT, CT KUB, 06/02/2020, 12:05. FINDINGS: Image quality: Diagnostic. Kidneys and Ureters: Both kidneys are normal in size, without hydronephrosis or nephrolithiasis. No perinephric fat stranding. There is normal bilateral renal enhancement. Renal calyces appear normal in morphology when filled with contrast. Opacified portions of both ureters demonstrate normal caliber. Bilateral renal sinus cysts. Bladder: Bladder wall thickness is normal. No calcified bladder stones. OTHER: Lower chest: Stable 4 mm solid nodule in the right lower lobe compared 2020, statistically benign. Cardiomegaly. Liver: No solid mass. Scattered subcentimeter hypoattenuating lesions, too small to characterize by CT but probably small cysts. Hepatic steatosis. Gallbladder: Cholelithiasis without wall thickening or adjacent fat stranding to suggest acute cholecystitis. Biliary ducts: No biliary dilation. Pancreas: No ductal dilation. Spleen: Size is within normal limits. Adrenal Glands: No adrenal nodules. Stomach and Bowel: Normal colonic caliber, without significant wall thickening. Peritoneum: No abnormal intraperitoneal fluid. No free air. Ventral Wall: No hernia. Ventral hernia repair. Abdominal Nodes: No retroperitoneal or mesenteric adenopathy by size criteria. Vessels: Aorta and inferior vena cava are normal in size. PELVIS: Pelvic Organs: Prostatomegaly. Pelvic Nodes: A few enlarged external iliac chain nodes. For instance, the 1 cm short axis right external iliac chain node (series 4, image 200). Miscellaneous: Small left inguinal hernia containing fat. Bones: Surgical fusion of the lumbosacral spine. Degenerative disc disease. No aggressive osseous abnormality. IMPRESSION: No nephrolithiasis or filling defects within the opacified renal collecting system or ureters. Bladder is incompletely distended with contrast. Consider direct visualization. Enlarged pelvic chain lymph nodes. Unclear etiology, but kayy disease from prostate cancer is not entirely excluded given this appearance. Correlate with PSA and consider prostate MRI if elevated. Dictated by: Randy Og M.D. on 04/18/2023 at 14:41 Approved by: Randy Og M.D. on 04/18/2023 at 14:46
[2023-04-18 12:55] LABS: Estimated Glomerular Filt Rate > 60 mL/min (>60)
== END ==
LOC: CT 12:09
PROVIDERS: Radiology Diagnostic Radiology; PCP Internal Medicine; Referring Provider Student in an Organized Health Care Education/Training Program; Visit Provider Student in an Organized Health Care Education/Training Program
DX: R31.9 Hematuria, unspecified (principal); N40.0 Benign prostatic hyperplasia without lower urinary tract symptoms; R59.0 Localized enlarged lymph nodes; K40.30 Unilateral inguinal hernia, with obstruction, without gangrene, not specified as recurrent; R91.1 Solitary pulmonary nodule; I51.7 Cardiomegaly; K76.0 Fatty (change of) liver, not elsewhere classified; Z98.1 Arthrodesis status
CPT/HCPCS: 36415; 74178; 82565; Q9967

== ENCOUNTER 2023-05-01 08:10 | Emergency (ER) | payer MEDICARE, BC, SELFPAY ==
[2017-08-01 16:44] VITALS: BMI 34.8
[2023-05-01] VITALS (9 sets, daily range): BP systolic 167–225; BP diastolic 83–122; PULSE 52–65; RESP 20–22; TEMP 36.4; O2SAT 92–99; BMI 32.5
[2023-05-01] MEDS: LIDOCAINE 2% (GLYDO) 6 ML GEL TOP (08:30)
--- NOTE | 2023-05-01 08:48 | ED.GENADULT ---
HPI - General Adult General Chief complaint: Urogenital-Male Stated complaint: groin pain, unable to urinate Time Seen by Provider: 05/01/23 08:39 Source: patient and family Mode of arrival: Family Vehicle History of Present Illness HPI narrative: 77-year-old gentleman with a history of large prostate, post TUR, multiple surgeries for bladder stones, Parkinson's disease presents with acute abdominal pain and bladder scan suggests greater than 800 cc in his bladder. A Berger catheter is placed. Patient notes that he has been voiding small amounts continuously. Save noted some blood last week was seen by his urologist on the with cystoscopy attempted however there was too much blood for adequate visualization and he is scheduled to go back in a week. He has not currently on tamsulosin and states that he typically is able to void and feels like he is able to void completely. He has not complaining of urinary tract symptoms, infection symptoms, abdominal pain resolved with Berger catheter placement and bladder drained. Related Data Home Medications Medication Instructions Recorded Confirmed carbidopa ER 36.25 mg-levodopa 145 3 cap PO TID 07/25/17 05/24/20 mg capsule,extended release (Rytary) cholecalciferol (vitamin D3) 125 5,000 unit PO DAILY 07/25/17 05/24/20 mcg (5,000 unit) tablet (Vitamin D3) losartan 50 mg tablet 50 mg PO BEDTIME 07/25/17 05/24/20 omega-3 fatty acids-fish oil 300 1 cap PO DAILY 07/25/17 05/24/20 mg-1,000 mg capsule (Fish Oil) tamsulosin 0.4 mg capsule 0.4 mg PO BEDTIME 07/25/17 05/24/20 Previous Rx's Medication Instructions Recorded oxycodone 5 mg tablet 5 mg PO Q3H PRN pain #60 tabs 08/06/17 cefdinir 300 mg capsule 300 mg PO BID #14 caps 05/24/20 cefdinir 300 mg capsule 300 mg PO Q12H #14 caps 07/27/22 doxycycline hyclate 100 mg tablet 100 mg PO BID #10 tabs 02/15/23 Allergies Allergy/AdvReac Type Severity Reaction Status Date / Time No Known Drug Allergies Allergy Verified 07/27/22 17:25 Review of Systems Review of Systems Narrative: Pertinent positive and negative findings as per HPI Patient History Medical History Basal cell carcinoma (BCC) History of bladder stone Heart murmur Skin cancer Paresthesias Sleep apnea with use of continuous positive airway pressure (CPAP) HTN (hypertension) Elevated PSA Arthritis Intermittent tremor Spinal stenosis Cervical radiculopathy Parkinson's disease Surgical History Hx of shoulder surgery Hx of prostate biopsy Hx of right knee surgery Hx of hernia repair Social History household members: spouse, family and other Smoking Status: Never smoker alcohol intake: current Smoking Status: Never smoker alcohol intake frequency: 0-2 drinks per day Substance Use Type: does not use Exam Initial Vital Signs Initial Vital Signs: Vital Signs Temperature 97.5 F L 05/01/23 08:10 Pulse Rate 65 05/01/23 08:10 Respiratory Rate 22 05/01/23 08:10 Blood Pressure 222/116 H 05/01/23 08:10 Pulse Oximetry 99 05/01/23 08:10 Oxygen Delivery Method Room Air 05/01/23 08:10 General: Alert appropriate in no acute distress Respiratory: Able to speak in full sentences, no obvious respiratory distress Skin: No obvious rashes, warm and dry Neurologic: Grossly intact no obvious asymmetries or abnormalities Psych: appropriate insight and affect, cooperative Berger catheter placed without difficulty, initially draining clear urine now with some blood but no clots appreciated, Course Orders Ordered: ED Orders 05/01/23 08:41 Ictotest Urine Stat Urinalysis and Microscopic Stat Urine Culture Stat 05/01/23 09:37 PSA [Prostate Specific Antigen] Routine Discontinued Medications Lidocaine HCl (Lidocaine 2% (Glydo) 6 Ml Gel) 6 ml TOP NOW ONE Stop: 05/01/23 08:25 Last Admin: 05/01/23 08:30 Dose: 6 ml Documented By: HOMERO Vital Signs Vital signs: Vital Signs - 8 hr 05/01/23 08:10 05/01/23 08:16 05/01/23 08:17 Temperature 97.5 F L Pulse Rate 65 Respiratory Rate 22 Blood Pressure 222/116 H 225/122 H Pulse Oximetry 99 94 Oxygen Delivery Method Room Air 05/01/23 08:17 05/01/23 08:18 05/01/23 08:18 Temperature Pulse Rate 64 64 Respiratory Rate Blood Pressure 220/109 H Pulse Oximetry 93 95 Oxygen Delivery Method Room Air 05/01/23 08:19 05/01/23 08:19 05/01/23 08:30 Temperature Pulse Rate 63 61 Respiratory Rate Blood Pressure 222/116 H Pulse Oximetry 95 94 Oxygen Delivery Method 05/01/23 09:00 05/01/23 09:08 05/01/23 09:08 Temperature Pulse Rate 55 L 54 L Respiratory Rate Blood Pressure 167/83 H Pulse Oximetry 93 92 Oxygen Delivery Method Room Air Medical Decision Making Lab Data Labs: Lab Results 05/01/23 Range/Units 08:41 Urine Color Red Urine Appearance Sl cloudy Urine pH 7.0 (4.5-8.0) Ur Specific [place] <=1.005 (1.000-1.035) Urine Protein 2+ H (Negative) Urine Glucose (UA) Negative (Negative) g/dL Urine Ketones Negative (NEGATIVE) Urine Occult Blood 3+ H (Negative) Urine Nitrate Positive H (Negative) Urine Bilirubin 1+ H (NEGATIVE) Ur Bilirubin Confirm Negative (Negative) Urine Urobilinogen 0.2 (0.2) E.U./dL Ur Leukocyte Esterase 2+ H (NEGATIVE) Urine RBC >100/hpf H (0-5/HPF) Urine WBC 30-100/hpf H (0-5/HPF) Ur Squamous Epith Cells 0-1 /hpf (0-5/HPF) Urine Bacteria None seen (None) Ur Culture Indicated? Specimen cultured Vol Urine Centrifuged 10ml (spun) MDM Narrative Medical decision making narrative: CC: Abdominal pain Complicating co-morbidities: Prior TUR, recent hematuria seen by Urology, history of bladder stones, Parkinson's disease Data collected from: patient, Differential considered: Acute urinary retention, infection, recurrent bladder stone Exam documented above, pertinent findings include: Abdominal pain resolved with placement of Berger catheter Lab Test results independently reviewed as above. Pertinent findings: Urinalysis is ordered Patient is scheduled for a PSA to be drawn today, this is facilitated in the emergency department Treatments: Berger catheter placement, 880 cc comes out Re-evaluations: Feeling much better. Leg bag is in place Discussion: 77-year-old gentleman with acute urinary retention. Berger catheter is placed. He is aware of home care for Berger catheter. Leg bag is given. Will ask him to contact his urology office to let them know the events of today and placement of Berger catheter. We did discuss his urinalysis. Given the essentially exact same findings in July of 2022 with no growth, with shared decision-making we opted to not start any antibiotics today. If there is evidence of urinary tract infection we will contact him with appropriate antibiotics. In the meantime with Berger drainage of the bladder I suspect that infection is not going to be an issue. Follow up is already scheduled for a week. Reviewed signs and symptoms of infection and reasons to return to the ER. Questions are answered and patient is safe for discharge Discharge Plan Departure Patient Disposition: Home Clinical Impression: Acute retention of urine Instructions: DI for Urinary Retention in Men Activity Restrictions/Additional Instructions: Thank you for coming in today You had 880 cc of urine in your bladder today. A Berger catheter was placed. You can use the leg bag during the day, the larger bag at night. Your urine has been sent to the lab. We will contact you if antibiotics are required Please contact your urologist a and let them know that you had acute urinary retention and a Berger catheter in place. If you find that you are getting worse or develop any new symptoms, please feel free to return to the emergency department for further evaluation. Prescriptions: No Action cefdinir 300 mg capsule 300 mg PO BID Qty: 14 0RF cefdinir 300 mg capsule 300 mg PO Q12H Qty: 14 0RF doxycycline hyclate 100 mg tablet 100 mg PO BID Qty: 10 0RF losartan 50 mg Tablet 50 mg PO BEDTIME tamsulosin 0.4 mg Capsule,Extended Release 24hr 0.4 mg PO BEDTIME omega-3 fatty acids-fish oil [Fish Oil] 300-1,000 mg Capsule 1 cap PO DAILY cholecalciferol (vitamin D3) [Vitamin D3] 5,000 unit Tablet 5,000 unit PO DAILY carbidopa-levodopa [Rytary] 36.25-145 mg Capsule, Extended Release 3 cap PO TID oxycodone 5 mg tablet 5 mg PO Q3H PRN (Reason: pain) Qty: 60 0RF Referrals: Yue Orona MD [Primary Care Provider] - Stand Alone Forms: Patient Portal/API
[2023-05-01 09:01] LABS: Appearance Urine UA SL CLOUDY; Bilirubin Urine UA 1+ (NEGATIVE); Color Urine UA RED; Glucose Urine UA NEGATIVE (Negative); Ketones Urine UA NEGATIVE (NEGATIVE); Leukocyte Esterase Urine UA 2+ (NEGATIVE); Nitrite Urine UA POSITIVE (Negative); Occult Blood Urine UA 3+ (Negative); Protein Urine UA 2+ (Negative); Specific Gravity Urine UA <=1.005 (1.000-1.035); Urobilinogen Urine UA 0.2 E.U./dL (0.2)
[2023-05-01 09:07] LABS: Bacteria Urine None Seen; Culture Indicated Urine Specimen Cultured; RBC Urine >100/HPF (0-5/HPF); Squamous Epithelial Cell Urine 0-1 /HPF (0-5/HPF); Urine Volume 10mL (spun); WBC Urine 30-100/HPF (0-5/HPF)
[2023-05-01 09:10] LABS: Ictotest Urine Negative (Negative)
[2023-05-01 10:29] LABS: Prostate Specific Antigen 24.3 ng/mL (0.10-4.00)
[2023-05-03 08:50] LABS: PSA Free % 21.1 % (.); PSA, Total 22.8 ng/mL (0.0-4.0)
== END 2023-05-01 10:11 | disposition home or self-care (01) ==
PROVIDERS: Emergency Provider Emergency Medicine; PCP Internal Medicine
DX: R33.9 Retention of urine, unspecified (principal)
CPT/HCPCS: 36415; 51702; 51798; 81001; 84153; 84154; 87077; 87086; 87147; 87186; 99283; 99284

== ENCOUNTER → 2023-08-28 17:37 | Outpatient (CLI) | payer MEDICARE, BC, SELFPAY ==
[2017-08-01 16:44] VITALS: BMI 34.8
[2023-08-28 19:26] LABS: Prostate Specific Antigen 17.5 ng/mL (0.10-4.00)
== END ==
PROVIDERS: PCP Internal Medicine; Referring Provider Urology; Visit Provider Urology
DX: R97.20 Elevated prostate specific antigen [PSA] (principal)
CPT/HCPCS: 36415; 84153

== ENCOUNTER 2023-09-14 13:35 | Emergency (ER) | payer MEDICARE, BC, SELFPAY ==
[2017-08-01 16:44] VITALS: BMI 34.8
[2023-09-14 14:01] VITALS: BP 129/67; PULSE 60; RESP 17; TEMP 36.4; O2SAT 99; BMI 32.5
--- NOTE | 2023-09-14 14:07 | ED_ITS ---
HPI - Extremity Problem <Marychuy Wilson PA-C - Last Filed: 09/14/23 17:31> General Chief complaint: Extremity Problem,Nontraumatic Stated complaint: poss spider bite Time Seen by Provider: 09/14/23 13:53 History of Present Illness HPI Narrative: 78-year-old male with a history of Parkinson's normally ambulates with a walker sometimes without presents with his with concern for knee pain and a possible spider bite. They state that for the past day and a half he has been having pain on the outside of his left knee. The noticed some swelling present and a small spot that looked like raw skin or scabbed. and patient state he has had increasing pain and difficulty with weight-bearing and ambulation over the past day and a half. Patient notices that his pain is worse with twisting motions. He denies any recent injury or falls or inciting incident. He has not really been spending time outside around insects or bugs. does state that he falls fairly often and has fallen in the last few months injuring his knees on the concrete in the garage floor noting that he has a lump on the front of his left knee that has been present for weeks--but that the abrasion he had with this healed up fine. Patient also endorses having a fall outside a week ago onto grass when he lost his balance. He denies any recent head injury, hitting his head, loss of consciousness, fevers, chills, redness or heat in the area of the swelling, numbness, tingling of left leg, calf pain, or any other symptoms or concerns. Related Data Home Medications Medication Instructions Recorded Confirmed carbidopa ER 36.25 mg-levodopa 145 3 cap PO TID 07/25/17 05/24/20 mg capsule,extended release (Rytary) cholecalciferol (vitamin D3) 125 5,000 unit PO DAILY 07/25/17 05/24/20 mcg (5,000 unit) tablet (Vitamin D3) losartan 50 mg tablet 50 mg PO BEDTIME 07/25/17 05/24/20 omega-3 fatty acids-fish oil 300 1 cap PO DAILY 07/25/17 05/24/20 mg-1,000 mg capsule (Fish Oil) tamsulosin 0.4 mg capsule 0.4 mg PO BEDTIME 07/25/17 05/24/20 Previous Rx's Medication Instructions Recorded oxycodone 5 mg tablet 5 mg PO Q3H PRN pain #60 tabs 08/06/17 cefdinir 300 mg capsule 300 mg PO BID #14 caps 05/24/20 cefdinir 300 mg capsule 300 mg PO Q12H #14 caps 07/27/22 doxycycline hyclate 100 mg tablet 100 mg PO BID #10 tabs 02/15/23 Allergies Allergy/AdvReac Type Severity Reaction Status Date / Time No Known Drug Allergies Allergy Verified 07/27/22 17:25 Review of Systems <Marychuy Wilson PA-C - Last Filed: 09/14/23 17:31> Review of Systems Narrative: See HPI Patient History <Marychuy Wilson PA-C - Last Filed: 09/14/23 17:31> Medical History Basal cell carcinoma (BCC) History of bladder stone Heart murmur Skin cancer Paresthesias Sleep apnea with use of continuous positive airway pressure (CPAP) HTN (hypertension) Elevated PSA Arthritis Intermittent tremor Spinal stenosis Cervical radiculopathy Parkinson's disease Surgical History Hx of shoulder surgery Hx of prostate biopsy Hx of right knee surgery Hx of hernia repair Social History household members: spouse, family and other Smoking Status: Never smoker alcohol intake: current Smoking Status: Never smoker alcohol intake frequency: 0-2 drinks per day Substance Use Type: does not use Exam <Marychuy Wilson PA-C - Last Filed: 09/14/23 17:31> Narrative Exam Narrative: GENERAL: [78] year old patient appears stated age. Well-developed patient, in mild distress, seated in wheelchair soft-spoken voice. HEAD: Atraumatic. Normocephalic. EYES: Pupils equal round and reactive. Extraocular motions intact. No scleral icterus. No injection or drainage. ENT: Nose without bleeding, purulent drainage. Airway patent. NECK: Trachea midline. CARDIOVASCULAR: Regular rate and rhythm without murmurs, gallops, or rubs. RESPIRATORY: Clear to auscultation. Breath sounds equal bilaterally. No wheezes, rales, or rhonchi. EXTREMITIES: There is mild swelling present of the left lateral knee with associated tenderness at the lateral joint line and just superior to this. No erythema, induration. There is a 1-2 mm area of erythema with broken skin in the center or near the center of the area of swelling, possibly consistent with excoriation or an insect bite. There is no heat present. Patient has some increased pain with passive extension of the knee to near 180?. No pain with flexion. Patient was able to perform active flexion and extension without great difficulty but does have increased pain with extension. Negative anterior and posterior drawer, the does appear to soon be some joint laxity with varus and valgus stress distal pulses intact. No edema or joint tenderness. NEURO: AOx3. SKIN: No rash or erythema of visible areas Initial Vital Signs Initial Vital Signs: Vital Signs Temperature 97.5 F L 09/14/23 14:01 Pulse Rate 60 09/14/23 14:01 Respiratory Rate 17 09/14/23 14:01 Blood Pressure 129/67 09/14/23 14:01 Pulse Oximetry 99 09/14/23 14:01 Oxygen Delivery Method Room Air 09/14/23 14:01 <DO Lawanda Carter Last Filed: 09/14/23 17:38> Initial Vital Signs Initial Vital Signs: Vital Signs Temperature 97.5 F L 09/14/23 14:01 Pulse Rate 60 09/14/23 14:01 Respiratory Rate 17 09/14/23 14:01 Blood Pressure 129/67 09/14/23 14:01 Pulse Oximetry 99 09/14/23 14:01 Oxygen Delivery Method Room Air 09/14/23 14:01 Course <Marychuy Wilson PA-C - Last Filed: 09/14/23 17:31> Orders Ordered: ED Orders 09/14/23 14:05 XR knee LT 3V Stat Vital Signs Vital signs: Vital Signs - 8 hr 09/14/23 14:01 Temperature 97.5 F L Pulse Rate 60 Respiratory Rate 17 Blood Pressure 129/67 Pulse Oximetry 99 Oxygen Delivery Method Room Air <DO Lawanda Carter Last Filed: 09/14/23 17:38> Orders Ordered: ED Orders 09/14/23 14:05 XR knee LT 3V Stat Vital Signs Vital signs: Vital Signs - 8 hr 09/14/23 14:01 Temperature 97.5 F L Pulse Rate 60 Respiratory Rate 17 Blood Pressure 129/67 Pulse Oximetry 99 Oxygen Delivery Method Room Air MDM - Extremity (Nontraumatic) <Marychuy Wilson PA-C - Last Filed: 09/14/23 17:31> Imaging Data Extremity x-ray #1: Radiologist's Impression: [address] [address] XRay Report Signed Patient: Robles Chavez MR#: [id number] : 1945 Acct:[id number] Age/Sex: 78 / M Date of Service: 09/14/23 Loc: ED Accession Number: [id number] Procedure: XR knee LT 3V Ordering Provider: Marychuy Wilson PA-C PROCEDURE: XR KNEE LT 3V 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 COMPARISON: None. FINDINGS: Bones: No fractures or dislocations. Moderate osteoarthritic changes, most pronounced within the medial compartment. No suspicious bony lesions. Soft tissues: Small joint effusion. No suspicious soft tissue calcifications. Chondrocalcinosis. Atherosclerotic vascular calcifications. IMPRESSION: 1. No acute bony abnormality. 2. Small joint effusion. 3. Moderate osteoarthritic changes. 4. Chondrocalcinosis is present. Differential diagnosis includes but is not l imited to hemochromatosis, hyperparathyroidism and CPPD. Dictated by: Henri Chavez M.D. on 09/14/2023 at 16:25 Approved by: Henri Chavez M.D. on 09/14/2023 at 16:26 [facility] Narrative Medical decision making narrative: This is a 78-year-old male with a history of Parkinson's presenting with his with concern for left knee pain on the outside with some associated swelling and a possible bug bite. Exam is not suggestive of bug bite/infection as the etiology of his symptoms/pain. Exam is also not suggestive of a DVT. Suspect that he sustained an overuse injury or injury without realizing it. He does have mild laxity of the joint pain with weight-bearing or walking that is pretty significant at this point. Also tenderness at the lateral joint line. X-rays obtained for further evaluation which show chondrocalcinosis as well as osteoarthritic changes and a small joint effusion. Patient declines pain medication in the emergency department today. He is placed in a 16 in knee brace/immobilizer which he states helps him when he does ambulate in the room prior to discharge, noting that he has not having pain with twisting motion when he is wearing the immobilizer. He is advised to minimize excess weight-bearing or ambulation slow and cautious movements, wear the knee immobilizer as much as possible while he is having his symptoms over the next few days to weeks can use an Alonso wrap at night for compression/support. They are advised regarding RI CE and encouraged he should take Tylenol for pain he has not yet tried anything for pain. He is encouraged to follow up with Orthopedics and that he may benefit from physical therapy. Patient had a prolonged ER stay 2nd to awaiting return of x-ray read by Radiology. Return precautions provided, follow-up plan discussed, all questions answered. Discharge Plan Departure Patient Disposition: Home Clinical Impression: Left knee sprain Qualifiers: Encounter type: initial encounter Involved ligament of knee: unspecified ligament Qualified Code(s): S83.92XA - Sprain of unspecified site of left knee, initial encounter Activity Restrictions/Additional Instructions: *You have been diagnosed with [knee sprain/injury] *What to do: *Please continue to take your regular medications as directed. [ ] New medication prescriptions sent to your pharmacy: [ ] [ ] New medication written as a paper prescription [X] No new medications given *Please follow up with your primary care provider in 2-3 days, call for an appointment. Let them know you were seen in the Emergency Department and that we ask that you be seen in follow up. We will electronically transmit a record of today's note if your PCP is in our system. Your x-ray shows some chondrocalcinosis and osteoarthritic changes as well as a small joint effusion (fluid collection). As we discussed today in the ER I do not think the your swelling in your new pain are due to a bug bite does not appear to be an infectious process. A suspect that you have an injury or some chronic changes to her knee that has been exacerbated by recent activities. And would recommend that you take Tylenol for pain and use an Alonso wrap or knee brace for support, minimize weight-bearing if it is painful for you. And certainly if your symptoms are not improving or if you are worsening strongly encourage you to follow up with Orthopedics. Their contact information is below. We placed you in a knee immobilizer, be cautious with this as it can affect your walking and ability to get in and out of chairs. You can use the Alonso wraps that we gave you for compression and support at night for example or when you are not wearing the knee immobilizer. You should talk to your primary care provider or orthopedics about possibly getting physical therapy especially if you have reduced mobility associated with your knee pain for more than a few days to make sure that your sting able to get around and keeping her strength up. *If you do not have a primary care provider please contact the [facility] Resource line at [phone]. They will ask some questions about your medical history and help get you set up with a doctor in the community. *Return to Emergency Department if you should have any new, worsening or concerning symptoms, such as [fever greater than 101 F, shaking chills, worsening pain, persistent vomiting or other bothersome symptoms] Prescriptions: No Action cefdinir 300 mg capsule 300 mg PO BID Qty: 14 0RF cefdinir 300 mg capsule 300 mg PO Q12H Qty: 14 0RF doxycycline hyclate 100 mg tablet 100 mg PO BID Qty: 10 0RF losartan 50 mg Tablet 50 mg PO BEDTIME tamsulosin 0.4 mg Capsule,Extended Release 24hr 0.4 mg PO BEDTIME omega-3 fatty acids-fish oil [Fish Oil] 300-1,000 mg Capsule 1 cap PO DAILY cholecalciferol (vitamin D3) [Vitamin D3] 5,000 unit Tablet 5,000 unit PO DAILY carbidopa-levodopa [Rytary] 36.25-145 mg Capsule, Extended Release 3 cap PO TID oxycodone 5 mg tablet 5 mg PO Q3H PRN (Reason: pain) Qty: 60 0RF Referrals: Jason Sarmiento MD [Physician] - Yue Orona MD [Primary Care Provider] - Stand Alone Forms: Patient Portal/API ED Sign-out <Braxton Ruiz DO - Last Filed: 09/14/23 17:38> [facility]: Dr Ruiz Co-Sign Statement: I was available for consultation during this patient's emergency department visit. This chart is signed by myself for administrative purposes only. I did not have direct contact with this patient during this visit. They were seen independently by the APC.
[2023-09-14 17:43] VITALS: BP 145/75; PULSE 50; RESP 14; O2SAT 98
== END 2023-09-14 17:44 | disposition home or self-care (01) ==
PROVIDERS: Emergency Provider Student in an Organized Health Care Education/Training Program; PCP Internal Medicine
DX: S83.92XA Sprain of unspecified site of left knee, initial encounter (principal); G20.A1 Parkinson's disease without dyskinesia, without mention of fluctuations
CPT/HCPCS: 73562; 99283

== ENCOUNTER 2024-06-20 14:50 | Emergency (ER) | payer MEDICARE, BC, SELFPAY ==
[2017-08-01 16:44] VITALS: BMI 34.8
[2024-06-20 14:55] VITALS: BP 132/62; PULSE 61; RESP 16; TEMP 36.5; O2SAT 96; BMI 28.5
--- NOTE | 2024-06-20 15:08 | DI.CT.S_ITS ---
PROCEDURE: CT HEAD/BRAIN WO CON INDICATIONS: wheelchair TECHNIQUE: Noncontrast 4.5 mm thick angled axial sections acquired from the foramen magnum to the vertex, with coronal and sagittal reformats. For radiation dose reduction, the following was used: automated exposure control, adjustment of mA and/or kV according to patient size. COMPARISON: [facility], CT, CT HEAD WITHOUT CONTRAST, 12/01/2017, 19:39. [facility], CT, CT CERVICAL SPINE WO CON, 06/20/2024, 15:17. FINDINGS: Image quality: Streak artifact can be seen through the skull base. CSF spaces: Basal cisterns are patent. No extra-axial fluid collections. The ventricles are symmetric in size and shape. Brain: No intracranial bleeds or mass effect. There is cerebral volume loss, with resultant ventricular and sulcal prominence. There are periventricular and deep white matter chronic small vessel ischemic changes. There is intracranial internal carotid artery atherosclerosis. Skull and face: Calvarium and visualized facial bones appear intact, without suspicious lesions. Sinuses: Visualized sinuses and mastoids are clear. IMPRESSION: No acute intracranial hemorrhage is seen. No acute intracranial pathology. To the limits of this noncontrast study, no findings of intracranial masses or mass effect can be seen. Dictated by: Augustine Knott M.D. on 06/20/2024 at 14:38 Approved by: Augustine Knott M.D. on 06/20/2024 at 14:39
--- NOTE | 2024-06-20 15:08 | DI.CT.S_ITS ---
PROCEDURE: CT CERVICAL SPINE WO CON INDICATIONS: Fall TECHNIQUE: Noncontrast 3 mm thick sections acquired from the skull base to the T4 level. Sagittal and coronal reformats were then constructed. For radiation dose reduction, the following was used: automated exposure control, adjustment of mA and/or kV according to patient size. COMPARISON: [facility], CR, XR CERVICAL SPINE 2 OR 3 VIEWS, 03/21/2017, 15:26. [facility], CT, CT HEAD/BRAIN WO CON, 06/20/2024, 15:17. FINDINGS: Image quality: There is artifact associated with the metallic hardware. Artifact from the metallic hardware is reduced by metal reconstruction algorithm. Bones: No fractures or dislocations. Visualized superior ribs are intact. Focal significant degenerative change is seen involving the C1-C2 interface anteriorly. There is at least moderate disc space narrowing seen at the C3-C4 level. There is fusion change seen from C5 through T1. Multiple levels of facet hypertrophy can be seen. Soft tissues: Prevertebral soft tissues are normal in thickness. No paravertebral hematomas. No apical pneumothoraces. Atherosclerotic calcification is noted. IMPRESSION: Negative for acute fracture. Multiple levels of significant degenerative change can be seen. Vertebral body fusion is seen C5 through T1. Dictated by: Augustine Knott M.D. on 06/20/2024 at 14:43 Approved by: Augustine Knott M.D. on 06/20/2024 at 14:45
--- NOTE | 2024-06-20 16:40 | ED.WOUNDLAC ---
HPI - Wound/Laceration <Mary Lopez PA-C - Last Filed: 06/20/24 21:11> General Chief Complaint: Wound/Laceration Stated Complaint: Fall, head injury, no blood thinners Time Seen by Provider: 06/20/24 16:40 Mode of arrival: Wheelchair History of Present Illness HPI narrative: Mr. Chavez is a very pleasant 79-year-old gentleman with a past medical history of Parkinson's disease, hypertension who presents to the emergency department for a laceration above his left eyebrow that occurred because of a fall around 2:30 p.m. today. Pt was home, carrying his pet cat when he accidentally fell forward hitting his head on the wall sustaining a 4 cm laceration above the left eyebrow. He did not lose consciousness, he is not on any blood thinners, he reports that his right knee is also feeling mild pain but otherwise his pain is only where the laceration is. Ambulates independently. Denies any visual disturbance, headache, neck pain, back pain, abdominal pain, chest pain, lightheadedness, dizziness. Bleeding is controlled with direct pressure at this time. Declines Tdap. Related Data Home Medications Medication Instructions Recorded Confirmed carbidopa ER 36.25 mg-levodopa 145 3 cap PO TID 07/25/17 05/24/20 mg capsule,extended release (Rytary) cholecalciferol (vitamin D3) 125 5,000 unit PO DAILY 07/25/17 05/24/20 mcg (5,000 unit) tablet (Vitamin D3) losartan 50 mg tablet 50 mg PO BEDTIME 07/25/17 05/24/20 omega-3 fatty acids-fish oil 300 1 cap PO DAILY 07/25/17 05/24/20 mg-1,000 mg capsule (Fish Oil) tamsulosin 0.4 mg capsule 0.4 mg PO BEDTIME 07/25/17 05/24/20 Previous Rx's Medication Instructions Recorded oxycodone 5 mg tablet 5 mg PO Q3H PRN pain #60 tabs 08/06/17 cefdinir 300 mg capsule 300 mg PO BID #14 caps 05/24/20 cefdinir 300 mg capsule 300 mg PO Q12H #14 caps 07/27/22 doxycycline hyclate 100 mg tablet 100 mg PO BID #10 tabs 02/15/23 Allergies Allergy/AdvReac Type Severity Reaction Status Date / Time No Known Drug Allergies Allergy Verified 07/27/22 17:25 Review of Systems <Mary Lopez PA-C - Last Filed: 06/20/24 21:11> Review of Systems ROS Unobtainable: All systems reviewed & are unremarkable except as noted in HPI and below Patient History <Mary Lopez PA-C - Last Filed: 06/20/24 21:11> Medical History Basal cell carcinoma (BCC) History of bladder stone Heart murmur Skin cancer Paresthesias Sleep apnea with use of continuous positive airway pressure (CPAP) HTN (hypertension) Elevated PSA Arthritis Intermittent tremor Spinal stenosis Cervical radiculopathy Parkinson's disease Surgical History Hx of shoulder surgery Hx of prostate biopsy Hx of right knee surgery Hx of hernia repair Social History household members: spouse, family and other Smoking Status: Never smoker alcohol intake: current Smoking Status: Never smoker alcohol intake frequency: 0-2 drinks per day Exam <Mary Lopez PA-C - Last Filed: 06/20/24 21:11> Narrative Exam Narrative: GENERAL: 79 year old patient appears stated age. Well-developed patient, in no acute distress. HEAD: 4 cm long by 1 cm wide gaping laceration just above the left eyebrow. Bleeding controlled. Normocephalic. EYES: PERRL. Extraocular motions intact. No scleral icterus. No injection or drainage. ENT: Nose without bleeding, purulent drainage. NECK: Trachea midline. Cervical ROM intact. No midline spinal pain. CARDIOVASCULAR: Regular rate and rhythm. RESPIRATORY: ?Nonlabored respirations. ?Speaking in clear, full sentences. ?Clear to auscultation. Breath sounds equal bilaterally. No wheezes, rales, or rhonchi. ? GASTROINTESTINAL: Abdomen soft, non-tender, nondistended. EXTREMITIES: Subjective pain of right knee with range of motion, no open wounds, lower extremities are neurovascularly intact BACK: No midline spinal tenderness NEURO: Alert and oriented, does struggle with his speech and word-finding, helps provide a majority of the history. He does ambulate independently with unsteady gait. SKIN: Facial laceration described above Initial Vital Signs Initial Vital Signs: Vital Signs Temperature 97.7 F 06/20/24 14:55 Pulse Rate 61 06/20/24 14:55 Respiratory Rate 16 06/20/24 14:55 Blood Pressure 132/62 06/20/24 14:55 Pulse Oximetry 96 06/20/24 14:55 Oxygen Delivery Method Room Air 06/20/24 14:55 <Deirdre Gonzalez DO - Last Filed: 06/21/24 07:15> Initial Vital Signs Initial Vital Signs: Vital Signs Temperature 97.7 F 06/20/24 14:55 Pulse Rate 61 06/20/24 14:55 Respiratory Rate 16 06/20/24 14:55 Blood Pressure 132/62 06/20/24 14:55 Pulse Oximetry 96 06/20/24 14:55 Oxygen Delivery Method Room Air 06/20/24 14:55 Procedures <PER Gomez Last Filed: 06/20/24 21:11> Laceration Repair Laceration 1: Time of procedure: 18:00 Site: face Side (If applicable): left Size (cm): 4 Description: linear and irregular Depth: simple, single layer Local Anesthetic: lidocaine 1% and with epi Amount of anesthesia used (mL): 5 Pre-repair: wound explored, irrigated extensively (Cleansed with Betadine) and deep structures intact Skin layer closed with: nylon Skin layer suture size: 5-0 Number of sutures: 7 Technique: simple, interrupted Course <PER Gomez Last Filed: 06/20/24 21:11> Orders Ordered: Discontinued Medications Bacitracin (Bacitracin Oint 0.9 Gm Pckt) 1 applic TOP NOW ONE Stop: 06/20/24 18:25 Last Admin: 06/20/24 18:31 Dose: 1 applic Documented By: ANNABELLE Lidocaine/Epinephrine (Lidocaine 1% W/Epi 10ml) 5 ml INJ INTRA-OP ONE Stop: 06/20/24 17:10 Last Admin: 06/20/24 17:30 Dose: 5 ml Documented By: ANNABELLE Vital Signs Vital signs: Vital Signs - 8 hr 06/20/24 14:55 06/20/24 18:32 Temperature 97.7 F Pulse Rate 61 77 Respiratory Rate 16 20 Blood Pressure 132/62 135/68 Pulse Oximetry 96 98 Oxygen Delivery Method Room Air Room Air <Deirdre Gonzalez DO - Last Filed: 06/21/24 07:15> Orders Ordered: Discontinued Medications Bacitracin (Bacitracin Oint 0.9 Gm Pckt) 1 applic TOP NOW ONE Stop: 06/20/24 18:25 Last Admin: 06/20/24 18:31 Dose: 1 applic Documented By: ANNABELLE Lidocaine/Epinephrine (Lidocaine 1% W/Epi 10ml) 5 ml INJ INTRA-OP ONE Stop: 06/20/24 17:10 Last Admin: 06/20/24 17:30 Dose: 5 ml Documented By: ANNABELLE Vital Signs Vital signs: Vital Signs - 8 hr 06/20/24 14:55 06/20/24 18:32 Temperature 97.7 F Pulse Rate 61 77 Respiratory Rate 16 20 Blood Pressure 132/62 135/68 Pulse Oximetry 96 98 Oxygen Delivery Method Room Air Room Air MDM - Wound/Laceration <Mary Lopez PA-C - Last Filed: 06/20/24 21:11> Medical Records Attestation: I reviewed the patient's medical records. Imaging Data CT scan - head: Radiologist's Impression: PROCEDURE: CT HEAD/BRAIN WO CON INDICATIONS: wheelchair TECHNIQUE: Noncontrast 4.5 mm thick angled axial sections acquired from the foramen magnum to the vertex, with coronal and sagittal reformats. For radiation dose reduction, the following was used: automated exposure control, adjustment of mA and/or kV according to patient size. COMPARISON: [facility], CT, CT HEAD WITHOUT CONTRAST, 12/01/2017, 19:39. [facility], CT, CT CERVICAL SPINE WO CON, 06/20/2024, 15:17. FINDINGS: Image quality: Streak artifact can be seen through the skull base. CSF spaces: Basal cisterns are patent. No extra-axial fluid collections. The ventricles are symmetric in size and shape. Brain: No intracranial bleeds or mass effect. There is cerebral volume loss, with resultant ventricular and sulcal prominence. There are periventricular and deep white matter chronic small vessel ischemic changes. There is intracranial internal carotid artery atherosclerosis. Skull and face: Calvarium and visualized facial bones appear intact, without suspicious lesions. Sinuses: Visualized sinuses and mastoids are clear. IMPRESSION: No acute intracranial hemorrhage is seen. No acute intracranial pathology. To the limits of this noncontrast study, no findings of intracranial masses or mass effect can be seen. Dictated by: Augustine Knott M.D. on 06/20/2024 at 14:38 Approved by: Augustine Knott M.D. on 06/20/2024 at 14:39 CT - cervical spine: Radiologist's Impression: PROCEDURE: CT CERVICAL SPINE WO CON INDICATIONS: Fall TECHNIQUE: Noncontrast 3 mm thick sections acquired from the skull base to the T4 level. Sagittal and coronal reformats were then constructed. For radiation dose reduction, the following was used: automated exposure control, adjustment of mA and/or kV according to patient size. COMPARISON: [facility], CR, XR CERVICAL SPINE 2 OR 3 VIEWS, 03/21/2017, 15:26. [facility], CT, CT HEAD/BRAIN WO CON, 06/20/2024, 15:17. FINDINGS: Image quality: There is artifact associated with the metallic hardware. Artifact from the metallic hardware is reduced by metal reconstruction algorithm. Bones: No fractures or dislocations. Visualized superior ribs are intact. Focal significant degenerative change is seen involving the C1-C2 interface anteriorly. There is at least moderate disc space narrowing seen at the C3-C4 level. There is fusion change seen from C5 through T1. Multiple levels of facet hypertrophy can be seen. Soft tissues: Prevertebral soft tissues are normal in thickness. No paravertebral hematomas. No apical pneumothoraces. Atherosclerotic calcification is noted. IMPRESSION: Negative for acute fracture. Multiple levels of significant degenerative change can be seen. Vertebral body fusion is seen C5 through T1. Dictated by: Augustine Knott M.D. on 06/20/2024 at 14:43 Approved by: Augustine Knott M.D. on 06/20/2024 at 14:45 Right Knee X-Ray: Radiologist's Impression: PROCEDURE: XR KNEE RT 1TO2V INDICATIONS: knee pain TECHNIQUE: 2 views of the knee were acquired. COMPARISON: [facility], CR, XR KNEE LT 3V, 09/14/2023, 14:10. FINDINGS: Bones: No fractures or dislocations. No suspicious bony lesions. Tricompartmental joint space narrowing with associated osteophytosis. Subchondral cystic change without bony deformity of the medial tibiofemoral compartment. Soft tissues: Small joint effusion. No suspicious soft tissue calcifications. Chondrocalcinosis. IMPRESSION: Small knee joint effusion, without displaced fracture. If there remains a high clinical concern for fracture, consider cross-sectional imaging. Moderate to severe tricompartmental osteoarthritis. Dictated by: Randy Og M.D. on 06/20/2024 at 17:24 Approved by: Randy Og M.D. on 06/20/2024 at 17:[address] [facility] Narrative Medical decision making narrative: 79-year-old gentleman with a past medical history of Parkinson's disease, hypertension who presents to the emergency department for a laceration above his left eyebrow that occurred because of a fall around 2:30 p.m. today. Differential diagnosis includes but isn't limited to facial laceration, concussion, intracranial abnormality, right knee sprain, strain, arthritis, etc. On exam patient is in no acute distress, nontoxic appearing, vital signs appropriate. He has a large gaping laceration above his left eyebrow. He has no focal neurologic deficits, he does have Parkinson's disease, he had a mechanical ground level fall. Head and cervical spine CT obtained in triage, we will add on right knee x-ray, patient declines Tdap, agreeable to laceration repair. Knee x-rays show small knee effusion, moderate to severe tricompartmental osteoarthritis. Head CT reveals no acute intracranial pathology. Cervical spine CT negative for fracture. Patient's wound was anesthetized, irrigated extensively and repaired using 7 simple interrupted sutures with good approximation of wound edges. Bleeding controlled. Discussed proper wound care, suture removal in 5 days. All imaging results were printed and provided the patient his . Discussed strict ED return precautions follow up with PCP. They verbalized understanding of all information agreeable with the plan. He is stable for discharge home. Discharge Plan Departure Patient Disposition: Home Clinical Impression: Fall from ground level, Effusion of knee joint right Forehead laceration Qualifiers: Encounter type: initial encounter Qualified Code(s): S01.81XA - Laceration without foreign body of other part of head, initial encounter Instructions: DI for Laceration Repair Activity Restrictions/Additional Instructions: Today you had a laceration to your forehead. We have placed 7 sutures. They need to be removed in 5 days. You may do this in your doctor's office, the [id number], or here if necessary. Please keep the dressing on your wound clean, dry, and intact for the next 24 hours. After this time, you may remove the dressing and gently clean the wound with soap and water, then pat dry. Keep the wound clean and covered. Avoid soaking the wound in any water such as a bath, pool, or the ocean. If you develop any signs of wound infection such as increased redness, pus drainage, streaking redness, or fevers, please return to the ER immediately for evaluation. Once sutures are removed and the wound has healed, apply sunscreen daily to reduce the appearance of scars. Please follow up with your primary care doctor within the next 2-3 days for ER follow-up. (If you do not have a PCP you can call [phone]. ?to schedule an appointment with an [facility] Primary Care Provider) IF YOU DEVELOP ANY NEW OR WORSENING SYMPTOMS, RETURN TO THE ER! Please read the attached instructions, they highlight more specific treatments and interventions for you at home. Thank you for letting me participate in your care, Mary Lopez PA-C Prescriptions: No Action cefdinir 300 mg capsule 300 mg PO BID Qty: 14 0RF cefdinir 300 mg capsule 300 mg PO Q12H Qty: 14 0RF doxycycline hyclate 100 mg tablet 100 mg PO BID Qty: 10 0RF losartan 50 mg Tablet 50 mg PO BEDTIME tamsulosin 0.4 mg Capsule,Extended Release 24hr 0.4 mg PO BEDTIME omega-3 fatty acids-fish oil [Fish Oil] 300-1,000 mg Capsule 1 cap PO DAILY cholecalciferol (vitamin D3) [Vitamin D3] 5,000 unit Tablet 5,000 unit PO DAILY carbidopa-levodopa [Rytary] 36.25-145 mg Capsule, Extended Release 3 cap PO TID oxycodone 5 mg tablet 5 mg PO Q3H PRN (Reason: pain) Qty: 60 0RF Referrals: Yue Orona MD [Primary Care Provider] - Stand Alone Forms: Patient Portal/API/Survey ED Sign-out <Deirdre Gonzalez DO - Last Filed: 06/21/24 07:15> Cosign ED Attending Cosduaneature Attestation: I was immediately available in the department for consultation.
--- NOTE | 2024-06-20 16:56 | DI.RAD.S_ITS ---
PROCEDURE: XR KNEE RT 1TO2V INDICATIONS: knee pain TECHNIQUE: 2 views of the knee were acquired. COMPARISON: [facility], CR, XR KNEE LT 3V, 09/14/2023, 14:10. FINDINGS: Bones: No fractures or dislocations. No suspicious bony lesions. Tricompartmental joint space narrowing with associated osteophytosis. Subchondral cystic change without bony deformity of the medial tibiofemoral compartment. Soft tissues: Small joint effusion. No suspicious soft tissue calcifications. Chondrocalcinosis. IMPRESSION: Small knee joint effusion, without displaced fracture. If there remains a high clinical concern for fracture, consider cross-sectional imaging. Moderate to severe tricompartmental osteoarthritis. Dictated by: Randy Og M.D. on 06/20/2024 at 17:24 Approved by: Randy Og M.D. on 06/20/2024 at 17:25
[2024-06-20] MEDS: LIDOCAINE 1% W/EPI 10ML 5 ML INJ (17:30)
[2024-06-20] MEDS: BACITRACIN OINT 0.9 GM PCKT 1 APPLIC TOP (18:31)
[2024-06-20 18:32] VITALS: BP 135/68; PULSE 77; RESP 20; O2SAT 98
== END 2024-06-20 18:40 | disposition home or self-care (01) ==
PROVIDERS: Emergency Provider Physician Assistant; PCP Internal Medicine
DX: S01.81XA Laceration without foreign body of other part of head, initial encounter (principal); M25.461 Effusion, right knee; W18.30XA Fall on same level, unspecified, initial encounter
CPT/HCPCS: 12013; 70450; 72125; 73560; 99283; 99284

== ENCOUNTER → 2024-10-14 18:42 | Outpatient (CLI) | payer MEDICARE, BC, SELFPAY ==
[2017-08-01 16:44] VITALS: BMI 34.8
--- NOTE | 2024-10-14 18:47 | DI.MRI.S_ITS ---
PROCEDURE: MR KNEE RT WO CON INDICATIONS: KNEE PAIN - right TECHNIQUE: Noncontrast sagittal PD fast spin echo and T2 fast spin echo with fat saturation, sagittal 3-D FLASH with fat saturation; coronal T1 spin echo and PD fast spin echo with fat saturation, and axial PD fast spin echo with fat saturation through the knee. FINDINGS: Image quality: Fair, significant motion artifact in spite of motion reduction sequences.. Menisci: Multidirectional degenerative tear of the anterior horn body junction through posterior horn of the medial meniscus with horizontal cleavage tear component of the posterior horn and severe maceration and attenuation of the meniscal body. The meniscal remnant is severely extruded. Intrasubstance degeneration of the lateral meniscus without discrete tear. Ligaments: Thickening, and increased signal of the anterior and posterior cruciate ligament concerning for chronic scarring and degeneration. No discrete tear. Chronic thickening and scarring of the proximal MCL and fibular collateral ligament, consistent with chronic remodeling. Mild severe insertional tendinosis of the popliteus. The biceps femoris and major posterior lateral supporting structures are otherwise intact. Extensor Mechanism: The quadriceps tendon is intact. Mild insertional tendinosis of the popliteus tendon. The patellar retinacula are intact. Osseous Structures: There is no fracture or dislocation. No suspicious marrow replacing process. Moderate joint effusion. Edema within the articular Hoffa's fat pad, greatest in the intercondylar notch, concerning for impingement. Articular Cartilage: Patellofemoral compartment: Broad full-thickness articular cartilage defects in the medial and lateral patellar facet is. Deep thinning with areas of full- thickness thinning to bone within the inferior trochlea. Medial compartment: Full-thickness articular cartilage loss of the central weight-bearing condyle and tibial plateau with subchondral bone marrow edema and sclerosis. Lateral compartment: Intermediate diffuse articular cartilage thinning in fraying . Other: The visualized muscles and tendons appear normal for age. No Watson's cyst. Normal neurovascular signal. Anterior knee a subcutaneous fat edema. IMPRESSION: 1. Severe osteoarthritis of the medial compartment with broad full-thickness articular cartilage loss and areas of full-thickness articular cartilage loss in the patellofemoral compartment (grade 4). 2. Multidirectional degenerative tearing and maceration of the medial meniscus. 3. Chronic scarring and degeneration of the cruciate ligaments and chronic remodeling of the proximal collateral ligaments without acute tear. Correlate for insufficiency of the cruciate ligaments. 4. Findings concerning for developing insufficiency reaction and fracture without discrete fracture line in the medial compartment. This is deep to areas of complete cartilage loss. Dictated by: Nii Randall M.D. on 10/15/2024 at 9:37 Approved by: Nii Randall M.D. on 10/15/2024 at 9:43
== END ==
LOC: MRI 18:43
PROVIDERS: PCP Internal Medicine; Referring Provider Internal Medicine; Visit Provider Internal Medicine
DX: M23.211 Derangement of anterior horn of medial meniscus due to old tear or injury, right knee (principal); M23.221 Derangement of posterior horn of medial meniscus due to old tear or injury, right knee; M17.11 Unilateral primary osteoarthritis, right knee; M25.561 Pain in right knee
CPT/HCPCS: 73721

== ENCOUNTER 2024-12-25 11:33 | Emergency (ER) | payer MEDICARE, BC, SELFPAY ==
[2017-08-01 16:44] VITALS: BMI 34.8
[2024-12-25 11:45] VITALS: BP 161/112; PULSE 62; RESP 16; TEMP 36.1; O2SAT 96; BMI 29.8
--- NOTE | 2024-12-25 12:19 | ED.MALEGU ---
HPI - Male Genitourinary General Chief complaint: Urogenital-Male Stated complaint: Possible UTI or Bladder infection Time Seen by Provider: 12/25/24 12:17 Source: patient and family Mode of arrival: Wheelchair History of Present Illness HPI Narrative: This is a 79-year-old male presents to the emergency department due to urinary incontinence, dysuria, nausea, and reported lower back pain for the last 2 days. Denies any recent travel or inpatient hospitalizations. Denies any fevers or chills. Denies any chest pain, shortness of breath, abdominal pain, or any other concerning signs or symptoms. Related Data Home Medications ?Medication ?Instructions ?Recorded ?Confirmed carbidopa ER 36.25 mg-levodopa 145 3 cap PO TID 07/25/17 09/25/24 mg capsule,extended release (Rytary) cholecalciferol (vitamin D3) 125 5,000 unit PO DAILY 07/25/17 09/25/24 mcg (5,000 unit) tablet (Vitamin D3) omega-3 fatty acids-fish oil 300 1 cap PO DAILY 07/25/17 09/25/24 mg-1,000 mg capsule (Fish Oil) amlodipine 2.5 mg tablet 2.5 mg PO DAILY 07/08/24 09/25/24 Previous Rx's ?Medication ?Instructions ?Recorded ciprofloxacin HCl 500 mg tablet 500 mg PO BID #10 tabs 12/25/24 Allergies Allergy/AdvReac Type Severity Reaction Status Date / Time No Known Drug Allergies Allergy Verified 09/25/24 15:46 Review of Systems Review of Systems Narrative: GENERAL: Denies chills, fatigue, malaise, fever, sweats. HEENT: Denies sinus pain, ear pain, sore throat, difficulty swallowing, dizziness. RESPIRATORY: Denies dyspnea, cough, wheezing, hemoptysis, sputum. CARDIOVASCULAR: Denies chest pain, palpitations, orthopnea, edema, GASTROINTESTINAL: Reports nausea, denies vomiting, abdominal pain, diarrhea, constipation, melena. : Reports dysuria, frequency, incontinence, denies hematuria, urinary retention. MUSCULOSKELETAL: denies weakness, joint pain, or bony pain SKIN: Denies rash, skin lesions, or other NEUROLOGIC: Denies weakness, headache, numbness, change in speech, confusion, seizures, incoordination. PSYCHIATRIC: No concerning psychosocial issues. 12 point review of systems is negative except for those stated above Patient History Medical History (Updated 12/25/24 @ 12:35 by Aaron Faulkner PA-C) Primary osteoarthritis of right knee Basal cell carcinoma (BCC) History of bladder stone Heart murmur Skin cancer Paresthesias Sleep apnea with use of continuous positive airway pressure (CPAP) HTN (hypertension) Elevated PSA Arthritis Intermittent tremor Spinal stenosis Cervical radiculopathy Parkinson's disease Surgical History Hx of shoulder surgery Hx of prostate biopsy Hx of right knee surgery Hx of hernia repair Social History household members: spouse, family and other alcohol intake: current alcohol intake frequency: 0-2 drinks per day Exam Narrative Exam Narrative: GENERAL: Well-developed patient, in mild distress. HEAD: Atraumatic. Normocephalic. EYES: Pupils equal round and reactive. Extraocular motions intact. No scleral icterus. No injection or drainage. ENT: Nose without bleeding, purulent drainage. Throat without erythema, tonsillar hypertrophy or exudate. Airway patent. NECK: Trachea midline. Non tender EXTREMITIES: No edema or joint tenderness. NEURO: AOx3. SKIN: No rash or erythema of visible areas Back: No CVA tenderness to palpation Initial Vital Signs Initial Vital Signs: Vital Signs Temperature 97 F L 12/25/24 11:45 Pulse Rate 62 12/25/24 11:45 Respiratory Rate 16 12/25/24 11:45 Blood Pressure 161/112 H 12/25/24 11:45 Pulse Oximetry 96 12/25/24 11:45 Oxygen Delivery Method Room Air 12/25/24 11:45 Course Orders Ordered: ED Orders 12/25/24 12:11 UA Complete [Urinalysis and Microscopic] Stat Urine Culture Stat Vital Signs Vital signs: Vital Signs - 8 hr 12/25/24 11:45 Temperature 97 F L Pulse Rate 62 Respiratory Rate 16 Blood Pressure 161/112 H Pulse Oximetry 96 Oxygen Delivery Method Room Air MDM - Male Genitourinary Lab Data Labs: Lab Results 12/25/24 Range/Units 12:11 Urine Color [place] Urine Appearance Clear Urine pH 5.0 (4.5-8.0) Ur Specific [place] 1.010 (1.000-1.035) Urine Protein 1+ H (Negative) Urine Glucose (UA) Negative (Negative) g/dL Urine Ketones Trace H (NEGATIVE) Urine Occult Blood Trace-intact (Negative) Urine Nitrate Positive H (Negative) Urine Bilirubin Negative (NEGATIVE) Urine Urobilinogen 1.0 (0.2) E.U./dL Ur Leukocyte Esterase Trace H (NEGATIVE) Urine RBC 1-5/hpf D (0-5/HPF) Urine WBC 1-5/hpf (0-5/HPF) Ur Squamous Epith Cells 0-1 /hpf (0-5/HPF) Urine Bacteria Few (2-10) H (None) Ur Culture Indicated? Specimen cultured Vol Urine Centrifuged 10ml (spun) MDM Narrative Medical decision making narrative: ED course: This is a 79-year-old male presents to the emergency department due to suspected UTI. UA positive for leukocytes and nitrites. Patient having UTI symptoms and we will treat empirically with ciprofloxacin. He is reporting some lower back pain and nausea. CC: Dysuria Complicating co-morbidities: As below Data collected from: Previous notes Medical records reviewed: Patient was last seen a year and a half ago due to acute urinary retention. History of the enlarged prostate post TURP, multiple surgeries for bladder stones, Parkinson's. Berger catheter was placed. Has not established urologist. Urine culture eventually grew Staphylococcus epidermidis. Differential considered, but not limited to: Acute simple cystitis, complicated cystitis Exam documented above, pertinent findings include: No CVA tenderness to palpation Lab Test results independently reviewed as above. Pertinent findings: UA positive for nitrates and leukocyte esterase Imaging studies independently reviewed: None obtained Scores Used: None MIPS Elements: None Consultations: None Treatments: None Re-evaluations: None Discussion: Discussed plan with the patient was comfortable with the plan Diagnosis: UTI Disposition: see below, along with detailed discharge instructions that have been reviewed with patient as well as indications for ED re-evaluation and additional outpatient follow up Discharge Plan Departure Patient Disposition: Home Clinical Impression: UTI (urinary tract infection) Instructions: DI for Urinary Tract Infection (UTI) Activity Restrictions/Additional Instructions: Thank you for coming to the [facility] Emergency Department today. Please take the oral antibiotics prescribed. Please return to the emergency department if you develop any worsening abdominal pain, fevers, or any other concerning signs or symptoms. I hope you feel better soon. Please follow up with your primary care provider within a week if your symptoms continue. If you do not have a primary care provider please contact the [facility] Resource line at [phone]. They will ask some questions about your medical history and help you get set up with a provider in the community. Prescriptions: New ciprofloxacin HCl 500 mg tablet 500 mg PO BID Qty: 10 0RF No Action omega-3 fatty acids-fish oil [Fish Oil] 300-1,000 mg Capsule 1 cap PO DAILY cholecalciferol (vitamin D3) [Vitamin D3] 5,000 unit Tablet 5,000 unit PO DAILY carbidopa-levodopa [Rytary] 36.25-145 mg Capsule, Extended Release 3 cap PO TID amlodipine 2.5 mg tablet 2.5 mg PO DAILY Referrals: Yue Orona MD [Primary Care Provider, Internal Medicine] Stand Alone Forms: Patient Portal/API
[2024-12-25 12:20] LABS: Appearance Urine UA CLEAR; Bilirubin Urine UA NEGATIVE (NEGATIVE); Color Urine UA ORANGE; Glucose Urine UA NEGATIVE (Negative); Ketones Urine UA TRACE (NEGATIVE); Leukocyte Esterase Urine UA TRACE (NEGATIVE); Nitrite Urine UA POSITIVE (Negative); Occult Blood Urine UA TRACE-INTACT (Negative); Protein Urine UA 1+ (Negative); Specific Gravity Urine UA 1.010 (1.000-1.035); Urobilinogen Urine UA 1.0 E.U./dL (0.2); pH Urine UA 5.0 (4.5-8.0)
[2024-12-25 12:23] LABS: Culture Indicated Urine Specimen Cultured
[2024-12-25 13:11] VITALS: BP 178/80; PULSE 65; RESP 16; O2SAT 96
== END 2024-12-25 13:12 | disposition home or self-care (01) ==
PROVIDERS: Emergency Provider Physician Assistant Medical; PCP Internal Medicine
DX: N39.0 Urinary tract infection, site not specified (principal)
CPT/HCPCS: 81001; 87086; 99281; 99282

== ENCOUNTER 2025-01-01 10:47 | Emergency (ER) | payer MEDICARE, BC, SELFPAY ==
[2017-08-01 16:44] VITALS: BMI 34.8
[2025-01-01] VITALS (13 sets, daily range): BP systolic 153–195; BP diastolic 75–90; PULSE 52–93; RESP 18–24; TEMP 36.6–36.8; O2SAT 91–98; BMI 30.9
--- NOTE | 2025-01-01 11:07 | DI.CT.S_ITS ---
PROCEDURE: CT ABDOMEN PELVIS W CON INDICATIONS: lower abdominal pain; constipation TECHNIQUE: After the administration of intravenous contrast, axial sections acquired from the lung bases to the pubic symphysis. Coronal and sagittal reformats were performed. For radiation dose reduction, the following was used: automated exposure control, adjustment of mA and/or kV according to patient size. COMPARISON: [facility], CT, CT KUB, 11/18/2019, 15:12. [facility], CT, CT KUB, 06/02/2020, 12:05. (Additional prior imaging is not available for review from the archive at the time of this dictation.) FINDINGS: Image quality: Diagnostic. Lower Chest: Moderate coronary calcification is seen. ABDOMEN: Liver: No solid mass. Nonenhancing liver cysts are seen. Gallbladder: Gallstones are seen within the gallbladder. No additional CT findings of cholecystitis are seen. Biliary ducts: No biliary dilation. Pancreas: No ductal dilation. Spleen: Size is within normal limits. Adrenal Glands: No adrenal nodules. Kidneys and Ureters: There is moderate to severe bilateral hydronephrosis. Bilateral at least moderate hydroureter can also be seen. The kidneys enhance symmetrically. A 1 mm nonobstructing left-sided kidney stone is seen. No duong renal mass can be seen. Stomach and Bowel: There is a moderate volume of stool seen throughout the colon, although particularly distally. There is a presumed distal colonic biopsy clip, as on series 2, image 125. No dilated loops of small bowel are seen. Prior appendectomy. The stomach demonstrates no significant abnormality. Peritoneum: No abnormal intraperitoneal fluid. No free air. Ventral Wall: No significant ventral hernia. Abdominal Nodes: No retroperitoneal or mesenteric adenopathy by size criteria. Vessels: Aorta and inferior vena cava are normal in size. PELVIS: Pelvic Organs: The prostate is prominent, measuring 7.3 cm transversely. Bladder: The urinary bladder is enlarged, measuring greater than 18 cm craniocaudal. Pelvic Nodes: No enlarged lymph nodes. Miscellaneous: No inguinal hernias are seen. Bones: No aggressive osseous abnormality. Lumbosacral postoperative change is seen. Degenerative changes are seen which are worst involving the lumbar spine. IMPRESSION: Enlarged urinary bladder, with bilateral moderate to severe hydronephrosis and hydroureter. Urinary retention/bladder outlet obstruction is suspected. A moderate volume of stool is seen throughout the colon which is consistent with the given history of constipation. Additional findings: Presumed rectal biopsy clip Prior appendectomy Lumbosacral postoperative change Dictated by: Augustine Knott M.D. on 01/01/2025 at 12:30 Approved by: Augustine Knott M.D. on 01/01/2025 at 12:36
--- NOTE | 2025-01-01 11:18 | ED.ABDPAIN ---
HPI - Abdominal Pain <Mary Lopez PA-C - Last Filed: 01/01/25 15:48> General Chief Complaint: Abdominal Pain Stated Complaint: impacted bowels stomach is hard Time Seen by Provider: 01/01/25 11:06 Source: patient Mode of arrival: Wheelchair History of Present Illness HPI narrative: Mr. Chavez is a very pleasant 79-year-old gentleman with a past medical history of Parkinson's disease, HTN, prior back surgery, enlarged prostate with prior bladder surgeris for bladder stones who presents to the emergency department for abdominal pain and constipation x1 week. Patient's history is supported by his at the bedside. States that he has been having lower abdominal discomfort for little over the last week, he came to the emergency department on 12/25/2024 because he was having symptoms concerning for a UTI at that time. He was treated with ciprofloxacin and has had great improvement in his urinary symptoms but he has continued to have lower abdominal discomfort, bloating and constipation. His has given him 2 enemas and oral laxatives and he has only passed small hard rock like pieces of stool. She reports that he does struggle with constipation however this is more significant than usual. He is having some nausea but no vomiting, diarrhea, fevers, chills, flu-like symptoms, chest pain, shortness of breath, hematuria, melena or hematochezia. Related Data Home Medications ?Medication ?Instructions ?Recorded ?Confirmed carbidopa ER 36.25 mg-levodopa 145 3 cap PO TID 07/25/17 09/25/24 mg capsule,extended release (Rytary) cholecalciferol (vitamin D3) 125 5,000 unit PO DAILY 07/25/17 09/25/24 mcg (5,000 unit) tablet (Vitamin D3) omega-3 fatty acids-fish oil 300 1 cap PO DAILY 07/25/17 09/25/24 mg-1,000 mg capsule (Fish Oil) amlodipine 2.5 mg tablet 2.5 mg PO DAILY 07/08/24 09/25/24 Previous Rx's ?Medication ?Instructions ?Recorded ciprofloxacin HCl 500 mg tablet 500 mg PO BID #10 tabs 12/25/24 sulfamethoxazole 800 1 tab PO Q12H 7 days #14 tabs 01/01/25 mg-trimethoprim 160 mg tablet (Bactrim DS) Allergies Allergy/AdvReac Type Severity Reaction Status Date / Time No Known Drug Allergies Allergy Verified 01/01/25 10:59 <Anny Pena MD - Last Filed: 01/01/25 20:11> History of Present Illness HPI narrative: Mr. Chavez is a very pleasant 79-year-old gentleman with a past medical history of Parkinson's disease, HTN, prior back surgery, enlarged prostate with prior bladder surgeries for bladder stones who presents to the emergency department for abdominal pain and constipation x1 week. Patient's history is supported by his at the bedside. States that he has been having lower abdominal discomfort for little over the last week, he came to the emergency department on 12/25/2024 because he was having symptoms concerning for a UTI at that time. He was treated with ciprofloxacin and has had great improvement in his urinary symptoms but he has continued to have lower abdominal discomfort, bloating and constipation. His has given him 2 enemas and oral laxatives and he has only passed small hard rock like pieces of stool. She reports that he does struggle with constipation however this is more significant than usual. He is having some nausea but no vomiting, diarrhea, fevers, chills, flu-like symptoms, chest pain, shortness of breath, hematuria, melena or hematochezia. Review of Systems <Mary Lopez PA-C - Last Filed: 01/01/25 15:48> Review of Systems ROS Unobtainable: All systems reviewed & are unremarkable except as noted in HPI and below Patient History <Mary Lopez PA-C - Last Filed: 01/01/25 15:48> Medical History Primary osteoarthritis of right knee Basal cell carcinoma (BCC) History of bladder stone Heart murmur Skin cancer Paresthesias Sleep apnea with use of continuous positive airway pressure (CPAP) HTN (hypertension) Elevated PSA Arthritis Intermittent tremor Spinal stenosis Cervical radiculopathy Parkinson's disease Surgical History Hx of shoulder surgery Hx of prostate biopsy Hx of right knee surgery Hx of hernia repair Social History household members: spouse, family and other Smoking Status: Never smoker alcohol intake: current Smoking Status: Never smoker alcohol intake frequency: 0-2 drinks per day Exam <Mary Lopez PA-C - Last Filed: 01/01/25 15:48> Narrative Exam Narrative: GENERAL: 79 year old patient appears stated age. Well-developed patient, in no acute distress. HEAD: Atraumatic. Normocephalic. EYES: No scleral icterus. No injection or drainage. NECK: Trachea midline. Cervical ROM intact. CARDIOVASCULAR: Regular rate and rhythm. RESPIRATORY: ?Nonlabored respirations. ?Speaking in clear, full sentences. ?Clear to auscultation. Breath sounds equal bilaterally. No wheezes, rales, or rhonchi. ? GASTROINTESTINAL: Abdomen distended, bowel sounds are present. Very mild tenderness to palpation. No rebound or guarding. EXTREMITIES: No LE pitting edema. NEURO: Alert and oriented. Able to answer questions with short responses or yes no answers. He does have diffuse tremor, baseline for his Parkinson's disease. SKIN: No rash or erythema of visible areas. Initial Vital Signs Initial Vital Signs: Vital Signs Blood Pressure 195/90 H 01/01/25 10:57 <Anny Pena MD - Last Filed: 01/01/25 20:11> Initial Vital Signs Initial Vital Signs: Vital Signs Blood Pressure 195/90 H 01/01/25 10:57 Course <Mary Lopez PA-C - Last Filed: 01/01/25 15:48> Orders Ordered: ED Orders 01/01/25 11:33 Complete Blood Count AUTO DIFF Stat Comprehensive Metabolic Panel Stat Lipase Stat 01/01/25 13:10 Urine Culture Stat Urine Microscopic Stat Discontinued Medications Sodium Chloride (Normal Saline 0.9%) 500 mls @ 500 mls/hr IV BOLUS ONE Stop: 01/01/25 12:17 Last Infusion: 01/01/25 15:34 Dose: Infused Documented By: Admin: 01/01/25 14:57 Dose: 500 mls/hr Documented By: SBF Lidocaine HCl (Lidocaine 2% (Glydo) 6 Ml Gel) 6 ml TOP NOW ONE Stop: 01/01/25 11:46 Last Admin: 01/01/25 11:45 Dose: 6 ml Documented By: SBF Trimethoprim/Sulfamethoxazole (Trimeth/Sulfa 160/800 (Ds) Tablet) 1 tab PO NOW ONE Stop: 01/01/25 14:32 Last Admin: 01/01/25 14:57 Dose: 1 tab Documented By: DEBBIE Vital Signs Vital signs: Vital Signs - 8 hr 01/01/25 12:30 01/01/25 12:30 01/01/25 13:00 Temperature Pulse Rate 55 L 58 L Respiratory Rate 18 Blood Pressure 162/77 H Pulse Oximetry 91 91 01/01/25 13:30 01/01/25 14:00 01/01/25 14:30 Temperature Pulse Rate 59 L 54 L 58 L Respiratory Rate 18 20 Blood Pressure Pulse Oximetry 93 93 94 01/01/25 15:23 01/01/25 15:23 01/01/25 15:33 Temperature 98.3 F Pulse Rate 58 L Respiratory Rate Blood Pressure 153/75 H Pulse Oximetry 96 <Anny Pena MD - Last Filed: 01/01/25 20:11> Orders Ordered: ED Orders 01/01/25 11:33 Complete Blood Count AUTO DIFF Stat Comprehensive Metabolic Panel Stat Lipase Stat 01/01/25 13:10 Urine Culture Stat Urine Microscopic Stat Discontinued Medications Sodium Chloride (Normal Saline 0.9%) 500 mls @ 500 mls/hr IV BOLUS ONE Stop: 01/01/25 12:17 Last Infusion: 01/01/25 15:34 Dose: Infused Documented By: Admin: 01/01/25 14:57 Dose: 500 mls/hr Documented By: DEBBIE Lidocaine HCl (Lidocaine 2% (Glydo) 6 Ml Gel) 6 ml TOP NOW ONE Stop: 01/01/25 11:46 Last Admin: 01/01/25 11:45 Dose: 6 ml Documented By: DEBBIE Trimethoprim/Sulfamethoxazole (Trimeth/Sulfa 160/800 (Ds) Tablet) 1 tab PO NOW ONE Stop: 01/01/25 14:32 Last Admin: 01/01/25 14:57 Dose: 1 tab Documented By: DEBBIE Vital Signs Vital signs: Vital Signs - 8 hr 01/01/25 12:30 01/01/25 12:30 01/01/25 13:00 Temperature Pulse Rate 55 L 58 L Respiratory Rate 18 Blood Pressure 162/77 H Pulse Oximetry 91 91 01/01/25 13:30 01/01/25 14:00 01/01/25 14:30 Temperature Pulse Rate 59 L 54 L 58 L Respiratory Rate 18 20 Blood Pressure Pulse Oximetry 93 93 94 01/01/25 15:23 01/01/25 15:23 01/01/25 15:33 Temperature 98.3 F Pulse Rate 58 L Respiratory Rate Blood Pressure 153/75 H Pulse Oximetry 96 MDM - Abdominal Pain <Mary C PER Lopez - Last Filed: 01/01/25 15:48> Medical Records Attestation: I reviewed the patient's medical records. Lab Data 01/01/25 11:33 01/01/25 11:33 Labs: Lab Results 01/01/25 01/01/25 Range/Units 11:33 13:10 WBC 11.9 H (4.5-11.0) X10^3/uL RBC 4.38 L (4.5-5.9) X10^6/uL Hgb 12.5 L (13.5-17.5) g/dL Hct 37.8 L (41-53) % MCV 86.4 (80-100) fL MCH 28.6 (26-34) PG MCHC 33.1 (30-36) % RDW 13.3 (11.6-14.8) % Plt Count 335 (150-400) X10^3/uL Neut % (Auto) 75.7 H (50-75) % Lymph % (Auto) 10.7 L (25-40) % Nuckolls % (Auto) 10.9 (3-14) % Eos % (Auto) 2.5 (2-4) % Baso % (Auto) 0.2 (0-2) % Neut # (Auto) 9000 H (8966-7080) /uL Lymph # (Auto) 1300 (0027-9803) /uL [place]olls # (Auto) 1300 H (0-900) /uL Eos # (Auto) 300 (0-450) /uL Baso # (Auto) 0 (0-100) /uL Sodium 141 (137-145) mmol/L Potassium 4.1 (3.4-5.1) mmol/L Chloride 105 (98-107) mmol/L Carbon Dioxide 26 (22-32) mmol/L BUN 28 H (9-20) mg/dL Creatinine 0.87 (0.66-1.25) mg/dL Estimated GFR > 60 (>60) mL/min BUN/Creatinine Ratio 32.2 H (6-22) Glucose 103 H (70-99) mg/dL Calcium 9.2 (8.4-10.2) mg/dL Total Bilirubin 0.5 (0.2-1.3) mg/dL AST 20 (17-59) IU/L ALT 6 (<50) IU/L Alkaline Phosphatase 102 (38-126) U/L Total Protein 7.6 (6.3-8.2) g/dL Albumin 4.0 (3.5-5.0) g/dL Globulin 3.6 (1.7-4.1) g/dL Albumin/Globulin Ratio 1.1 (1.0-2.8) Lipase 128 (23-300) U/L Urine RBC 30-100/hpf H (0-5/HPF) Urine WBC 10-30/hpf H (0-5/HPF) Ur Squamous Epith Cells 1-5 /hpf (0-5/HPF) Urine Bacteria Occasional (0-1) (None) Urine Mucus 1+ H (Negative) Vol Urine Centrifuged 10ml (spun) Point of care testing: Urine Dip Bedside Urine Glucose 100 mg/dl Bedside Urine Bilirubin - Negative Bedside Urine Ketone - Negative Urine Specific [place] 1.015 Bedside Urine Occult Blood +++ Bedside Urine pH 6.0 Bedside Urine Protein + 30 Bedside Urine Urobilinogen - Negative Bedside Urine Nitrite - Negative Bedside Urine Leukocytes + [address] scan - abdomen/pelvis: Radiologist's Impression: PROCEDURE: CT ABDOMEN PELVIS W CON INDICATIONS: lower abdominal pain; constipation TECHNIQUE: After the administration of intravenous contrast, axial sections acquired from the lung bases to the pubic symphysis. Coronal and sagittal reformats were performed. For radiation dose reduction, the following was used: automated exposure control, adjustment of mA and/or kV according to patient size. COMPARISON: [facility], CT, CT KUB, 11/18/2019, 15:12. [facility], CT, CT KUB, 06/02/2020, 12:05. (Additional prior imaging is not available for review from the archive at the time of this dictation.) FINDINGS: Image quality: Diagnostic. Lower Chest: Moderate coronary calcification is seen. ABDOMEN: Liver: No solid mass. Nonenhancing liver cysts are seen. Gallbladder: Gallstones are seen within the gallbladder. No additional CT findings of cholecystitis are seen. Biliary ducts: No biliary dilation. Pancreas: No ductal dilation. Spleen: Size is within normal limits. Adrenal Glands: No adrenal nodules. Kidneys and Ureters: There is moderate to severe bilateral hydronephrosis. Bilateral at least moderate hydroureter can also be seen. The kidneys enhance symmetrically. A 1 mm nonobstructing left-sided kidney stone is seen. No duong renal mass can be seen. Stomach and Bowel: There is a moderate volume of stool seen throughout the colon, although particularly distally. There is a presumed distal colonic biopsy clip, as on series 2, image 125. No dilated loops of small bowel are seen. Prior appendectomy. The stomach demonstrates no significant abnormality. Peritoneum: No abnormal intraperitoneal fluid. No free air. Ventral Wall: No significant ventral hernia. Abdominal Nodes: No retroperitoneal or mesenteric adenopathy by size criteria. Vessels: Aorta and inferior vena cava are normal in size. PELVIS: Pelvic Organs: The prostate is prominent, measuring 7.3 cm transversely. Bladder: The urinary bladder is enlarged, measuring greater than 18 cm craniocaudal. Pelvic Nodes: No enlarged lymph nodes. Miscellaneous: No inguinal hernias are seen. Bones: No aggressive osseous abnormality. Lumbosacral postoperative change is seen. Degenerative changes are seen which are worst involving the lumbar spine. IMPRESSION: Enlarged urinary bladder, with bilateral moderate to severe hydronephrosis and hydroureter. Urinary retention/bladder outlet obstruction is suspected. A moderate volume of stool is seen throughout the colon which is consistent with the given history of constipation. Additional findings: Presumed rectal biopsy clip Prior appendectomy Lumbosacral postoperative change Dictated by: Augustine Knott M.D. on 01/01/2025 at 12:30 Approved by: Augustine Knott M.D. on 01/01/2025 at 12:36 MDM Narrative Medical decision making narrative: 79-year-old gentleman with a past medical history of Parkinson's disease, HTN, prior back surgery, enlarged prostate with prior bladder surgeris for bladder stones who presents to the emergency department for abdominal pain and constipation x1 week. Differential diagnosis includes but is not limited to UTI, urinary retention, enlarged prostate, constipation, stercoral colitis, diverticulitis, obstruction, etc. On exam the patient is in no acute distress, nontoxic appearing, vital signs within normal limits except for elevated blood pressure, states that he is actually out of his amlodipine currently. He has been having over a week of lower abdominal discomfort and constipation, he was having urinary symptoms that resolved with a course of ciprofloxacin but he has continued to be constipated with worsening bloating. On exam his abdomen is distended but not overly tender with no rebound or guarding. He has had prior surgeries on his back and his bladder multiple times for stones. We will obtain CBC, CMP, lipase, CT abdomen and pelvis with IV contrast, postvoid bladder scan, urinalysis, treat with gentle fluids. He declines pain medication at this time. 1145: Informed by nursing staff, post-void residual reveals 1000ml retained urine. Berger catheter to be placed, pt's reports in the past he has needed 10F coude however we do not seem to carry this small of a catheter 1320: Informed by nursing staff that there is difficulty placing catheter, they have tried 16, 14, we will attempt with 12 Divehi now as this was just obtained from another area of the hospital. They were able to get about 300cc of urine so far. Labs reveal elevated WBC count 11.9, hemoglobin 12.5 hematocrit 37.8. Platelets normal 335. Normal sodium 141, potassium 4.1, BUN slightly elevated 28 normal creatinine 0.87. Glucose 103. Normal LFTs. Normal lipase 128. Urinalysis reveals RBCs, WBCs, occasional bacteria. Recent urine culture was negative however given patient's slightly elevated white blood cell count and hydronephrosis we will treat as UTI with Bactrim b.i.d. x7 days with a urine culture pending. CT abdomen pelvis reveals enlarged urinary bladder with bilateral moderate to severe hydronephrosis and hydroureter. Urinary retention/bladder outlet obstruction suspected. Moderate volume is seen throughout the colon which is consistent with given history of constipation. The CT scan was performed prior to the patient's Berger catheter placement. 12F indwelling Berger catheter was placed by nursing staff with significant output of urine, patient had immediate relief any actually had an independent large bowel movement following. Patient's symptoms have improved significantly during his ED stay, catheter is draining well. We will prescribe Bactrim b.i.d. x7 days for UTI and this male patient, advised he follow up promptly with urology for further management of large prostate and urinary retention. We reviewed very strict emergency department return precautions with the patient his verbalized understanding of. He is ambulatory independently and stable for discharge to home. <Anny Pena MD - Last Filed: 01/01/25 20:11> Lab Data Labs: Lab Results 01/01/25 01/01/25 Range/Units 11:33 13:10 WBC 11.9 H (4.5-11.0) X10^3/uL RBC 4.38 L (4.5-5.9) X10^6/uL Hgb 12.5 L (13.5-17.5) g/dL Hct 37.8 L (41-53) % MCV 86.4 (80-100) fL MCH 28.6 (26-34) PG MCHC 33.1 (30-36) % RDW 13.3 (11.6-14.8) % Plt Count 335 (150-400) X10^3/uL Neut % (Auto) 75.7 H (50-75) % Lymph % (Auto) 10.7 L (25-40) % Nuckolls % (Auto) 10.9 (3-14) % Eos % (Auto) 2.5 (2-4) % Baso % (Auto) 0.2 (0-2) % Neut # (Auto) 9000 H (0331-7213) /uL Lymph # (Auto) 1300 (9338-1315) /uL [place]uckolls # (Auto) 1300 H (0-900) /uL Eos # (Auto) 300 (0-450) /uL Baso # (Auto) 0 (0-100) /uL Sodium 141 (137-145) mmol/L Potassium 4.1 (3.4-5.1) mmol/L Chloride 105 (98-107) mmol/L Carbon Dioxide 26 (22-32) mmol/L BUN 28 H (9-20) mg/dL Creatinine 0.87 (0.66-1.25) mg/dL Estimated GFR > 60 (>60) mL/min BUN/Creatinine Ratio 32.2 H (6-22) Glucose 103 H (70-99) mg/dL Calcium 9.2 (8.4-10.2) mg/dL Total Bilirubin 0.5 (0.2-1.3) mg/dL AST 20 (17-59) IU/L ALT 6 (<50) IU/L Alkaline Phosphatase 102 (38-126) U/L Total Protein 7.6 (6.3-8.2) g/dL Albumin 4.0 (3.5-5.0) g/dL Globulin 3.6 (1.7-4.1) g/dL Albumin/Globulin Ratio 1.1 (1.0-2.8) Lipase 128 (23-300) U/L Urine RBC 30-100/hpf H (0-5/HPF) Urine WBC 10-30/hpf H (0-5/HPF) Ur Squamous Epith Cells 1-5 /hpf (0-5/HPF) Urine Bacteria Occasional (0-1) (None) Urine Mucus 1+ H (Negative) Vol Urine Centrifuged 10ml (spun) Point of care testing: Urine Dip Bedside Urine Glucose 100 mg/dl Bedside Urine Bilirubin - Negative Bedside Urine Ketone - Negative Urine Specific [place] 1.015 Bedside Urine Occult Blood +++ Bedside Urine pH 6.0 Bedside Urine Protein + 30 Bedside Urine Urobilinogen - Negative Bedside Urine Nitrite - Negative Bedside Urine Leukocytes + 70 Esterase Discharge Plan Departure Patient Disposition: Home Clinical Impression: Acute urinary retention, Acute UTI Constipation Qualifiers: Constipation type: unspecified constipation type Qualified Code(s): K59.00 - Constipation, unspecified Instructions: DI for Urinary Retention in Men Activity Restrictions/Additional Instructions: Dear Scott, Thank you for coming to the emergency department. Today you were evaluated for abdominal pain bloating and constipation. Your workup today revealed an extremely full urinary bladder which was emptied using the catheter. It is very important that this Berger catheter stays in place until you can follow up with Urology for removal and further management. You have also been prescribed another course of antibiotics, the urine culture is pending at this time please complete the full course of antibiotics. Please increase hydration and use MiraLax if needed to help soften stools. Please return to the emergency department immediately if you develop fevers, severe pain, blockage of your catheter, significant blood or any other concerns. Please follow up with your primary care doctor within the next 2-3 days for ER follow-up. (If you do not have a PCP you can call [phone]. ?to schedule an appointment with an [facility] Primary Care Provider) IF YOU DEVELOP ANY NEW OR WORSENING SYMPTOMS, RETURN TO THE ER! Please read the attached instructions, they highlight more specific treatments and interventions for you at home. Thank you for letting me participate in your care, Mary Lopez PA-C Prescriptions: New sulfamethoxazole-trimethoprim [Bactrim DS] 800-160 mg tablet 1 tab PO Q12H 7 Days Qty: 14 0RF No Action omega-3 fatty acids-fish oil [Fish Oil] 300-1,000 mg Capsule 1 cap PO DAILY cholecalciferol (vitamin D3) [Vitamin D3] 5,000 unit Tablet 5,000 unit PO DAILY carbidopa-levodopa [Rytary] 36.25-145 mg Capsule, Extended Release 3 cap PO TID ciprofloxacin HCl 500 mg tablet 500 mg PO BID Qty: 10 0RF amlodipine 2.5 mg tablet 2.5 mg PO DAILY Referrals: Juan R Espino DO [Physician, Urology] Referral Note: urinary retention Yue Orona MD [Primary Care Provider, Internal Medicine] Stand Alone Forms: Patient Portal/API ED Sign-out <Anny Pena MD - Last Filed: 01/01/25 20:11> Cosign ED Attending Vinny Attestation: I was not directly involved in patient care of her was available in the ER if needed. Reviewed PA's note and agree with assessment and plan. Unsure how long the patient was observed in the ER to rule out postobstructive diuresis however it appears that he has a primary care physician and referral to Urology.
[2025-01-01 11:39] LABS: Add Manual Diff / Slide Review NO; Hematocrit 37.8 % (41-53); Hemoglobin 12.5 g/dL (13.5-17.5); Lymphocytes Absolute Auto 1300 /uL (1100-4500); Mean Corpuscular HGB Conc 33.1 % (30-36); Mean Corpuscular Hemoglobin 28.6 PG (26-34); Mean Corpuscular Volume 86.4 fL (80-100); Platelet Count 335 X10^3/uL (150-400)
[2025-01-01] MEDS: LIDOCAINE 2% (GLYDO) 6 ML GEL TOP (11:45)
[2025-01-01 12:02] LABS: Alanine Aminotransferase 6 IU/L (<50); Albumin 4.0 g/dL (3.5-5.0); Albumin Globulin Ratio 1.1 (1.0-2.8); Alkaline Phosphatase 102 U/L (38-126); Blood Urea Nitrogen 28 mg/dL (9-20); Calcium 9.2 mg/dL (8.4-10.2); Carbon Dioxide 26 mmol/L (22-32); Chloride 105 mmol/L (98-107); Estimated Glomerular Filt Rate > 60 mL/min (>60); Globulin 3.6 g/dL (1.7-4.1); Glucose 103 mg/dL (70-99); HEMOLYSIS < 15 (0-50); Lipase 128 U/L (23-300); Potassium 4.1 mmol/L (3.4-5.1); Sodium 141 mmol/L (137-145); Total Protein 7.6 g/dL (6.3-8.2)
--- NOTE | 2025-01-01 13:08 | PC.NURSE ---
abdominal firmness and tenderness. rn attempted a post void residual and pt urinated 5mls and on bladder scanner pt has >1000mls provider aware
--- NOTE | 2025-01-01 13:11 | PC.NURSE ---
attemped blakely cath with 14 [place] coude as well as 18 [place] coude. catheter coiling in urethra and will not pass prostate. smaller [place]i catheters recd at this time and will reattempt. 300mls urine obtained initially with 18 [place] coude but unable to inflate balloon due to catheter coiling in urethra. provider aware of all findings
[2025-01-01] MEDS: SODIUM CHLORIDE 0.9% 500 ML IV (14:57)
[2025-01-01] MEDS: TRIMETH/SULFA 160/800 (DS) TABLET 1 TAB PO (14:57)
== END 2025-01-01 15:34 | disposition home or self-care (01) ==
PROVIDERS: Emergency Provider Physician Assistant; PCP Internal Medicine
DX: K59.00 Constipation, unspecified (principal); N39.0 Urinary tract infection, site not specified; R33.9 Retention of urine, unspecified; I10 Essential (primary) hypertension
CPT/HCPCS: 36415; 51701; 51798; 74177; 80053; 81003; 81015; 83690; 85025; 87086; 99284; J7030; Q9967

== ENCOUNTER 2025-01-03 17:56 | Emergency (ER) | payer MEDICARE, BC, SELFPAY ==
[2017-08-01 16:44] VITALS: BMI 34.8
[2025-01-03 17:58] VITALS: BP 161/74; PULSE 57; RESP 18; TEMP 36.3; O2SAT 98; BMI 29.8
--- NOTE | 2025-01-03 18:06 | PC.NURSE ---
During triage, evaluated blakely bag and found it to have urine in it. states that is new and that if urine is flowing they will be going home. Educated on risk vs benefit and to return should the problem or any other problem occurs.
== END 2025-01-03 18:08 | disposition left against medical advice (07) ==
PROVIDERS: Emergency Provider Student in an Organized Health Care Education/Training Program; PCP Internal Medicine
DX: Z53.21 Procedure and treatment not carried out due to patient leaving prior to being seen by health care provider (principal)
CPT/HCPCS: 99281

== ENCOUNTER 2025-01-14 23:13 | Emergency (ER) | payer MEDICARE, BC, SELFPAY ==
[2017-08-01 16:44] VITALS: BMI 34.8
[2025-01-14 23:48] VITALS: BP 179/85; PULSE 53; RESP 16; TEMP 36.4; O2SAT 95; BMI 29.8
[2025-01-15] MEDS: LIDOCAINE 2% (GLYDO) 6 ML GEL TOP (00:12)
--- NOTE | 2025-01-15 00:33 | ED.MALEGU ---
HPI - Male Genitourinary General Chief complaint: Urogenital-Male Stated complaint: Urinary Retention Time Seen by Provider: 01/15/25 00:03 Source: patient and family Mode of arrival: Wheelchair History of Present Illness HPI Narrative: 79-year-old male with history of BPH and urinary retention, had difficult to place trans urethral urinary catheter on gi, removed at home this morning, seen in urology clinic 2:00 p.m. seemed to be doing okay, but no urination since 8:00 p.m., with increasing suprapubic area discomfort. No fevers or chills. No flank pain. Related Data Home Medications ?Medication ?Instructions ?Recorded ?Confirmed carbidopa ER 36.25 mg-levodopa 145 3 cap PO TID 07/25/17 01/13/25 mg capsule,extended release (Rytary) omega-3 fatty acids-fish oil 300 1 cap PO DAILY 07/25/17 01/13/25 mg-1,000 mg capsule (Fish Oil) amlodipine 2.5 mg tablet 2.5 mg PO DAILY 07/08/24 01/13/25 calcium 600 mg (as carbonate)-vit tab PO 01/13/25 01/13/25 D3 5 mcg (200 unit)-minerals tablet folic acid-vit B6-vit B12 0.8 1 tab PO DAILY 01/13/25 01/13/25 mg-50 mg-100 mcg tablet (Homocysteine Formula) sildenafil (pulm.hypertension) 20 See Rx Instructions PO ONCE PRN 01/13/25 01/13/25 mg tablet sexual activity Previous Rx's ?Medication ?Instructions ?Recorded ciprofloxacin HCl 500 mg tablet 500 mg PO BID #10 tabs 12/25/24 tamsulosin 0.4 mg capsule 0.4 mg PO DAILY #90 caps 01/14/25 Allergies Allergy/AdvReac Type Severity Reaction Status Date / Time lisinopril Allergy Unknown Verified 01/14/25 23:48 Patient History Medical History Primary osteoarthritis of right knee Basal cell carcinoma (BCC) History of bladder stone Heart murmur Skin cancer Paresthesias Sleep apnea with use of continuous positive airway pressure (CPAP) HTN (hypertension) Elevated PSA Arthritis Intermittent tremor Spinal stenosis Cervical radiculopathy Parkinson's disease Surgical History Hx of shoulder surgery Hx of prostate biopsy Hx of right knee surgery Hx of hernia repair Social History household members: spouse, family and other Smoking Status: Never smoker alcohol intake: current Smoking Status: Never smoker alcohol intake frequency: 0-2 drinks per day Exam Narrative Exam Narrative: GENERAL: Well-developed patient, in mild distress. HEAD: Atraumatic. Normocephalic. EYES: Pupils equal round and reactive. Extraocular motions intact. No scleral icterus. No injection or drainage. ENT: Nose without bleeding, purulent drainage. Throat without erythema, tonsillar hypertrophy or exudate. Airway patent. NECK: Trachea midline. Non tender CARDIOVASCULAR: Regular rate and rhythm without murmurs, gallops, or rubs. RESPIRATORY: Clear to auscultation. Breath sounds equal bilaterally. No wheezes, rales, or rhonchi. GASTROINTESTINAL: Abdomen soft, non-tender, nondistended. EXTREMITIES: No edema or joint tenderness. BACK: Nontender without deformity or crepitance. No flank tenderness. NEURO: AOx3. Motor functions grossly nonfocal. SKIN: No rash or erythema of visible areas Initial Vital Signs Initial Vital Signs: Vital Signs Temperature 97.5 F L 01/14/25 23:48 Pulse Rate 53 L 01/14/25 23:48 Respiratory Rate 16 01/14/25 23:48 Blood Pressure 179/85 H 01/14/25 23:48 Pulse Oximetry 95 01/14/25 23:48 Oxygen Delivery Method Room Air 01/14/25 23:48 Course Orders Ordered: Discontinued Medications Lidocaine HCl (Lidocaine 2% (Glydo) 6 Ml Gel) 6 ml TOP NOW ONE Stop: 01/14/25 23:58 Last Admin: 01/15/25 00:12 Dose: 6 ml Documented By: ARI Lidocaine HCl (Lidocaine 2% (Glydo) 6 Ml Gel) 6 ml TOP NOW ONE Stop: 01/15/25 01:29 Vital Signs Vital signs: Vital Signs - 8 hr 01/14/25 23:48 01/15/25 02:34 01/15/25 02:35 Temperature 97.5 F L Pulse Rate 53 L 57 L 57 L Respiratory Rate 16 Blood Pressure 179/85 H Pulse Oximetry 95 98 98 Oxygen Delivery Method Room Air 01/15/25 02:35 01/15/25 03:00 01/15/25 03:01 Temperature Pulse Rate 56 L 56 L Respiratory Rate Blood Pressure 182/85 H Pulse Oximetry 97 97 Oxygen Delivery Method Room Air 01/15/25 03:01 Temperature Pulse Rate Respiratory Rate Blood Pressure 162/78 H Pulse Oximetry Oxygen Delivery Method MDM - Male Genitourinary MDM Narrative Medical decision making narrative: 79-year-old male with urinary retention, BPH, trans urethral urinary catheter since Thanksgiving due to urinary retention, removed this morning at home as planned, saw Urology Dr. Earl 2:00 p.m., no urination since 8:00 p.m., increased suprapubic discomfort. Increased bladder volume on bladder scanning. Nursing attempted silicone 14 [place] catheter based on prior difficult catheterization, unable to passed, tried 14 [place] coude catheter, also unable to pass. We will consult Dr. Espino urology on-call. Case was discussed with Dr. Espino who suggests catheterization with 10-12 [place] size. 14Fr sizes were identified in the department and in central supply, nursing to query inpatient staff to look in the operating theater or other places for smaller size urinary catheter. Attempts at 12 [place] coude, 16 [place] coude also unsuccessful, now with some bleeding. Will reconsult urology. 0145, case discussed again with Urology Dr. Espino who will come see patient. Urology cart to be placed in room with patient. See procedure note from Urology, successful placement of trans urethral urinary catheter through endoscope/wire at bedside. 1300 cc clear fluid, normotensive, feels better. We will leave catheter in place. Follow up with Urology. Discharged home with family. Discharge Plan Departure Patient Disposition: Home Clinical Impression: Acute urinary retention, Enlarged prostate Activity Restrictions/Additional Instructions: Prior prostate surgeries, prostatic enlargement, urinary retention, trans urethral urinary catheter placed Thanksgi with difficulty, this morning as planned catheter was removed at home, recheck in urology clinic seemed to be going okay this afternoon, but no urinary output 8:00 p.m. tonight, with the increasing lower abdominal discomfort. Bladder scan after arrival showed enlarged volume bladder, suspected urinary retention. Multiple attempts various sizes of regular and coude catheters attempted, unsuccessful. Urology Dr. Cr came in the emergency department and was able to successfully place trans urethral catheter with the aid of bedside endoscopic cystic scope and wire system, 16 [place] catheter placed, with nonbloody fluid, symptoms improved. Leave catheter in place for now. Follow up as an outpatient with Urology. Return earlier if any change worsening symptoms or any concerns prior. Prescriptions: No Action omega-3 fatty acids-fish oil [Fish Oil] 300-1,000 mg Capsule 1 cap PO DAILY carbidopa-levodopa [Rytary] 36.25-145 mg Capsule, Extended Release 3 cap PO TID ciprofloxacin HCl 500 mg tablet 500 mg PO BID Qty: 10 0RF amlodipine 2.5 mg tablet 2.5 mg PO DAILY Homocysteine Formula 0.8-50-100 mg-mg-mcg tablet 1 tab PO DAILY sildenafil (pulm.hypertension) 20 mg tablet See Rx Instructions PO ONCE PRN (Reason: sexual activity) Rx Instructions: 1-5 tablet orally once PRN; administer doses at least 4-6 hours apart calcium carbonate-vit D3-min 600 mg calcium- 200 unit tablet PO tamsulosin 0.4 mg capsule 0.4 mg PO DAILY Qty: 90 0RF Referrals: Juan R Espino DO [Physician, Urology] Yue Orona MD [Primary Care Provider, Internal Medicine] Stand Alone Forms: Patient Portal/API
--- NOTE | 2025-01-15 02:30 | PM.CN.IH.1 ---
History of Present Illness Consult details Date Patient Seen: 01/15/25 Time Patient Seen: 02:30 Chief complaint: Urinary Retention Reason for consult: Blakely catheter placement Narrative: 79 y/o M referred to Urology clinic on 14 Jan 2025 to discuss his urinary habits and blakely catheter management. Briefly, he was previously managed by [facility]. He admits to a UDS in the past as well as at least one TURP and several cystolithalopaxies. He has been taking Prostagenix at home for management of his urinary habits. He developed a UTI in Dec and was evaluated in the ER for this issue. Roughly a week later, he developed severe abdominal pain/discomfort in the setting of difficulty with urination and worsening constipation (this is a chronic issue for him). His sCr was noted to be 0.[address] Abd/Pel was notable for a very distended bladder with bilateral moderate to severe hydroureteronephrosis. A blakely catheter was placed (14Fr coude) with immediate drainage of 1800 cc's of clear yellow urine. He was started on Tamsulosin 0.4mg daily. His blakely catheter was removed that morning and he was urinating without difficulty. His PVR this afternoon was 17 cc. At baseline, he admits to a medium strength urinary stream, the sensation of incomplete bladder emptying, urinary frequency and nocturia 3-4 times per night. He otherwise denies urinary hesitancy/intermittency/urgency. Unfortunately, he was unable to urinate later that day and presented to the ER for further evaluation. His bladder scan was notable for more than 1L of urine and several attempts were made at blakely catheter placement, all unsuccessful, therefore, Urology was consulted for further management. Meds Home Medications and Allergies Home Medications ?Medication ?Instructions ?Recorded ?Confirmed ?Type carbidopa ER 36.25 mg-levodopa 145 3 cap PO TID 07/25/17 01/13/25 History mg capsule,extended release (Rytary) omega-3 fatty acids-fish oil 300 1 cap PO DAILY 07/25/17 01/13/25 History mg-1,000 mg capsule (Fish Oil) amlodipine 2.5 mg tablet 2.5 mg PO DAILY 07/08/24 01/13/25 History ciprofloxacin HCl 500 mg tablet 500 mg PO BID #10 tabs 12/25/24 01/13/25 Rx calcium 600 mg (as carbonate)-vit tab PO 01/13/25 01/13/25 History D3 5 mcg (200 unit)-minerals tablet folic acid-vit B6-vit B12 0.8 1 tab PO DAILY 01/13/25 01/13/25 History mg-50 mg-100 mcg tablet (Homocysteine Formula) sildenafil (pulm.hypertension) 20 See Rx Instructions PO ONCE PRN 01/13/25 01/13/25 History mg tablet sexual activity tamsulosin 0.4 mg capsule 0.4 mg PO DAILY #90 caps 01/14/25 01/14/25 Rx Allergies Allergy/AdvReac Type Severity Reaction Status Date / Time lisinopril Allergy Unknown Verified 01/14/25 23:48 Review of Systems Review of Systems Narrative: A complete ROS was completed with all pertinent positives and negatives documented in HPI. All other systems were reviewed and are negative. Exam Vital Signs (past 8 hours): - 01/14/25 23:48 Temperature 97.5 F L Pulse Rate 53 L Respiratory Rate 16 Blood Pressure 179/85 H Pulse Oximetry 95 Oxygen Delivery Method Room Air Oxygen Delivery Method Room Air Narrative Exam Narrative: GEN: Alert and oriented X3. No acute distress. Well-nourished. EYES: PERRLA, EOMI. HENT: Moist mucus membranes, no scleral icterus, normal neck ROM. RESP: Unlabored breathing, equal rise and fall of chest bilaterally, no cyanosis appreciated. CV: No peripheral edema, unremarkable heart rate. ABD: Soft, non-tender, non-distended, no palpable masses. : Unremarkable penis, no urethral discharge, no meatal stenosis. EXT: No edema, clubbing or cyanosis. SKIN: No rashes or lesions. NEURO: No focal neurologic deficits, CN II-XII grossly intact. PSYCH: Cooperative, appropriate mood and affect. [facility] Medical History Primary osteoarthritis of right knee Basal cell carcinoma (BCC) History of bladder stone Heart murmur Skin cancer Paresthesias Sleep apnea with use of continuous positive airway pressure (CPAP) HTN (hypertension) Elevated PSA Arthritis Intermittent tremor Spinal stenosis Cervical radiculopathy Parkinson's disease Surgical History Hx of shoulder surgery Hx of prostate biopsy Hx of right knee surgery Hx of hernia repair Social History household members: spouse, family and other Tobacco & Substance Use Smoking Status: Never smoker alcohol intake: current Assessment & Plan Assessment and plan (1) BPH loc w urin obs/LUTS: Status: Acute Plan: 79 y/o M w/ long-standing h/o BPH w/ LUTS who developed AUR in Dec in the setting of worsening constipation. A blakely catheter was placed with drainage of 1800 cc's of clear yellow urine. He was then started on Tamsulosin 0.4mg daily and was able to pass his voiding trial on 14 Jan 2025. Unfortunately, he developed acute urinary retention again. A cystoscopy was performed due to multiple attempts by nursing to place a catheter and a 16Fr lummi tip catheter was placed with drainage of more than 1500 cc's of clear yellow urine. He will return to Urology clinic in a few weeks for a cystoscopy, TRUS prostate and Uroflow/PVR. (2) Urinary retention: Status: Acute Plan: Please see plan above. Time-Based Coding :: [TOTAL MINUTES] spent with patient and on the chart (including review of chart, obtaining history, exam, reviewing outside data, placing orders, documenting exam and treatment plan, and counseling patient) on [DATE]. PROFEE Charge Codes Inpatient or Observation consultation: [id number]
--- NOTE | 2025-01-15 02:33 | PM.PROC.IH ---
Procedures Date/Time Date of procedure: 01/15/25 Time of procedure: 02:34 General Procedure description: Cystoscopy: CPT Code 58098 Indication: 79 y/o M w/ acute urinary retention following multiple attempts at passage of a blakely catheter by nursing staff. Following informed consent, proper positioning and standard sterile prep technique, the 16Fr flexible cystoscope was inserted into his urethra and easily advanced into his bladder. He was noted to have bilateral coaptating lateral prostatic lobes with multiple false passages, visibility was poor secondary to bleeding from his prostate from multiple unsuccessful attempts at catheter placement. A 0.035 sensor tip ureteral guidewire was advanced through the scope and into his bladder. The scope was removed and a 16Fr [place] tip catheter was advanced over the guidewire and into his bladder with immediate drainage of more than 1500 cc's of clear yellow urine. 10cc of sterile water was utilized for balloon insufflation. Complications: none PROFEE Ivf Embryologist Document charge(s): Yes
[2025-01-15 02:34] VITALS: PULSE 57; O2SAT 98
[2025-01-15 02:35] VITALS: BP 182/85; PULSE 57; O2SAT 98
[2025-01-15 03:00] VITALS: PULSE 56; O2SAT 97
[2025-01-15 03:01] VITALS: BP 162/78; PULSE 56; O2SAT 97
--- NOTE | 2025-01-15 03:08 | PC.NURSE ---
PT had catheter removed at 0800. unable to urinate since, abdomen is firm
--- NOTE | 2025-01-15 03:11 | PC.NURSE ---
Attempted to place catheter multiple times, using 14f coude, 12f cathetar and 16f coude. Noted blood in catheter tubing, provider aware
== END 2025-01-15 03:21 | disposition home or self-care (01) ==
PROVIDERS: Emergency Provider Emergency Medicine; PCP Internal Medicine
DX: N40.1 Benign prostatic hyperplasia with lower urinary tract symptoms (principal); R33.8 Other retention of urine; I10 Essential (primary) hypertension
CPT/HCPCS: 51798; 99283

== ENCOUNTER → 2025-01-27 11:55 | Outpatient (CLI) | payer MEDICARE, BC, SELFPAY ==
[2017-08-01 16:44] VITALS: BMI 34.8
--- NOTE | 2025-01-27 11:57 | DI.US.S_ITS ---
PROCEDURE: US RENAL COMPLETE INDICATIONS: 79 y/o M w/ bilateral hydronephrosis, eval for hydro TECHNIQUE: Real-time scanning was performed of the kidneys and bladder, with image documentation. COMPARISON: [facility], CT, CT ABDOMEN PELVIS W CON, 01/01/2025, 12:25. FINDINGS: Kidneys: Kidneys are normal in size. Right kidney measures 13.0 cm long; left kidney measures 11.8 cm long. Right renal cortical thickness is 1.1 cm; left renal cortical thickness is 1.2 cm. Renal cortical echotexture is normal. No hydronephrosis or nephrolithiasis. No suspicious solid mass lesions. Bladder: Berger catheter is seen in a decompressed urinary bladder. Echogenic material seen between Berger catheter and adjacent bladder wall which may represent debris versus blood clots. Anterior bladder wall thickening measures up to 1 cm in thickness. Miscellaneous: No free pelvic fluid. Enlarged prostate gland measures 5.7 x 5.1 x 5 cm in size. IMPRESSION: 1. No obstructing stones or hydronephrosis. No gross solid appearing renal lesion. 2. Decompressed urinary bladder with suggestion of bladder wall thickening and possible internal debris versus blood clots suggest clinical correlation. Dictated by: Chuck Wright M.D. on 01/27/2025 at 14:33 Approved by: Chuck Wright M.D. on 01/27/2025 at 14:37
== END ==
LOC: US 11:57
PROVIDERS: PCP Internal Medicine; Referring Provider Urology; Visit Provider Urology
DX: N40.1 Benign prostatic hyperplasia with lower urinary tract symptoms (principal); R33.9 Retention of urine, unspecified
CPT/HCPCS: 76770